=== PATIENT | male | born 2000 | race Caucasian/White ===

== ENCOUNTER 2024-08-16 17:33 | Inpatient (IN) | payer BC, OTHER ==
[2024-08-16] MEDS: ETOMIDATE 2 MG/ML 10 ML VIAL IVP STA (17:44)
[2024-08-16] MEDS: ROCURONIUM 10 MG/ML (5 ML VIAL) IV STA (17:45)
[2024-08-16 18:03] LABS: Glucose,Whole Blood 232 mg/dL (70-110)
[2024-08-16 18:17] LABS: Basophils # (A) 0.07 10*3/uL (0.00-0.10); Basophils % (A) 0.4 %; Eosinophils # (A) 0.14 10*3/uL (0.04-0.35); Eosinophils % (A) 0.9 %; HCT 42.2 % (39.6-50.0); HGB 14.2 g/dL (13.0-17.0); Lymphocytes # (A) 3.67 10*3/uL (0.90-5.00); Lymphocytes % (A) 22.9 %; MCH 32.2 pg (27.0-32.0); MCHC 33.6 g/dL (32.0-37.0); MCV 95.7 fL (80.0-97.0); Monocytes # (A) 0.61 10*3/uL (0.20-1.00); Monocytes % (A) 3.8 %; Neutrophils # (A) 10.76 10*3/uL (1.80-7.70); Neutrophils % (A) 67.3 %; Platelet Count 413 10*3/uL (140-440); RBC 4.41 10*6/uL (4.40-5.60); RDW 12.4 % (11.5-14.5); WBC 16.01 10*3/uL (4.50-10.00)
--- NOTE | 2024-08-16 18:18 | ED ---
SOB HPI - General Chief Complaint: Shortness of Breath Stated Complaint: SOB Time Seen by Provider: 08/16/24 17:40 Source: family, EMS Mode of arrival: EMS Limitations: physical limitation - History of Present Illness Initial Comments: 24-year-old male with past medical history of Duchenne's muscular dystrophy who presents to the emergency department from home. Patient is verbal, nonambulatory. He has a history of hypertension and takes lisinopril and atenolol. This morning the patient began having a cough and was having some difficulty clearing his secretions. Mother states that they had moved him to his wheelchair and the patient started gasping. His lips turned blue and the patient went unresponsive. They called EMS. They were instructed to start CPR. Patient had CPR for approximately 5 minutes according to mother and EMS. When they arrived on scene they placed the patient on the monitor and found that he had an organized rhythm. He was responsive and able to answer some questions however was still having difficulty breathing. The patient was bagged after a nasal airway was placed. EMS stated that his original saturations were in the 50s. He did not require any medications upon transfer into the hospital. Mot her states he is never had any breathing issues. He does use breathing treatments and they were administered today however did not seem to help him. He has not had any fevers. No sick contacts. No history of PEs or DVTs. No other alleviating, precipitating or modifying factors - Related Data Home Medications Medication Instructions Recorded Confirmed Ascorbic Acid [Vitamin C] 1,000 mg PO DAILY 08/16/24 08/16/24 Azelastine HCl [Astelin Nasal 1 spray EA NOSTRIL BID 08/16/24 08/16/24 [place]] Cetirizine HCl [Zyrtec] 10 mg PO DAILY 08/16/24 08/16/24 Inulin/Chromium Picolinate [Fiber 2 tab PO DAILY 08/16/24 08/16/24 Gummies Chew] Multivitamins, Thera [Multivitamin 1 tab PO DAILY 08/16/24 08/16/24 (formulary)] [place]-3/Dha/Epa/Fish Oil [Fish Oil 1 cap PO DAILY 08/16/24 08/16/24 1,000 mg Softgel] atenoloL [Tenormin] 25 mg PO DAILY 08/16/24 08/16/24 lisinopriL [Zestril] 5 mg PO DAILY 08/16/24 08/16/24 Allergies Allergy/AdvReac Type Severity Reaction Status Date / Time No Known Allergies Allergy Verified 08/16/24 19:56 Review of Systems ROS Statement: Those systems with pertinent positive or pertinent negative responses have been documented in the HPI. ROS Other: All systems not noted in ROS Statement are negative. Past Medical History Past Medical History: Musculoskeletal Disorder History of Any Multi-Drug Resistant Organisms: None Reported Past Surgical History: No Surgical Hx Reported Past Psychological History: No Psychological Hx Reported - Past Family History Father Family Medical History: Hypertension General Exam Limitations: physical limitation General appearance: alert, in distress Head exam: Present: atraumatic, normocephalic, normal inspection Eye exam: Present: normal appearance, PERRL, EOMI. Absent: scleral icterus, conjunctival injection, periorbital swelling Neck exam: Present: normal inspection. Absent: tenderness, meningismus, lymphadenopathy Respiratory exam: Present: accessory muscle use, decreased breath sounds, other (Agonal) Cardiovascular Exam: Present: bradycardia GI/Abdominal exam: Present: soft, normal bowel sounds. Absent: distended, tenderness, guarding, rebound, rigid Extremities exam: Present: normal inspection, full ROM, normal capillary refill. Absent: tenderness, pedal edema, joint swelling, calf tenderness Psychiatric exam: Present: anxious Skin exam: Present: pallor Course Vital Signs 08/16/24 08/16/24 08/16/24 17:35 17:40 18:05 Temperature 95 F L Pulse Rate 51 L 121 H Respiratory 30 H 24 18 Rate Blood Pressure 198/121 116/90 O2 Sat by Pulse 87 L 100 Oximetry Fraction of Inspired Oxygen (FIO2) 08/16/24 08/16/24 08/16/24 18:18 18:59 19:19 Temperature 95.5 F L 95.4 F L Pulse Rate 118 H 98 102 H Respiratory 18 18 23 Rate Blood Pressure 124/83 110/74 110/74 O2 Sat by Pulse 100 100 100 Oximetry Fraction of 100 Inspired Oxygen (FIO2) 08/16/24 08/16/24 08/16/24 19:50 20:00 20:54 Temperature 95.5 F L Pulse Rate 111 H 112 H 113 H Respiratory 23 24 11 L Rate Blood Pressure 118/91 113/86 O2 Sat by Pulse 100 98 Oximetry Fraction of Inspired Oxygen (FIO2) Procedures - Intubation Sedative: Etomidate Mg Given: 20 Paralytic: Rocuronium Mg Given: 50 Laryngoscope: fiber optic video scope Size: 3 ET Tube Size: 7.5 ET Tube Uncuffed: No Tube Secured Depth (cm): 23 Tube Secured Location: teeth Tube Placement Confirmation: visualized tube passing through cords, confirmation by capnometry Patient Tolerated Procedure: well, no complications Medical Decision Making - Medical Decision Making Was pt. sent in by a medical professional or institution (Dr. PA, DIRECTOR OF CHILD WELFARE SERVICES, urgent care, hospital, or retirement...) When possible be specific @ -No Did you speak to anyone other than the patient for history (EMS, parent, family, police, friend...)? What history was obtained from this source @ -I spoke with EMS for history who states that they had to bag the patient on the way in. I also spoke with mother who states that the respiratory distress was sudden onset Did you review nursing and triage notes (agree or disagree)? Why? @ -I reviewed and agree with nursing and triage notes Were old charts reviewed (outside hosp., previous admission, EMS record, old EKG, old radiological studies, urgent care reports/EKG's, retirement records)? Report findings @ -No old charts were reviewed Differential Diagnosis (chest pain, altered mental status, abdominal pain women, abdominal pain men, vaginal bleeding, weakness, fever, dyspnea, syncope, headache, dizziness, GI bleed, back pain, seizure, CVA, palpatations, mental health, musculoskeletal)? @ -Differential Dyspnea: Coronary syndrome, arrhythmia, tamponade, asthma, COPD, pulmonary embolism, pneumonia, pneumothorax, pulmonary effusion, anaphylaxis, diabetic ketoacidosis, flailed chest, pulmonary contusion, diaphragmatic rupture, anemia, neuromuscular, this is not meant to be an all-inclusive list. EKG interpreted by me (3pts min.). @ -Yes and demonstrates sinus tachycardia with a rate of 104. HI interval 138. QRS 115. QTc of 460. No acute ST segment elevations or depressions X-rays interpreted by me (1pt min.). @ -Yes which demonstrates left mainstem intubation CT interpreted by me (1pt min.). @ -Yes which demonstrates pneumomediastinum. Also atelectasis of the right middle lobe U/S interpreted by me (1pt. min.). @ -None done What testing was considered but not performed or refused? (CT, X-rays, U/S, labs)? Why? @ -None What meds were considered but not given or refused? Why? @ -None Did you discuss the management of the patient with other professionals (professionals i.e. , PA, DIRECTOR OF CHILD WELFARE SERVICES, lab, RT, psych nurse, manager social work, bleach liquor maker, teacher, forest fire officer, pillowcase cutter)? Give summary @ -I spoke with dr soto from [facility] and EM for admissions Was smoking cessation discussed for >3mins.? @ -No Was critical care preformed (if so, how long)? @ -Yes, 40 minutes of critical care time for intubation of the patient and management of vent settings Were there social determinants of health that impacted care today? How? (Homelessness, low income, unemployed, alcoholism, drug addiction, transportation, low edu. Level, literacy, decrease access to med. care, fci, rehab)? @ -No Was there de-escalation of care discussed even if they declined (Discuss DNR or withdrawal of care, Hospice)? DNR status @ -Yes, mother wants the patient to be a full code What co-morbidities impacted this encounter? (DM, HTN, Smoking, COPD, CAD, Cance r, CVA, ARF, Chemo, Hep., AIDS, mental health diagnosis, sleep apnea, morbid obesity)? @ -Duchenne's muscular dystrophy Was patient admitted / discharged? Hospital course, mention meds given and rout e, prescriptions, significant lab abnormalities, going to OR and other pertinent info. @ -Upon arrival patient was promptly evaluated in trauma 1. Thorough history and physical exam was performed. Patient has agonal breathing and pallor to his face. We did attempt to suction the patient however he is bradycardic and hypoxic and therefore rapid decision is made to intubate the patient. The pat ient was given 20 mg of etomidate. I am able to pass a 7 and half ET tube to the cords the patient is given 50 mg of rocuronium. Tube was secured at 23 cm at the teeth. patient is placed on the vent. Laboratory studies are conducted. Twelve-lead EKG was performed as well as an Accu-Chek. Chest x-ray does demonstrate left mainstem intubation and therefore the tube is retracted. Laboratory studies are conducted. Patient does go for CT chest abdomen pelvis. CT does demonstrate pneumomediastinum and atelectasis of the right lung - middle. Patient is initiated on antibiotics. He does require admission to the intensive care unit. I did speak with Dr. Soto with pilates instructor for admissi on. Patient was taken to the floor in stable condition with a guarded prognosis Undiagnosed new problem with uncertain prognosis? @ -Yes Drug Therapy requiring intensive monitoring for toxicity (Heparin, Nitro, Insulin, Cardizem)? @ -Propofol Were any procedures done? @ -Intubation Diagnosis/symptom? @ -Acute respiratory arrest, [id number] cardiac arrest with ROSC, vent dependent respiratory failure, possible aspiration, history of Duchenne's muscular dystrophy Acute, or Chronic, or Acute on Chronic? @ -Acute Uncomplicated (without systemic symptoms) or Complicated (systemic symptoms)? @ -Complicated Side effects of treatment? @ -No Exacerbation, Progression, or Severe Exacerbation? @ -No Poses a threat to life or bodily function? How? (Chest pain, [place], [place], pneumonia, PE, COPD, DKA, ARF, appy, cholecystitis, CVA, Diverticulitis, Homicidal, Suicidal, threat to staff... and all critical care pts) @ -Yes this patient did suffer [id number] cardiac arrest - Lab Data Result diagrams: 08/27/24 03:16 08/27/24 03:16 Lab Results 08/16/24 08/16/24 08/16/24 Range/Units 17:52 18:00 18:00 WBC 16.01 H (4.50-10.00) 10*3/uL RBC 4.41 (4.40-5.60) 10*6/uL Hgb 14.2 (13.0-17.0) g/dL Hct 42.2 (39.6-50.0) % MCV 95.7 (80.0-97.0) fL MCH 32.2 H (27.0-32.0) pg MCHC 33.6 (32.0-37.0) g/dL Plt Count 413 (140-440) 10*3/uL MPV 9.0 L (9.5-12.2) fL Immature Gran % (Auto) 4.7 % Neutrophils % 67.3 % Lymphocytes % 22.9 % Monocytes % 3.8 % Eosinophils % 0.9 % Basophils % 0.4 % Immature Gran # 0.76 H (0.00-0.04) 10*3/uL Neutrophils # 10.76 H (1.80-7.70) 10*3/uL Lymphocytes # 3.67 (0.90-5.00) 10*3/uL Monocytes # 0.61 (0.20-1.00) 10*3/uL Eosinophils # 0.14 (0.04-0.35) 10*3/uL Basophils # 0.07 (0.00-0.10) 10*3/uL PT 12.1 (10.0-12.5) sec INR 1.1 (<1.2) APTT 22.7 (22.0-30.0) sec VBG pH (7.31-7.41) VBG pCO2 (37-51) mmHg VBG HCO3 (24-28) mmol/L Sodium (137-145) mmol/L Potassium (3.5-5.1) mmol/L Chloride (98-107) mmol/L Carbon Dioxide (22-30) mmol/L Anion Gap mmol/L BUN (9-20) mg/dL Creatinine (0.66-1.25) mg/dL Est GFR (CKD-EPI)AfAm (>60 ml/min/1.73 sqM) Est GFR (CKD-EPI)NonAf (>60 ml/min/1.73 sqM) Glucose (74-99) mg/dL POC Glucose (mg/dL) 232 H (70-110) mg/dL POC Glu Furnace Mason ID Sarmad Powell Lactic Ac Sepsis Rflx Plasma Lactic Acid Rhett (0.7-2.0) mmol/L Calcium (8.4-10.2) mg/dL Total Bilirubin (0.2-1.3) mg/dL AST (17-59) U/L ALT (4-49) U/L Alkaline Phosphatase (38-126) U/L Troponin I (0.000-0.034) ng/mL NT-Pro-B Natriuret Pep pg/mL Total Protein (6.3-8.2) g/dL Albumin (3.5-5.0) g/dL Urine Color Urine Appearance (Clear) Urine pH (5.0-8.0) Ur Specific [place] (1.001-1.035) Urine Protein (Negative) Urine Glucose (UA) (Negative) Urine Ketones (Negative) Urine Blood (Negative) Urine Nitrite (Negative) Urine Bilirubin (Negative) Urine Urobilinogen (<2.0) mg/dL Ur Leukocyte Esterase (Negative) Urine RBC (0-5) /hpf Urine WBC (0-5) /hpf Hyaline Casts (0-2) /lpf Urine Mucus (None) /hpf 08/16/24 08/16/24 08/16/24 Range/Units 18:00 18:00 18:00 WBC (4.50-10.00) 10*3/uL RBC (4.40-5.60) 10*6/uL Hgb (13.0-17.0) g/dL Hct (39.6-50.0) % MCV (80.0-97.0) fL MCH (27.0-32.0) pg MCHC (32.0-37.0) g/dL Plt Count (140-440) 10*3/uL MPV (9.5-12.2) fL Immature Gran % (Auto) % Neutrophils % % Lymphocytes % % Monocytes % % Eosinophils % % Basophils % % Immature Gran # (0.00-0.04) 10*3/uL Neutrophils # (1.80-7.70) 10*3/uL Lymphocytes # (0.90-5.00) 10*3/uL Monocytes # (0.20-1.00) 10*3/uL Eosinophils # (0.04-0.35) 10*3/uL Basophils # (0.00-0.10) 10*3/uL PT (10.0-12.5) sec INR (<1.2) APTT (22.0-30.0) sec VBG pH (7.31-7.41) VBG pCO2 (37-51) mmHg VBG HCO3 (24-28) mmol/L Sodium 136 L (137-145) mmol/L Potassium 3.7 (3.5-5.1) mmol/L Chloride 99 (98-107) mmol/L Carbon Dioxide 22 (22-30) mmol/L Anion Gap 15 mmol/L BUN 9 (9-20) mg/dL Creatinine 0.19 L (0.66-1.25) mg/dL Est GFR (CKD-EPI)AfAm >90 (>60 ml/min/1.73 sqM) Est GFR (CKD-EPI)NonAf >90 (>60 ml/min/1.73 sqM) Glucose 215 H (74-99) mg/dL POC Glucose (mg/dL) (70-110) mg/dL POC Glu [place] ID Lactic Ac Sepsis Rflx Plasma Lactic Acid Rhett 7.0 H* (0.7-2.0) mmol/L Calcium 8.6 (8.4-10.2) mg/dL Total Bilirubin 0.8 (0.2-1.3) mg/dL AST 61 H (17-59) U/L ALT 48 (4-49) U/L Alkaline Phosphatase 51 (38-126) U/L Troponin I 0.034 (0.000-0.034) ng/mL NT-Pro-B Natriuret Pep <20 pg/mL Total Protein 6.7 (6.3-8.2) g/dL Albumin 4.1 (3.5-5.0) g/dL Urine Color Urine Appearance (Clear) Urine pH (5.0-8.0) Ur Specific Anderson (1.001-1.035) Urine Protein (Negative) Urine Glucose (UA) (Negative) Urine Ketones (Negative) Urine Blood (Negative) Urine Nitrite (Negative) Urine Bilirubin (Negative) Urine Urobilinogen (<2.0) mg/dL Ur Leukocyte Esterase (Negative) Urine RBC (0-5) /hpf Urine WBC (0-5) /hpf Hyaline Casts (0-2) /lpf Urine Mucus (None) /hpf 08/16/24 08/16/24 08/16/24 Range/Units 18:23 18:46 19:46 WBC (4.50-10.00) 10*3/uL RBC (4.40-5.60) 10*6/uL Hgb (13.0-17.0) g/dL Hct (39.6-50.0) % MCV (80.0-97.0) fL MCH (27.0-32.0) pg MCHC (32.0-37.0) g/dL Plt Count (140-440) 10*3/uL MPV (9.5-12.2) fL Immature Gran % (Auto) % Neutrophils % % Lymphocytes % % Monocytes % % Eosinophils % % Basophils % % Immature Gran # (0.00-0.04) 10*3/uL Neutrophils # (1.80-7.70) 10*3/uL Lymphocytes # (0.90-5.00) 10*3/uL Monocytes # (0.20-1.00) 10*3/uL Eosinophils # (0.04-0.35) 10*3/uL Basophils # (0.00-0.10) 10*3/uL PT (10.0-12.5) sec INR (<1.2) APTT (22.0-30.0) sec VBG pH 7.21 L (7.31-7.41) VBG pCO2 61 H (37-51) mmHg VBG HCO3 25 (24-28) mmol/L Sodium (137-145) mmol/L Potassium (3.5-5.1) mmol/L Chloride (98-107) mmol/L Carbon Dioxide (22-30) mmol/L Anion Gap mmol/L BUN (9-20) mg/dL Creatinine (0.66-1.25) mg/dL Est GFR (CKD-EPI)AfAm (>60 ml/min/1.73 sqM) Est GFR (CKD-EPI)NonAf (>60 ml/min/1.73 sqM) Glucose (74-99) mg/dL POC Glucose (mg/dL) (70-110) mg/dL POC Glu [place] ID Lactic Ac Sepsis Rflx Y Plasma Lactic Acid Rhett (0.7-2.0) mmol/L Calcium (8.4-10.2) mg/dL Total Bilirubin (0.2-1.3) mg/dL AST (17-59) U/L ALT (4-49) U/L Alkaline Phosphatase (38-126) U/L Troponin I (0.000-0.034) ng/mL NT-Pro-B Natriuret Pep pg/mL Total Protein (6.3-8.2) g/dL Albumin (3.5-5.0) g/dL Urine Color Yellow Urine Appearance Cloudy (Clear) Urine pH 6.5 (5.0-8.0) Ur Specific Anderson 1.025 (1.001-1.035) Urine Protein 1+ H (Negative) Urine Glucose (UA) Negative (Negative) Urine Ketones 2+ H (Negative) Urine Blood Moderate H (Negative) Urine Nitrite Negative (Negative) Urine Bilirubin Negative (Negative) Urine Urobilinogen 2.0 (<2.0) mg/dL Ur Leukocyte Esterase Negative (Negative) Urine RBC 5 (0-5) /hpf Urine WBC 1 (0-5) /hpf Hyaline Casts 23 H (0-2) /lpf Urine Mucus Few H (None) /hpf Disposition Clinical Impression: Cardiac arrest, Respiratory arrest, Atelectasis, Leukocytosis Disposition: ADMITTED IP TO THIS [facility] Condition: Serious Is patient prescribed a controlled substance at d/c from ED?: No Time of Disposition: 19:53 Decision to Admit Reason: Admit from EC Decision Date: 08/16/24 Decision Time: 19:53
[2024-08-16 18:24] LABS: ALT 48 U/L (4-49); African American GFR (CKD) >90 (>60 ml/min/1.73 sqM); Albumin 4.1 g/dL (3.5-5.0); Anion Gap 15 mmol/L; Blood Urea Nitrogen 9 mg/dL (9-20); Calcium 8.6 mg/dL (8.4-10.2); Carbon Dioxide 22 mmol/L (22-30); Chloride 99 mmol/L (98-107); Glucose 215 mg/dL (74-99); Non-African American GFR(CKD) >90 (>60 ml/min/1.73 sqM); Sodium 136 mmol/L (137-145); Total Bilirubin 0.8 mg/dL (0.2-1.3); Total Protein 6.7 g/dL (6.3-8.2)
[2024-08-16 18:26] LABS: INR 1.1 (<1.2); Prothrombin Time 12.1 sec (10.0-12.5)
[2024-08-16 18:27] LABS: Partial Thromboplastin Time 22.7 sec (22.0-30.0)
[2024-08-16 18:32] LABS: NT-Pro-B-Type Natriuretic Pept <20 pg/mL
--- NOTE | 2024-08-16 18:35 | XR ---
EXAMINATION TYPE: XR chest 1V portable, XR chest 1V portable DATE OF EXAM: 08/16/2024 6:04 PM COMPARISON: Chest radiographs from same day CLINICAL INDICATION: Male, 24 years old with history of Line placement; [facility] TECHNIQUE: Sequential frontal radiographs of the chest were performed x 2 XR chest 1V portable, XR ch est 1V portable Frontal view of the chest. FINDINGS: Lungs/Pleura: Elevated right diaphragm. There is no evidence of pleural effusion, focal consolidation , or pneumothorax. Pulmonary vascularity: Unremarkable. Heart/mediastinum: Cardiomediastinal silhouette is unremarkable. Musculoskeletal: No acute osseous pathology. Endotracheal tube remains within the left main bronchus. Gaseous distention of bowel in the upper abdomen. IMPRESSION: 1. Endotracheal tube in the left main bronchus. Retraction recommended of 2-3 cm 2. Gaseous distention of bowel and stomach. Consider nasogastric tube placement. [facility], , 08/16/2024 6:33 PM
[2024-08-16 18:46] LABS: AST 61 U/L (17-59); Potassium 3.7 mmol/L (3.5-5.1)
[2024-08-16 18:47] LABS: Alkaline Phosphatase 51 U/L (38-126)
[2024-08-16] MEDS: LACTATED RINGERS 1,000 ML IV SCH ×2 (18:57→22:48)
[2024-08-16 19:00] LABS: Appearance,Urine Cloudy (Clear); Bilirubin,Urine Negative (Negative); Blood,Urine Moderate (Negative); Color,Urine Yellow; Glucose,Urine (UA) Negative (Negative); Hyaline Casts,Urine 23 /lpf (0-2); Ketones,Urine 2+ (Negative); Leukocyte Esterase,Urine Negative (Negative); Mucus,Urine Few /hpf; Nitrite,Urine Negative (Negative); PH, Urine 6.5 (5.0-8.0); Protein,Urine 1+ (Negative); RBC,Urine 5 /hpf (0-5); Specific Gravity,Urine 1.025 (1.001-1.035); WBC,Urine 1 /hpf (0-5)
--- NOTE | 2024-08-16 19:26 | CT ---
EXAMINATION TYPE: CT chest angio for PE, CT abdomen w con DATE OF EXAM: 08/16/2024 6:59 PM COMPARISON: Plain film radiograph same day. 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 No prior TECHNIQUE/CONTRAST: CTA scan of the thorax is performed with IV Contrast, patient injected with 100ml (accession [id number] ), 100 ml (accession [id number]) mL of Isovue 370, MIP images are created and reviewed these are create d on a separate workstation.. CT DLP: 1346.2 mGycm, Automated exposure control for dose reduction was used. TECHNIQUE: Axial CT chest angio for PE, CT abdomen w con;Sagittal and coronal reformats were created on a separate workstation. Contrast used:100ml (accession [id number]), 100 ml (accession [id number]) mL of Isovue [address], (none if empty) Oral contrast used: without Oral Contrast (none if empty) FINDINGS: Lungs/Pleura: Atelectasis of the right middle lobe. No evidence of focal consolidation, pleural effus ion or pneumothorax. Airway: Secretions are seen within the right middle lobe and right lower lobe airways. Endotracheal t ube approximately 13 mm above the meir. Heart: Size within normal limits. No significant coronary artery calcifications. Vasculature: There is no evidence for a filling defect within the pulmonary vasculature to suggest ac jerrica pulmonary embolism. The pulmonary artery is of normal size. Mediastinum: Pneumomediastinum noted around the esophagus and trachea. No gross evidence of adenopath y. Musculoskeletal: No acute osseous abnormalities scoliosis changes present. Soft Tissues/lymph nodes: Gynecomastia changes bilaterally. Lower neck: No significant findings. ABDOMEN LIVER: Diffusely hypoattenuating parenchyma. GALLBLADDER AND BILE DUCTS: Unremarkable. PANCREAS: Unremarkable. SPLEEN: Unremarkable. ADRENAL GLANDS: Unremarkable. KIDNEYS AND URETERS: No evidence of hydronephrosis or obstructing renal calculus. The ureters are unr emarkable. STOMACH AND BOWEL: No evidence of bowel obstruction. Nasogastric tube terminating in the gastric lume n. Gaseous dilation of bowel in the upper abdomen and stomach. PERITONEUM/RETROPERITONEUM: No evidence of pneumoperitoneum or free fluid. VASCULATURE: No evidence of aortic aneurysm. MUSCULOSKELETAL: Severe scoliosis changes present. Atrophy changes of the psoas muscles bilaterally p artially visualized. LYMPH NODES: No gross evidence for lymphadenopathy. SOFT TISSUE/ABDOMINAL WALL: Unremarkable IMPRESSION: 1. No evidence of pulmonary embolism. 2. Pneumomediastinum no obvious airway defect visualized. 3. No evidence for bowel obstruction. Gaseous dilation of bowel in the upper abdomen. 4. Endotracheal tube now approximately 13 mm above the meir. 5. Secretions within the right lower lobe and right middle lobe airways with atelectasis of the righ t middle lobe. 6. No acute intra-abdominal process. 7. Hepatic steatosis. 8. Nasogastric tube terminating in the stomach. [facility], , 08/16/2024 7:23 PM
[2024-08-16] MEDS ORDERED: NALOXONE 0.4 MG/ML 1 ML VIAL IV PRN (20:00)
[2024-08-16] MEDS ORDERED: IPRATROPIUM-ALBUTEROL 3 ML NEB INHALATION PRN (20:00)
[2024-08-16] MEDS ORDERED: Potassium Replacement Protocol 1 EACH MISC MISCELLANE PRN (20:00)
[2024-08-16] MEDS ORDERED: Magnesium Replacement Protocol 1 EACH MISC MISCELLANE PRN (20:00)
[2024-08-16 20:03] LABS: VBG PH 7.21 (7.31-7.41)
[2024-08-16] MEDS: cefTRIAXone IN SWFI 1,000 MG/10 ML SYRINGE IVP ONE (20:15)
[2024-08-16 20:55] LABS: Glucose,Whole Blood 129 mg/dL (70-110)
[2024-08-16] MEDS ORDERED: HYDROmorphone 0.5 MG/0.5 ML SYRINGE IM PRN (21:53)
[2024-08-16] MEDS: SCOPOLAMINE 1 MG/72 HR PATCH TRANSDERM STA (22:47)
[2024-08-16] MEDS: ACETAMINOPHEN TAB 325 MG TAB PO PRN (22:48)
[2024-08-17] MEDS: HYDROmorphone 0.5 MG/0.5 ML SYRINGE IVP PRN (02:18)
[2024-08-17 04:31] LABS: Basophils # (A) 0.02 10*3/uL (0.00-0.10); Basophils % (A) 0.1 %; HCT 40.1 % (39.6-50.0); Lymphocytes # (A) 1.26 10*3/uL (0.90-5.00); Lymphocytes % (A) 7.2 %; MCH 31.9 pg (27.0-32.0); MCHC 34.9 g/dL (32.0-37.0); MCV 91.3 fL (80.0-97.0); Monocytes # (A) 1.19 10*3/uL (0.20-1.00); Monocytes % (A) 6.8 %; Neutrophils # (A) 15.06 10*3/uL (1.80-7.70); Neutrophils % (A) 85.6 %; Platelet Count 348 10*3/uL (140-440); RBC 4.39 10*6/uL (4.40-5.60); RDW 12.3 % (11.5-14.5); WBC 17.58 10*3/uL (4.50-10.00)
[2024-08-17 04:45] LABS: Anion Gap 17 mmol/L; Blood Urea Nitrogen 2 mg/dL (9-20); Calcium 8.9 mg/dL (8.4-10.2); Carbon Dioxide 16 mmol/L (22-30); Chloride 99 mmol/L (98-107); Glucose 75 mg/dL (74-99); Potassium 3.6 mmol/L (3.5-5.1); Sodium 132 mmol/L (137-145)
[2024-08-17 05:02] LABS: African American GFR (CKD) >90 (>60 ml/min/1.73 sqM); Non-African American GFR(CKD) >90 (>60 ml/min/1.73 sqM)
[2024-08-17 05:32] LABS: ABG Base Excess -4.3 mmol/L; ABG HCO3 19 mmol/L (21-25); ABG Oxygen Saturation 99.8 % (94-97); ABG PCO2 29 mmHg (35-45); ABG PH 7.42 (7.35-7.45); ABG PO2 158 mmHg (83-108); ABG TCO2 20 mmol/L (19-24)
--- NOTE | 2024-08-17 05:42 | XR ---
EXAMINATION TYPE: XR chest 1V portable DATE OF EXAM: 08/17/2024 CLINICAL INDICATION: Male, 24 years old with history of Tube placement, progress study. SOB. TECHNIQUE: Single AP portable semiupright view of the chest is obtained. COMPARISON: Chest x-ray from one day earlier FINDINGS: Exam is suboptimal due to patient's marked scoliosis and positioning. Persistent low-lying endotracheal tube at level of meir should be pulled back 2.0 cm. Stable orogas tric tube. Persistent low lung volumes with more prominent central increased opacities bilaterally. Cardiac silh ouette size stable and within normal limits. IMPRESSION: 1. Suboptimal study. 2. Low-lying endotracheal tube should be pulled back 2.0 cm to be in more ideal position. 3. New bilateral central opacities suggest moderate to severe edema. Correlate for fluid overload sta te. [facility], , 08/17/2024 5:39 AM
[2024-08-17] MEDS: POTASSIUM BICARBONATE/CIT AC 20 MEQ TABLET.EFF NG-TUBE SCH (06:03)
[2024-08-17 06:45] LABS: Glucose,Whole Blood 74 mg/dL (70-110)
[2024-08-17 06:45] LABS: Allen Test Performed? No
[2024-08-17] MEDS: PANTOPRAZOLE 40 MG/10 ML VIAL IVP SCH (08:21)
[2024-08-17] MEDS: CHLORHEXIDINE GLUCONATE 15 ML CUP MUCOUS MEM SCH (08:21)
[2024-08-17] MEDS: ENOXAPARIN 40 MG/0.4 ML SYRINGE SQ SCH (08:21)
[2024-08-17] MEDS: atenoloL 25 MG TAB PO SCH (09:09)
[2024-08-17] MEDS: IPRATROPIUM-ALBUTEROL 3 ML NEB INHALATION SCH (11:31)
--- NOTE | 2024-08-17 12:02 | P.CNPUL ---
History of Present Illness Consult date: 08/17/24 Requesting physician: Estella Alvarez Reason for consult: other (ICU management, acute hypoxic respiratory failure) Chief complaint: Shortness of breath and unresponsiveness History of present illness: This is a 25-year-old white male known history of Duchenne muscular dystrophy, wheelchair-bound, nonambulatory, brought in last night to the emergency room, shortly after he had a cough episode, and patient had difficulty clearing his secretions according to his mother and dad. Patient was noted to be gasping for air, then he was moved to his wheelchair and he started developing more gasping episodes. Then the patient went blue and unresponsive. EMS was brought in started CPR on the patient for about 5 minutes. Shortly after patient was noted to have return of spontaneous circulation, he was responsive, however he was still having difficulty breathing. Patient was Ambu bag and brought into the ER. Upon arrival, patient was intubated and mechanically ventilated. According to family the patient was not sick recently, he had no fever, no chills, and no sick contacts. No history of pulmonary embolism or DVT. Patient had extensive workup in the ER including a chest x-ray, CT angiogram of the chest, and CT of abdomen. CT angiogram of the chest showed no evidence of pulmonary embolism there was evidence however of small pneumomediastinum endotracheal tube was noted to be in proper positions. There was evidence of secretions within the right lower lobe and right middle lobe and atelectasis of the right middle lobe. No evidence of intra-abdominal process noted. And it confirmed orogastric tube in the stomach. Patient was placed empirically on antibiotics, I was notified about this patient, and I accepted the patient to be admitted to the ICU. Saw the patient today, he is on assist-control rate of 22 tidal volume 350 FiO2 was 50% and I cut it down to 40% PEEP of 5. ABG earlier today at 60% showed a pO2 of 158 pCO2 29 pH of 7.42. Patient is on propofol at 45 mcg/kg/min he is also on LR at 100 cc/h patient is normally on atenolol and he had a scopolamine patch applied because of excessive secretions through the endotracheal tube. Antibiotics chase patient is on Rocephin and Zithromax. Chest x-ray today is a very poor quality especially with his body habitus cannot tell much based on chest x-ray findings. Extremely suboptimal chest x-ray. I was about to consider weaning and extubation of this patient, however I noted that the patient had leukocytosis with WBC of 17.5, his electrolytes are reflecting anion gap metabolic acidosis with bicarb of 16 and anion gap of 17. Lactic acid was normal electrolytes were relatively unremarkable except for slightly low sodium and potassium, hence I will hold back on weaning today, the plan is to continue antibiotics, continue suctioning of secretions, and weaning to be addressed in the next 24 hours. I believe it is a bit too early to wean and extubate this patient at this point yet. Review of Systems ROS unobtainable: due to endotracheal tube Past Medical History Past Medical History: Musculoskeletal Disorder Additional Past Medical History / Comment(s): Seasonal allergies, CPAP HS, History of Any Multi-Drug Resistant Organisms: None Reported Past Surgical History: No Surgical Hx Reported Past Anesthesia/Blood Transfusion Reactions: No Reported Reaction Past Psychological History: No Psychological Hx Reported - Past Family History Father Family Medical History: Hypertension Medications and Allergies Home Medications Medication Instructions Recorded Confirmed Type Ascorbic Acid [Vitamin C] 1,000 mg PO DAILY 08/16/24 08/16/24 History Azelastine HCl [Astelin Nasal 1 spray EA NOSTRIL BID 08/16/24 08/16/24 History [place]] Cetirizine HCl [Zyrtec] 10 mg PO DAILY 08/16/24 08/16/24 History Inulin/Chromium Picolinate [Fiber 2 tab PO DAILY 08/16/24 08/16/24 History Gummies Chew] Multivitamins, Thera [Multivitamin 1 tab PO DAILY 08/16/24 08/16/24 History (formulary)] [place]-3/Dha/Epa/Fish Oil [Fish Oil 1 cap PO DAILY 08/16/24 08/16/24 History 1,000 mg Softgel] atenoloL [Tenormin] 25 mg PO DAILY 08/16/24 08/16/24 History lisinopriL [Zestril] 5 mg PO DAILY 08/16/24 08/16/24 History Allergies Allergy/AdvReac Type Severity Reaction Status Date / Time No Known Allergies Allergy Verified 08/16/24 19:56 Physical Exam Vitals: Vital Signs Temp Pulse Resp BP Pulse Ox FiO2 08/17/24 11:41 126 H 08/17/24 11:35 100 08/17/24 11:33 40 08/17/24 11:31 124 H 08/17/24 11:00 120 H 22 92/56 99 08/17/24 10:00 121 H 22 98 08/17/24 09:00 133 H 22 97/61 100 08/17/24 08:49 40 08/17/24 08:00 99.3 F 134 H 21 90/59 99 50 08/17/24 07:52 100 08/17/24 07:39 50 08/17/24 07:00 138 H 22 89/66 99 08/17/24 06:46 50 08/17/24 06:00 134 H 22 102/61 100 08/17/24 05:00 122 H 22 86/67 100 08/17/24 04:01 60 08/17/24 04:00 98.4 F 123 H 22 97/68 99 60 08/17/24 03:00 133 H 22 96/57 99 08/17/24 02:00 118 H 22 100 08/17/24 01:00 113 H 22 100 08/17/24 00:05 60 08/17/24 00:00 98.2 F 111 H 22 99 100 08/16/24 23:22 114 H 22 93 L 08/16/24 23:00 112 H 17 98 08/16/24 22:21 60 08/16/24 22:00 112 H 18 122/90 08/16/24 21:00 115 H 19 100 08/16/24 20:55 95.7 F L 112 H 24 133/99 99 08/16/24 20:54 113 H 11 L 08/16/24 20:00 95.5 F L 112 H 24 113/86 98 08/16/24 19:50 111 H 23 118/91 100 08/16/24 19:19 95.4 F L 102 H 23 110/74 100 08/16/24 18:59 95.5 F L 98 18 110/74 100 08/16/24 18:18 118 H 18 124/83 100 100 08/16/24 18:17 100 08/16/24 18:05 121 H 18 116/90 100 08/16/24 17:40 24 08/16/24 17:35 95 F L 51 L 30 H 198/121 87 L Intake and Output 08/16/24 08/17/24 08/17/24 22:59 06:59 14:59 Intake Total 220.536 943.788 129 Output Total 65 570 290 Balance 155.536 373.788 -161 Intake: IV 200 824 129 Lactated Ringers 1,000 ml 200 800 120 @ 100 mls/hr IV .Q10H [facility] Rx#:[id number] Pressure Bag 24 9 Intake, IV Titration 20.536 119.788 Amount propofoL 1,000 mg In 20.536 119.788 Empty Bag 1 bag @ 15 MCG/ KG/MIN 6.12 mls/hr IV . [id number] [facility] Rx#:[id number] Output: Urine 65 570 290 Other: Voiding Method Indwelling Catheter Indwelling Catheter Weight 68.039 kg 71.1 kg ABP, PAP, CO, CI - Last 8 Hours Arterial Blood Pressure 93/74 Arterial Blood Pressure 87/55 Arterial Blood Pressure 99/59 General: Revealed a 24-year-old intubated, mechanically ventilated, frail looking, in no distress. Skin: Skin is warm and dry and no rashes or lesions are noted. Eye: Pupils are equal, round and reactive to light, extra-ocular movements are intact; there is normal conjunctiva bilaterally. Ears, nose, mouth and throat: There are moist mucous membranes and no oral lesions. Neck: The neck is supple, there is no tenderness or JVD. Endotracheal tube and orogastric tube are intact. Cardiovascular: Tachycardic, normal S1-S2, no S3 gallop. Respiratory: Diminished breath sounds at the bases no crackles rhonchi or wheezes Gastrointestinal: Soft nontender no megaly no rebound no guarding Musculoskeletal: Significant muscle atrophy and contractures noted throughout. Neurological: Muscle atrophy and weakness noted, upper extremities and lower extremities contractures noted Results - Laboratory Findings CBC and BMP: 08/17/24 04:17 08/17/24 04:17 ABG ABG pH 7.42 (7.35-7.45) 08/17/24 04:59 ABG pCO2 29 mmHg (35-45) L 08/17/24 04:59 ABG pO2 158 mmHg (83-108) H 08/17/24 04:59 ABG O2 Saturation 99.8 % (94-97) H 08/17/24 04:59 PT/INR, D-dimer PT 12.1 sec (10.0-12.5) 08/16/24 18:00 INR 1.1 (<1.2) 08/16/24 18:00 Abnormal lab findings: Abnormal Labs 08/16/24 08/16/24 08/16/24 17:52 18:00 18:00 WBC 16.01 H RBC MCH 32.2 H MPV 9.0 L Immature Gran # 0.76 H Neutrophils # 10.76 H Monocytes # Eosinophils # ABG pCO2 ABG pO2 ABG HCO3 ABG O2 Saturation VBG pH VBG pCO2 Sodium 136 L Carbon Dioxide BUN Creatinine 0.19 L Glucose 215 H POC Glucose (mg/dL) 232 H Plasma Lactic Acid Rhett AST 61 H Urine Protein Urine Ketones Urine Blood Hyaline Casts Urine Mucus 08/16/24 08/16/24 08/16/24 18:00 18:23 19:46 WBC RBC MCH MPV Immature Gran # Neutrophils # Monocytes # Eosinophils # ABG pCO2 ABG pO2 ABG HCO3 ABG O2 Saturation VBG pH 7.21 L VBG pCO2 61 H Sodium Carbon Dioxide BUN Creatinine Glucose POC Glucose (mg/dL) Plasma Lactic Acid Rhett 7.0 H* AST Urine Protein 1+ H Urine Ketones 2+ H Urine Blood Moderate H Hyaline Casts 23 H Urine Mucus Few H 08/16/24 08/16/24 08/17/24 20:53 21:04 04:17 WBC 17.58 H RBC 4.39 L MCH MPV 9.0 L Immature Gran # 0.05 H Neutrophils # 15.06 H Monocytes # 1.19 H Eosinophils # 0.00 L ABG pCO2 ABG pO2 ABG HCO3 ABG O2 Saturation VBG pH VBG pCO2 Sodium Carbon Dioxide BUN Creatinine Glucose POC Glucose (mg/dL) 129 H Plasma Lactic Acid Rhett 5.2 H* AST Urine Protein Urine Ketones Urine Blood Hyaline Casts Urine Mucus 08/17/24 08/17/24 04:17 04:59 WBC RBC MCH MPV Immature Gran # Neutrophils # Monocytes # Eosinophils # ABG pCO2 29 L ABG pO2 158 H ABG HCO3 19 L ABG O2 Saturation 99.8 H VBG pH VBG pCO2 Sodium 132 L Carbon Dioxide 16 L BUN 2 L Creatinine <0.15 L Glucose POC Glucose (mg/dL) Plasma Lactic Acid Rhett AST Urine Protein Urine Ketones Urine Blood Hyaline Casts Urine Mucus - Diagnostic Findings Chest x-ray: image reviewed (As noted in HPI) Additional studies: CT of the chest: As noted in HPI Assessment and Plan Assessment: Impression: Acute hypoxic respiratory failure most likely secondary to mucous plugging Right lower lobe and right middle lobe atelectasis, possible pneumonia considering leukocytosis and metabolic acidosis Acute sepsis secondary to above Brief cardiac arrest secondary to above History of Duchenne muscular dystrophy Chronic sinus tachycardia maintained on atenolol Seasonal allergic rhinitis Benign essential hypertension Recommendation: Continue ventilatory support Continue bronchodilators Continue antibiotics Check sputum cultures and change antibiotics accordingly if felt necessary Continue suctioning of tracheal secretions Not ready for weaning however that could be considered in the next 24 hours, nutritional support/enteral feeding GI and DVT prophylaxis Could consider bronchoscopy prior to weaning if felt to be needed Discussed and reviewed with family at bedside his overall condition prognosis and hopefully the patient could be extubated in the next 24 hours Will continue to follow Patient is critically ill and has significant comorbidities which may hinder the process of weaning and extubation successfully. Critical care time is over 50 minutes. Time with Patient: Greater than 30
[2024-08-17 12:12] LABS: Glucose,Whole Blood 58 mg/dL (70-110)
[2024-08-17] MEDS: DEXTROSE 50% SYRINGE 50 ML IVP STA (12:14)
[2024-08-17 12:37] LABS: Glucose,Whole Blood 96 mg/dL (70-110)
--- NOTE | 2024-08-17 13:32 | P.HPIM ---
History of Present Illness H&P Date: 08/17/24 History of present illness; patient is a 24-year-old gentleman with past medical history significant for Duchenne muscular dystrophy who presents the ER from home for respiratory distress. Apparently patient was all right yesterday morning when while at home patient starting having cough and started having shortness of breath. Patient started gasping for air, patient went unresponsive, patient family started CPR and EMS was called. Patient had CPR for approximately 5 minutes. EMS arrived at the spot and bagged en route to the hospital. In the ER, patient was continued to have respiratory distress and was intubated Initial lab work done in the ER showed WBC 7.01, hemoglobin 14.2, platelet count 413 sodium 138, potassium 3.7, chloride 99, BUN 9, creatinine 0.19, glucose 215, lactate 7, AST 61, troponin 0.034 UA done showed no infection EKG done in the ER showed heart rate of , no ST segment elevation or depression seen, no T-wave inversions seen. Chest x-ray done in the ER showed endotracheal tube in the left main bronchus, retraction recommended of 2 to 3 cm. gaseous distention of bowel and stomach CT chest PE protocol done showed no evidence of PE, no evidence of bowel obstruc tion. Secretions in the right lower lobe and right middle lobe airways with atelectasis of the right middle lobe Patient admitted to internal medicine service REVIEW OF SYSTEMS: Review of system cannot be obtained as patient currently intubated PHYSICAL EXAMINATION: GENERAL: The patient is intubated HEENT: Pupils are round and equally reacting to light. EOMI. No scleral icterus. No conjunctival pallor. Normocephalic, atraumatic. No pharyngeal erythema. No thyromegaly. CARDIOVASCULAR: S1 and S2 present. No murmurs, rubs, or gallops. PULMONARY: Coarse breath sound bilaterally, diminished at the bases ABDOMEN: Soft, nontender, nondistended, normoactive bowel sounds. No palpable organomegaly. MUSCULOSKELETAL: No joint swelling or deformity. EXTREMITIES: No cyanosis, clubbing, or pedal edema. NEUROLOGICAL: Intubated SKIN: No rashes. Assessment and plan Acute hypoxic respiratory failure Bacterial pneumonia Sepsis Cardiac arrest Lactic acidosis History of Duchenne's muscle dystrophy Chronic sinus tachycardia maintained on atenolol Seasonal allergic rhinitis Benign essential hypertension Monitor vital signs Monitor CBC Monitor CMP Continue telemetry monitoring Serial ABGs Continue vent management Serial chest x-rays Ordered breathing treatment Continue IV Rocephin Ordered Pro-Deric Consult pulmonary Labs and medication were reviewed.. Continue same treatment. Continue with symptomatic treatment. Resume home medication. Monitor labs and vitals. DVT and GI prophylaxis. Further recommendations as per clinical course of the patient Dictation was produced using [employer] dictation software. please excuse any grammatical, word or spelling errors. Past Medical History Past Medical History: Musculoskeletal Disorder Additional Past Medical History / Comment(s): Seasonal allergies, CPAP HS, History of Any Multi-Drug Resistant Organisms: None Reported Past Surgical History: No Surgical Hx Reported Past Anesthesia/Blood Transfusion Reactions: No Reported Reaction Past Psychological History: No Psychological Hx Reported - Past Family History Father Family Medical History: Hypertension Medications and Allergies Home Medications Medication Instructions Recorded Confirmed Type Ascorbic Acid [Vitamin C] 1,000 mg PO DAILY 08/16/24 08/16/24 History Azelastine HCl [Astelin Nasal 1 spray EA NOSTRIL BID 08/16/24 08/16/24 History [place]] Cetirizine HCl [Zyrtec] 10 mg PO DAILY 08/16/24 08/16/24 History Inulin/Chromium Picolinate [Fiber 2 tab PO DAILY 08/16/24 08/16/24 History Gummies Chew] Multivitamins, Thera [Multivitamin 1 tab PO DAILY 08/16/24 08/16/24 History (formulary)] [place]-3/Dha/Epa/Fish Oil [Fish Oil 1 cap PO DAILY 08/16/24 08/16/24 History 1,000 mg Softgel] atenoloL [Tenormin] 25 mg PO DAILY 08/16/24 08/16/24 History lisinopriL [Zestril] 5 mg PO DAILY 08/16/24 08/16/24 History Allergies Allergy/AdvReac Type Severity Reaction Status Date / Time No Known Allergies Allergy Verified 08/16/24 19:56 Physical Exam Vitals: Vital Signs Temp Pulse Resp BP Pulse Ox FiO2 08/17/24 09:00 133 H 22 97/61 100 08/17/24 08:49 40 08/17/24 08:00 99.3 F 134 H 21 90/59 99 50 08/17/24 07:52 100 08/17/24 07:39 50 08/17/24 07:00 138 H 22 89/66 99 08/17/24 06:46 50 08/17/24 06:00 134 H 22 102/61 100 08/17/24 05:00 122 H 22 86/67 100 08/17/24 04:01 60 08/17/24 04:00 98.4 F 123 H 22 97/68 99 60 08/17/24 03:00 133 H 22 96/57 99 08/17/24 02:00 118 H 22 100 08/17/24 01:00 113 H 22 100 08/17/24 00:05 60 08/17/24 00:00 98.2 F 111 H 22 99 100 08/16/24 23:22 114 H 22 93 L 08/16/24 23:00 112 H 17 98 08/16/24 22:21 60 08/16/24 22:00 112 H 18 122/90 08/16/24 21:00 115 H 19 100 08/16/24 20:55 95.7 F L 112 H 24 133/99 99 08/16/24 20:54 113 H 11 L 08/16/24 20:00 95.5 F L 112 H 24 113/86 98 08/16/24 19:50 111 H 23 118/91 100 08/16/24 19:19 95.4 F L 102 H 23 110/74 100 08/16/24 18:59 95.5 F L 98 18 110/74 100 08/16/24 18:18 118 H 18 124/83 100 100 08/16/24 18:17 100 08/16/24 18:05 121 H 18 116/90 100 08/16/24 17:40 24 08/16/24 17:35 95 F L 51 L 30 H 198/121 87 L Intake and Output 08/16/24 08/17/24 08/17/24 22:59 06:59 14:59 Intake Total 220.536 943.788 129 Output Total 65 570 290 Balance 155.536 373.788 -161 Intake: IV 200 824 129 Lactated Ringers 1,000 ml 200 800 120 @ 100 mls/hr IV .Q10H [facility] Rx#:[id number] Pressure Bag 24 9 Intake, IV Titration 20.536 119.788 Amount propofoL 1,000 mg In 20.536 119.788 Empty Bag 1 bag @ 15 MCG/ KG/MIN 6.12 mls/hr IV . [id number] [facility] Rx#:[id number] Output: Urine 65 570 290 Other: Voiding Method Indwelling Catheter Indwelling Catheter Weight 68.039 kg 71.1 kg ABP, PAP, CO, CI - Last 8 Hours Arterial Blood Pressure 99/59 Results CBC & Chem 7: 08/17/24 04:17 08/17/24 04:17 Labs: Abnormal Lab Results - Last 24 Hours (Table) 08/16/24 08/16/24 08/16/24 Range/Units 17:52 18:00 18:00 WBC 16.01 H (4.50-10.00) 10*3/uL RBC (4.40-5.60) 10*6/uL MCH 32.2 H (27.0-32.0) pg MPV 9.0 L (9.5-12.2) fL Immature Gran # 0.76 H (0.00-0.04) 10*3/uL Neutrophils # 10.76 H (1.80-7.70) 10*3/uL Monocytes # (0.20-1.00) 10*3/uL Eosinophils # (0.04-0.35) 10*3/uL ABG pCO2 (35-45) mmHg ABG pO2 (83-108) mmHg ABG HCO3 (21-25) mmol/L ABG O2 Saturation (94-97) % VBG pH (7.31-7.41) VBG pCO2 (37-51) mmHg Sodium 136 L (137-145) mmol/L Carbon Dioxide (22-30) mmol/L BUN (9-20) mg/dL Creatinine 0.19 L (0.66-1.25) mg/dL Glucose 215 H (74-99) mg/dL POC Glucose (mg/dL) 232 H (70-110) mg/dL Plasma Lactic Acid Rhett (0.7-2.0) mmol/L AST 61 H (17-59) U/L Urine Protein (Negative) Urine Ketones (Negative) Urine Blood (Negative) Hyaline Casts (0-2) /lpf Urine Mucus (None) /hpf 08/16/24 08/16/24 08/16/24 Range/Units 18:00 18:23 19:46 WBC (4.50-10.00) 10*3/uL RBC (4.40-5.60) 10*6/uL MCH (27.0-32.0) pg MPV (9.5-12.2) fL Immature Gran # (0.00-0.04) 10*3/uL Neutrophils # (1.80-7.70) 10*3/uL Monocytes # (0.20-1.00) 10*3/uL Eosinophils # (0.04-0.35) 10*3/uL ABG pCO2 (35-45) mmHg ABG pO2 (83-108) mmHg ABG HCO3 (21-25) mmol/L ABG O2 Saturation (94-97) % VBG pH 7.21 L (7.31-7.41) VBG pCO2 61 H (37-51) mmHg Sodium (137-145) mmol/L Carbon Dioxide (22-30) mmol/L BUN (9-20) mg/dL Creatinine (0.66-1.25) mg/dL Glucose (74-99) mg/dL POC Glucose (mg/dL) (70-110) mg/dL Plasma Lactic Acid Rhett 7.0 H* (0.7-2.0) mmol/L AST (17-59) U/L Urine Protein 1+ H (Negative) Urine Ketones 2+ H (Negative) Urine Blood Moderate H (Negative) Hyaline Casts 23 H (0-2) /lpf Urine Mucus Few H (None) /hpf 08/16/24 08/16/24 08/17/24 Range/Units 20:53 21:04 04:17 WBC 17.58 H (4.50-10.00) 10*3/uL RBC 4.39 L (4.40-5.60) 10*6/uL MCH (27.0-32.0) pg MPV 9.0 L (9.5-12.2) fL Immature Gran # 0.05 H (0.00-0.04) 10*3/uL Neutrophils # 15.06 H (1.80-7.70) 10*3/uL Monocytes # 1.19 H (0.20-1.00) 10*3/uL Eosinophils # 0.00 L (0.04-0.35) 10*3/uL ABG pCO2 (35-45) mmHg ABG pO2 (83-108) mmHg ABG HCO3 (21-25) mmol/L ABG O2 Saturation (94-97) % VBG pH (7.31-7.41) VBG pCO2 (37-51) mmHg Sodium (137-145) mmol/L Carbon Dioxide (22-30) mmol/L BUN (9-20) mg/dL Creatinine (0.66-1.25) mg/dL Glucose (74-99) mg/dL POC Glucose (mg/dL) 129 H (70-110) mg/dL Plasma Lactic Acid Rhett 5.2 H* (0.7-2.0) mmol/L AST (17-59) U/L Urine Protein (Negative) Urine Ketones (Negative) Urine Blood (Negative) Hyaline Casts (0-2) /lpf Urine Mucus (None) /hpf 08/17/24 08/17/24 Range/Units 04:17 04:59 WBC (4.50-10.00) 10*3/uL RBC (4.40-5.60) 10*6/uL MCH (27.0-32.0) pg MPV (9.5-12.2) fL Immature Gran # (0.00-0.04) 10*3/uL Neutrophils # (1.80-7.70) 10*3/uL Monocytes # (0.20-1.00) 10*3/uL Eosinophils # (0.04-0.35) 10*3/uL ABG pCO2 29 L (35-45) mmHg ABG pO2 158 H (83-108) mmHg ABG HCO3 19 L (21-25) mmol/L ABG O2 Saturation 99.8 H (94-97) % VBG pH (7.31-7.41) VBG pCO2 (37-51) mmHg Sodium 132 L (137-145) mmol/L Carbon Dioxide 16 L (22-30) mmol/L BUN 2 L (9-20) mg/dL Creatinine <0.15 L (0.66-1.25) mg/dL Glucose (74-99) mg/dL POC Glucose (mg/dL) (70-110) mg/dL Plasma Lactic Acid Rhett (0.7-2.0) mmol/L AST (17-59) U/L Urine Protein (Negative) Urine Ketones (Negative) Urine Blood (Negative) Hyaline Casts (0-2) /lpf Urine Mucus (None) /hpf Thrombosis Risk Factor Assmnt - Choose All That Apply Any of the Below Risk Factors Present?: Yes Each Factor Represents 1 point: Medical pt on bed rest Other Risk Factors: Yes Each Risk Factor Represents 2 Points: Patient confined to bed Other congenital or acquired thrombophilia - If yes, enter type in comment: No Thrombosis Risk Factor Assessment Total Risk Factor Score: 3 Thrombosis Risk Factor Assessment Level: Moderate Risk
[2024-08-17] MEDS: SODIUM CHLORIDE 0.9% 500 ML 500 ML IV ONE ×2 (13:50→18:45)
[2024-08-17] MEDS: atenoloL 25 MG TAB PO STA (14:14)
[2024-08-17 17:50] LABS: Glucose,Whole Blood 63 mg/dL (70-110)
[2024-08-17] MEDS: DEXTROSE 5%-0.45% NACL 1,000 ML IV SCH (18:04)
[2024-08-17 18:15] LABS: Glucose,Whole Blood 120 mg/dL (70-110)
[2024-08-17 18:33] LABS: ABG Base Excess -5.9 mmol/L; ABG HCO3 19 mmol/L (21-25); ABG Oxygen Saturation 96.6 % (94-97); ABG PCO2 35 mmHg (35-45); ABG PH 7.35 (7.35-7.45); ABG PO2 82 mmHg (83-108); ABG TCO2 20 mmol/L (19-24)
[2024-08-17 18:36] LABS: Allen Test Performed? no
[2024-08-17] MEDS: HYDROmorphone 1 MG/ML 1 ML SYRINGE IVP PRN (18:45)
[2024-08-17] MEDS: atenoloL 50 MG TAB PO SCH (20:19)
[2024-08-18 00:51] LABS: Glucose,Whole Blood 134 mg/dL (70-110)
[2024-08-18 04:45] LABS: Basophils # (A) 0.03 10*3/uL (0.00-0.10); Basophils % (A) 0.2 %; Eosinophils # (A) 0.03 10*3/uL (0.04-0.35); Eosinophils % (A) 0.2 %; HCT 33.3 % (39.6-50.0); HGB 11.9 g/dL (13.0-17.0); Lymphocytes # (A) 1.72 10*3/uL (0.90-5.00); Lymphocytes % (A) 12.4 %; MCH 32.2 pg (27.0-32.0); MCHC 35.7 g/dL (32.0-37.0); Monocytes # (A) 0.83 10*3/uL (0.20-1.00); Neutrophils # (A) 11.22 10*3/uL (1.80-7.70); Neutrophils % (A) 80.8 %; Platelet Count 252 10*3/uL (140-440); RDW 12.4 % (11.5-14.5); WBC 13.88 10*3/uL (4.50-10.00)
[2024-08-18 04:57] LABS: Anion Gap 8 mmol/L; Blood Urea Nitrogen <2 mg/dL (9-20); Calcium 8.2 mg/dL (8.4-10.2); Carbon Dioxide 21 mmol/L (22-30); Chloride 104 mmol/L (98-107); Glucose 129 mg/dL (74-99); Sodium 133 mmol/L (137-145)
[2024-08-18 05:06] LABS: African American GFR (CKD) >90 (>60 ml/min/1.73 sqM); Non-African American GFR(CKD) >90 (>60 ml/min/1.73 sqM); Potassium 2.1 mmol/L (3.5-5.1)
[2024-08-18 05:23] LABS: ABG Base Excess -0.6 mmol/L; ABG HCO3 23 mmol/L (21-25); ABG Oxygen Saturation 99.3 % (94-97); ABG PCO2 32 mmHg (35-45); ABG PH 7.46 (7.35-7.45); ABG PO2 115 mmHg (83-108); ABG TCO2 24 mmol/L (19-24)
[2024-08-18 06:02] LABS: Allen Test Performed? No
[2024-08-18] MEDS: POTASSIUM BICARBONATE/CIT AC 20 MEQ TABLET.EFF NG-TUBE SCH ×3 (06:53→20:24)
[2024-08-18 06:59] LABS: Glucose,Whole Blood 141 mg/dL (70-110)
--- NOTE | 2024-08-18 07:27 | XR ---
EXAMINATION TYPE: XR chest 1V portable DATE OF EXAM: 08/18/2024 5:25 AM COMPARISON: 08/17/2024 CLINICAL INDICATION: Male, 24 years old with history of Tube placement, , FINDINGS: Severe levoconvex scoliosis with secondary thoracic deformity. ET tube tip estimated 1.7 cm from the meir. NG tube courses below the diaphragm. Heart margins better seen now. There is improving aerati on particularly on the left with persistent hazy density filling most of the right side of the chest. IMPRESSION: 1. Severe thoracic deformity secondary to underlying scoliosis limiting the evaluation. Improving aer ation on the left. Hazy density filling most of the right side of the chest suspected pleural effusio n with underlying atelectasis and/or consolidation relatively similar. 2. ET tube tip estimated 1.7 cm from the meir. Attention on follow-up. [facility], , 08/18/2024 7:25 AM
--- NOTE | 2024-08-18 10:55 | P.PN ---
Subjective Progress Note Date: 08/18/24 This is a 25-year-old white male known history of Duchenne muscular dystrophy, wheelchair-bound, nonambulatory, brought in last night to the emergency room, shortly after he had a cough episode, and patient had difficulty clearing his secretions according to his parents. Patient was noted to be gasping for air, then he was moved to his wheelchair and he started developing more gasping episodes. Then the patient went blue and unresponsive. EMS was brought in started CPR on the patient for about 5 minutes. Shortly after patient was noted to have return of spontaneous circulation, he was responsive, however he was still having difficulty breathing. Patient was Ambu bag and brought into the ER. Upon arrival, patient was intubated and mechanically ventilated. According to family the patient was not sick recently, he had no fever, no chills, and no sick contacts. No history of pulmonary embolism or DVT. Patient had extensive workup in the ER including a chest x-ray, CT angiogram of the chest, and CT of abdomen. CT angiogram of the chest showed no evidence of pulmonary embolism there was evidence however of small pneumomediastinum endotracheal tube was noted to be in proper positions. There was evidence of secretions within the right lower lobe and right middle lobe and atelectasis of the right middle lobe. No evidence of intra-abdominal process noted. And it confirmed orogastric tube in the stomach. Patient was placed empirically on antibiotics, I was notified about this patient, and I accepted the patient to be admitted to the ICU. Saw the patient today, he is on assist-control rate of 22 tidal volume 350 FiO2 was 50% and I cut it down to 40% PEEP of 5. ABG earlier today at 60% showed a pO2 of 158 pCO2 29 pH of 7.42. Patient is on propofol at 45 mcg/kg/min he is also on LR at 100 cc/h patient is normally on atenolol and he had a scopolamine patch applied because of excessive secretions through the endotracheal tube. Antibiotics chase patient is on Rocephin and Zithromax. Chest x-ray today is a very poor quality especially with his body habitus cannot tell much based on chest x-ray findings. Extremely suboptimal chest x-ray. I was about to consider weaning and extubation of this patient, however I noted that the patient had leukocytosis with WBC of 17.5, his electrolytes are reflecting anion gap metabolic acidosis with bicarb of 16 and anion gap of 17. Lactic acid was normal electrolytes were relatively unremarkable except for slightly low sodium and potassium, hence I will hold back on weaning today, the plan is to continue antibiotics, continue suctioning of secretions, and weaning to be addressed in the next 24 hours. I believe it is a bit too early to wean and extubate this patient at this point yet. 08/18/2024 patient seen and examined at bedside. Patient seen in the ICU intubated, sedated and on mechanical ventilation. No acute events overnight. Current ventilator settings volume control with a rate of 22, tidal volume 350, FiO2 40% and a PEEP of 5. Chest x-ray today showed severe thoracic deformity secondary to underlying scoliosis, improving aeration of the left, hazy density filling most of the right side suspected pleural effusion with underlying atelectasis and/or consolidation, ET tube estimated 1.7 to from the meir. Current drips propofol 50 mcg/kg/min, [id number] saline running at 100 cc/h. Currently on empiric antibiotics with ceftriaxone IVPB. Labs today: WBC 13.8, hemoglobin 11.9, platelet count 252,000, sodium 133, potassium 2.1, bicarb 21, BUN to creatinine less than 0.15, glucose 129, calcium 8.2. ABG showed pH 7.48, PCO2 23, PO2 115 Review of systems: Unable to obtain at this time. Physical examination: Vital signs reviewed General: non toxic, no distress, sedated, intubated and on mechanical ventilation Derm: no unusual rashes/lesions, warm Head: atraumatic, normocephalic, symmetric Eyes: EOMI, anicteric sclera, pupils equal round reactive to light ENT: Nose and ears atraumatic Neck: No cervical lymphadenopathy, trachea midline, supple Mouth: no lip lesion, mucus membranes moist, ET and OG tube noted Cardiovascular: S1S2 tachycardic, no murmur Lungs: diffuse corse rales, no accessory muscle use Abdominal: soft, nontender to palpation, no guarding Ext: muscle strength 5 out of 5 in all 4 extremities grossly, notable muscle atrophy and contractures, positive dorsalis pedis pulse bilateral, no edema Neuro: CN II-XI grossly intact, no gross focal neuro deficits Psych: Alert and oriented x3, appropriate affect and mood Assessment: Acute hypoxic respiratory failure most likely secondary to mucous plugging Right lower lobe and right middle lobe atelectasis, possible pneumonia considering leukocytosis and metabolic acidosis Sepsis secondary to above Brief cardiac arrest secondary to above Hypokalemia, severe History of Duchenne muscular dystrophy Chronic sinus tachycardia maintained on atenolol Seasonal allergic rhinitis Benign essential hypertension Recommendation: Continue ventilatory support. Decrease FiO2 to 30% Daily interruption of sedation Spontaneous breathing trial today Continue bronchodilators with DuoNeb Continue antibiotics. Currently on ceftriaxone 1 g IVPB day 3 Continue with potassium replacement protocol. Given 60mEq potassium citrate. to recheck potassium to reevaluate Continue IVF D5-1/2 NS 100cc/hr until end of day Currently on home atenolol 50mg twice daily Check sputum cultures pending Continue suctioning of tracheal secretions Continue enteral feeding to goal rate DVT prophylaxis: Lovenox 40 mg subcu daily GI prophylaxis: Protonix 40 mg IVPB daily Prognosis: Discussed and reviewed with family at bedside his overall condition prognosis and aware of attempt for DIS and SBT Will continue to follow Patient is critically ill and has significant comorbidities which may hinder the process of weaning and extubation successfully. Princess Finley MD PGY-1/Senior Sales Associate Dictation was produced using [employer] dictation software. please excuse any grammatical, word or spelling errors. Objective - Vital Signs Vital signs: Vital Signs Temp 99.8 F H 08/18/24 04:00 Pulse 115 H 08/18/24 07:00 Resp 22 08/18/24 07:00 BP 112/69 08/18/24 07:00 Pulse Ox 98 08/18/24 07:00 FiO2 40 08/18/24 04:04 Intake & Output 08/17/24 08/18/24 08/18/24 18:59 06:59 18:59 Intake Total 7784.422 5774.28 113 Output Total 920 890 100 Balance 995.676 772.28 13 Weight 69.6 kg Intake: IV 1666 1236 103 Dextrose 5%-0.45% NaCl 1, 1200 100 000 ml @ 100 mls/hr IV . Q10H [facility] Rx#:[id number] Lactated Ringers 1,000 ml 630 @ 100 mls/hr IV .Q10H [facility] Rx#:[id number] Pressure Bag 36 36 3 Sodium Chloride 0.9% 500 1000 ml 500 ml @ 999 mls/hr IV .Q31M [facility] Rx#:[id number] Intake, IV Titration 159.676 216.28 Amount propofoL 1,000 mg In 159.676 216.28 Empty Bag 1 bag @ 15 MCG/ KG/MIN 6.12 mls/hr IV . [id number] [facility] Rx#:[id number] Tube Feeding 60 120 10 Other 30 90 Output: Urine 920 890 100 Other: Voiding Method Indwelling Catheter Indwelling Catheter ABP, PAP, CO, CI - Last Documented Arterial Blood Pressure 135/79 - Labs CBC & Chem 7: 08/18/24 04:37 08/18/24 04:37 Labs: Abnormal Lab Results - Last 24 Hours (Table) 08/17/24 08/17/24 08/17/24 Range/Units 04:17 12:10 17:49 WBC (4.50-10.00) 10*3/uL RBC (4.40-5.60) 10*6/uL Hgb (13.0-17.0) g/dL Hct (39.6-50.0) % MCH (27.0-32.0) pg MPV (9.5-12.2) fL Immature Gran # (0.00-0.04) 10*3/uL Neutrophils # (1.80-7.70) 10*3/uL Eosinophils # (0.04-0.35) 10*3/uL ABG pH (7.35-7.45) ABG pCO2 (35-45) mmHg ABG pO2 (83-108) mmHg ABG HCO3 (21-25) mmol/L ABG O2 Saturation (94-97) % Hemoglobin (13.0-17.5) gm/dL Sodium (137-145) mmol/L Potassium (3.5-5.1) mmol/L Carbon Dioxide (22-30) mmol/L BUN (9-20) mg/dL Creatinine (0.66-1.25) mg/dL Glucose (74-99) mg/dL POC Glucose (mg/dL) 58 L 63 L (70-110) mg/dL Calcium (8.4-10.2) mg/dL Procalcitonin 0.53 H (0.02-0.50) ng/mL 0508/17/24 08/18/24 Range/Units 18:12 18:28 00:50 WBC (4.50-10.00) 10*3/uL RBC (4.40-5.60) 10*6/uL Hgb (13.0-17.0) g/dL Hct (39.6-50.0) % MCH (27.0-32.0) pg MPV (9.5-12.2) fL Immature Gran # (0.00-0.04) 10*3/uL Neutrophils # (1.80-7.70) 10*3/uL Eosinophils # (0.04-0.35) 10*3/uL ABG pH (7.35-7.45) ABG pCO2 (35-45) mmHg ABG pO2 82 L (83-108) mmHg ABG HCO3 19 L (21-25) mmol/L ABG O2 Saturation (94-97) % Hemoglobin 12.4 L (13.0-17.5) gm/dL Sodium (137-145) mmol/L Potassium (3.5-5.1) mmol/L Carbon Dioxide (22-30) mmol/L BUN (9-20) mg/dL Creatinine (0.66-1.25) mg/dL Glucose (74-99) mg/dL POC Glucose (mg/dL) 120 H 134 H (70-110) mg/dL Calcium (8.4-10.2) mg/dL Procalcitonin (0.02-0.50) ng/mL 08/18/24 08/18/24 08/18/24 Range/Units 04:37 04:37 05:15 WBC 13.88 H (4.50-10.00) 10*3/uL RBC 3.70 L (4.40-5.60) 10*6/uL Hgb 11.9 L (13.0-17.0) g/dL Hct 33.3 L (39.6-50.0) % MCH 32.2 H (27.0-32.0) pg MPV 9.0 L (9.5-12.2) fL Immature Gran # 0.05 H (0.00-0.04) 10*3/uL Neutrophils # 11.22 H (1.80-7.70) 10*3/uL Eosinophils # 0.03 L (0.04-0.35) 10*3/uL ABG pH 7.46 H (7.35-7.45) ABG pCO2 32 L (35-45) mmHg ABG pO2 115 H (83-108) mmHg ABG HCO3 (21-25) mmol/L ABG O2 Saturation 99.3 H (94-97) % Hemoglobin 12.4 L (13.0-17.5) gm/dL Sodium 133 L (137-145) mmol/L Potassium 2.1 L* (3.5-5.1) mmol/L Carbon Dioxide 21 L (22-30) mmol/L BUN <2 L (9-20) mg/dL Creatinine <0.15 L (0.66-1.25) mg/dL Glucose 129 H (74-99) mg/dL POC Glucose (mg/dL) (70-110) mg/dL Calcium 8.2 L (8.4-10.2) mg/dL Procalcitonin (0.02-0.50) ng/mL 08/18/24 Range/Units 06:59 WBC (4.50-10.00) 10*3/uL RBC (4.40-5.60) 10*6/uL Hgb (13.0-17.0) g/dL Hct (39.6-50.0) % MCH (27.0-32.0) pg MPV (9.5-12.2) fL Immature Gran # (0.00-0.04) 10*3/uL Neutrophils # (1.80-7.70) 10*3/uL Eosinophils # (0.04-0.35) 10*3/uL ABG pH (7.35-7.45) ABG pCO2 (35-45) mmHg ABG pO2 (83-108) mmHg ABG HCO3 (21-25) mmol/L ABG O2 Saturation (94-97) % Hemoglobin (13.0-17.5) gm/dL Sodium (137-145) mmol/L Potassium (3.5-5.1) mmol/L Carbon Dioxide (22-30) mmol/L BUN (9-20) mg/dL Creatinine (0.66-1.25) mg/dL Glucose (74-99) mg/dL POC Glucose (mg/dL) 141 H (70-110) mg/dL Calcium (8.4-10.2) mg/dL Procalcitonin (0.02-0.50) ng/mL Microbiology - Last 24 Hours (Table) 08/17/24 06:01 Gram Stain - Preliminary Sputum
[2024-08-18 11:40] LABS: Glucose,Whole Blood 129 mg/dL (70-110)
[2024-08-18 18:30] LABS: Glucose,Whole Blood 124 mg/dL (70-110)
[2024-08-18] MEDS: SCOPOLAMINE 1 MG/72 HR PATCH TRANSDERM SCH (19:30)
[2024-08-18 23:56] LABS: Glucose,Whole Blood 106 mg/dL (70-110)
[2024-08-19 05:19] LABS: ABG Base Excess 4.1 mmol/L; ABG HCO3 27 mmol/L (21-25); ABG Oxygen Saturation 98.2 % (94-97); ABG PCO2 33 mmHg (35-45); ABG PH 7.52 (7.35-7.45); ABG PO2 83 mmHg (83-108); ABG TCO2 28 mmol/L (19-24); Allen Test Performed? Yes
[2024-08-19 06:19] LABS: Basophils # (A) 0.02 10*3/uL (0.00-0.10); Basophils % (A) 0.2 %; Eosinophils # (A) 0.15 10*3/uL (0.04-0.35); Eosinophils % (A) 1.4 %; HCT 33.9 % (39.6-50.0); HGB 11.8 g/dL (13.0-17.0); Lymphocytes # (A) 1.62 10*3/uL (0.90-5.00); Lymphocytes % (A) 15.6 %; MCH 32.1 pg (27.0-32.0); MCHC 34.8 g/dL (32.0-37.0); MCV 92.1 fL (80.0-97.0); Mean Platelet Volume 9.9 fL (9.5-12.2); Monocytes # (A) 0.81 10*3/uL (0.20-1.00); Monocytes % (A) 7.8 %; Neutrophils # (A) 7.75 10*3/uL (1.80-7.70); Neutrophils % (A) 74.7 %; Platelet Count 253 10*3/uL (140-440); RBC 3.68 10*6/uL (4.40-5.60); RDW 12.8 % (11.5-14.5); WBC 10.38 10*3/uL (4.50-10.00)
[2024-08-19 06:39] LABS: Anion Gap 8 mmol/L; Blood Urea Nitrogen 4 mg/dL (9-20); Calcium 8.1 mg/dL (8.4-10.2); Carbon Dioxide 22 mmol/L (22-30); Chloride 107 mmol/L (98-107); Glucose 99 mg/dL (74-99); Sodium 137 mmol/L (137-145)
[2024-08-19 06:40] LABS: African American GFR (CKD) >90 (>60 ml/min/1.73 sqM); Non-African American GFR(CKD) >90 (>60 ml/min/1.73 sqM); Potassium 4.1 mmol/L (3.5-5.1)
[2024-08-19] MEDS: ATROPINE OPHTH SOLN 1% 5ML BTL SUBLINGUAL PRN (07:13)
--- NOTE | 2024-08-19 07:33 | XR ---
EXAMINATION TYPE: XR chest 1V portable DATE OF EXAM: 08/19/2024 5:25 AM COMPARISON: 08/18/2024 CLINICAL INDICATION: Male, 24 years old with history of Tube placement, , FINDINGS: Severe levoconvex scoliosis with secondary thoracic deformity, severe kyphotic positioning, and patie nt's chin down severely limits the exam. Unable to adequately identify the ET tube. NG tube courses b elow the diaphragm. The sidehole may be above the GE junction level. May need to be advanced by 5 cm. Left heart margin entirely obscured by overlying spine and adjacent pleural parenchymal opacities. A small portion of the right apex and crowded left lung are seen aerated. Suspect underlying sizable r ight pleural effusion. IMPRESSION: 1. Severely limited exam due to combination of thoracic deformity, positioning, and chin down. Unable to visualize the ET tube. 2. The NG tube may need to be advanced by 5 cm so that the side hole enters the stomach. 3. Suspect an underlying sizable right pleural effusion with adjacent atelectasis and/or consolidatio n. [facility], , 08/19/2024 7:31 AM
[2024-08-19] MEDS: DEXTROSE 5%-0.45% NACL 1,000 ML IV SCH (08:38)
--- NOTE | 2024-08-19 10:49 | P.PN ---
Subjective Progress Note Date: 08/19/24 This is a 25-year-old white male known history of Duchenne muscular dystrophy, wheelchair-bound, nonambulatory, brought in last night to the emergency room, shortly after he had a cough episode, and patient had difficulty clearing his secretions according to his parents. Patient was noted to be gasping for air, then he was moved to his wheelchair and he started developing more gasping episodes. Then the patient went blue and unresponsive. EMS was brought in started CPR on the patient for about 5 minutes. Shortly after patient was noted to have return of spontaneous circulation, he was responsive, however he was still having difficulty breathing. Patient was Ambu bag and brought into the ER. Upon arrival, patient was intubated and mechanically ventilated. According to family the patient was not sick recently, he had no fever, no chills, and no sick contacts. No history of pulmonary embolism or DVT. Patient had extensive workup in the ER including a chest x-ray, CT angiogram of the chest, and CT of abdomen. CT angiogram of the chest showed no evidence of pulmonary embolism there was evidence however of small pneumomediastinum endotracheal tube was noted to be in proper positions. There was evidence of secretions within the right lower lobe and right middle lobe and atelectasis of the right middle lobe. No evidence of intra-abdominal process noted. And it confirmed orogastric tube in the stomach. Patient was placed empirically on antibiotics, I was notified about this patient, and I accepted the patient to be admitted to the ICU. Saw the patient today, he is on assist-control rate of 22 tidal volume 350 FiO2 was 50% and I cut it down to 40% PEEP of 5. ABG earlier today at 60% showed a pO2 of 158 pCO2 29 pH of 7.42. Patient is on propofol at 45 mcg/kg/min he is also on LR at 100 cc/h patient is normally on atenolol and he had a scopolamine patch applied because of excessive secretions through the endotracheal tube. Antibiotics chase patient is on Rocephin and Zithromax. Chest x-ray today is a very poor quality especially with his body habitus cannot tell much based on chest x-ray findings. Extremely suboptimal chest x-ray. I was about to consider weaning and extubation of this patient, however I noted that the patient had leukocytosis with WBC of 17.5, his electrolytes are reflecting anion gap metabolic acidosis with bicarb of 16 and anion gap of 17. Lactic acid was normal electrolytes were relatively unremarkable except for slightly low sodium and potassium, hence I will hold back on weaning today, the plan is to continue antibiotics, continue suctioning of secretions, and weaning to be addressed in the next 24 hours. I believe it is a bit too early to wean and extubate this patient at this point yet. 08/18/2024 patient seen and examined at bedside. Patient seen in the ICU intubated, sedated and on mechanical ventilation. No acute events overnight. Current ventilator settings volume control with a rate of 22, tidal volume 350, FiO2 40% and a PEEP of 5. Chest x-ray today showed severe thoracic deformity secondary to underlying scoliosis, improving aeration of the left, hazy density filling most of the right side suspected pleural effusion with underlying atelectasis and/or consolidation, ET tube estimated 1.7 to from the meir. Current drips propofol 50 mcg/kg/min, [id number] saline running at 100 cc/h. Currently on empiric antibiotics with ceftriaxone IVPB. Labs today: WBC 13.8, hemoglobin 11.9, platelet count 252,000, sodium 133, potassium 2.1, bicarb 21, BUN to creatinine less than 0.15, glucose 129, calcium 8.2. ABG showed pH 7.48, PCO2 23, PO2 115 08/19/2024 patient seen and examined at bedside in the ICU. Still currently intubated, sedated and on mechanical ventilation. No acute events overnight. Attempted SBT yesterday failed as patient became tachycardic, higher respiratory rate, NIF -6 and low tidal volumes during the trial. Current ventilator settings volume control with a rate of 22, tidal volume 350, FiO2 30% and a PEEP of 5. Current drips propofol 40 mcg/kg/min, [id number] saline running at 100 cc/h. Tube feeds at 40mL/hr. Currently on empiric antibiotics with ceftriaxone IVPB. Labs: WBC 10.3, hemoglobin 11.8, platelet count 253,000, sodium 137, potassium 4.1, bicarb 22, calcium 8.1, BUN 4, creatinine 0.15, glucose 99. ABG showed PO2 83, pCO2 33, pH 7.52, FiO2 30% Imaging; chest x-ray today showed stable aeration of the right and left lungs despite limited visualization due to patient's anatomy Review of systems: Unable to obtain at this time. Physical examination: Vital signs reviewed General: non toxic, no distress, sedated, intubated and on mechanical ventilation Derm: no unusual rashes/lesions, warm Head: atraumatic, normocephalic, symmetric Eyes: EOMI, anicteric sclera, pupils equal round reactive to light ENT: Nose and ears atraumatic Neck: No cervical lymphadenopathy, trachea midline, supple Mouth: no lip lesion, mucus membranes moist, ET and OG tube noted Cardiovascular: S1S2 tachycardic, no murmur Lungs: diffuse corse rales, no accessory muscle use Abdominal: soft, nontender to palpation, no guarding Ext: muscle strength 5 out of 5 in all 4 extremities grossly, notable muscle atrophy and contractures, positive dorsalis pedis pulse bilateral, no edema Neuro: CN II-XI grossly intact, no gross focal neuro deficits Psych: Alert and oriented x3, appropriate affect and mood Assessment: Acute hypoxic respiratory failure most likely secondary to mucous plugging Right lower lobe and right middle lobe atelectasis, possible pneumonia considering leukocytosis and metabolic acidosis Sepsis secondary to above, improving Brief cardiac arrest secondary to above Severe Hypokalemia, resolved History of Duchenne muscular dystrophy Chronic sinus tachycardia maintained on atenolol Seasonal allergic rhinitis Benign essential hypertension Recommendation: Continue ventilatory support. Daily interruption of sedation Spontaneous breathing trial today Continue bronchodilators with DuoNeb Continue antibiotics. Currently on ceftriaxone 1 g IVPB day 4 Continue IVF D5-1/2 NS 100cc/hr Currently on home atenolol 50mg twice daily Check sputum cultures pending. Preliminary inconclusive so far. Continue suctioning of tracheal secretions Continue enteral feeding to goal rate Consider bronchoscopy if secretions become a concern during SBT DVT prophylaxis: Lovenox 40 mg subcu daily GI prophylaxis: Protonix 40 mg IVPB daily Prognosis: Discussed and reviewed with family at bedside his overall condition prognosis and aware of attempt for DIS and SBT Will continue to follow Patient is critically ill and has significant comorbidities which may hinder the process of weaning and extubation successfully. Princess Finley MD PGY-1/Commercial Sales Consultant Dictation was produced using [employer] dictation software. please excuse any grammatical, word or spelling errors. Objective - Vital Signs Vital signs: Vital Signs Temp 99.2 F 05/06/25 04:00 Pulse 116 H 08/19/24 07:00 Resp 22 08/19/24 07:00 BP 96/48 08/19/24 07:00 Pulse Ox 97 08/19/24 07:00 FiO2 30 08/19/24 04:57 Intake & Output 08/18/24 08/19/24 08/19/24 18:59 06:59 18:59 Intake Total 1667.77 1147.60 33 Output Total 1200 1225 50 Balance 467.77 -77.40 -17 Weight 69.6 kg 74.9 kg Intake: IV 1236 536 3 Dextrose 5%-0.45% NaCl 1, 1200 500 000 ml @ 100 mls/hr IV . Q10H [facility] Rx#:[id number] Pressure Bag 36 36 3 Intake, IV Titration 81.77 181.60 Amount propofoL 1,000 mg In 81.77 181.60 Empty Bag 1 bag @ 15 MCG/ KG/MIN 6.12 mls/hr IV . [id number] [facility] Rx#:[id number] Oral 150 Tube Feeding 200 340 30 Other 90 Output: Urine 1200 1225 50 Other: Voiding Method Indwelling Catheter Indwelling Catheter ABP, PAP, CO, CI - Last Documented Arterial Blood Pressure 66/40 - Labs CBC & Chem 7: 08/19/24 05:59 08/19/24 05:59 Labs: Abnormal Lab Results - Last 24 Hours (Table) 08/18/24 08/18/24 08/18/24 Range/Units 11:37 11:40 18:29 WBC (4.50-10.00) 10*3/uL RBC (4.40-5.60) 10*6/uL Hgb (13.0-17.0) g/dL Hct (39.6-50.0) % MCH (27.0-32.0) pg Neutrophils # (1.80-7.70) 10*3/uL ABG pH (7.35-7.45) ABG pCO2 (35-45) mmHg ABG HCO3 (21-25) mmol/L ABG Total CO2 (19-24) mmol/L ABG O2 Saturation (94-97) % Hemoglobin (13.0-17.5) gm/dL Potassium 3.4 L (3.5-5.1) mmol/L BUN (9-20) mg/dL Creatinine (0.66-1.25) mg/dL POC Glucose (mg/dL) 129 H 124 H (70-110) mg/dL Calcium (8.4-10.2) mg/dL 08/19/24 08/19/24 08/19/24 Range/Units 05:00 05:59 05:59 WBC 10.38 H (4.50-10.00) 10*3/uL RBC 3.68 L (4.40-5.60) 10*6/uL Hgb 11.8 L (13.0-17.0) g/dL Hct 33.9 L (39.6-50.0) % MCH 32.1 H (27.0-32.0) pg Neutrophils # 7.75 H (1.80-7.70) 10*3/uL ABG pH 7.52 H (7.35-7.45) ABG pCO2 33 L (35-45) mmHg ABG HCO3 27 H (21-25) mmol/L ABG Total CO2 28 H (19-24) mmol/L ABG O2 Saturation 98.2 H (94-97) % Hemoglobin 11.6 L (13.0-17.5) gm/dL Potassium (3.5-5.1) mmol/L BUN 4 L (9-20) mg/dL Creatinine <0.15 L (0.66-1.25) mg/dL POC Glucose (mg/dL) (70-110) mg/dL Calcium 8.1 L (8.4-10.2) mg/dL Microbiology - Last 24 Hours (Table) 08/17/24 06:01 Gram Stain - Preliminary Sputum Sputum Culture - Preliminary
--- NOTE | 2024-08-19 11:27 | XR ---
EXAMINATION TYPE: XR chest 1V portable DATE OF EXAM: 08/19/2024 11:11 AM COMPARISON: 08/19/2024 CLINICAL INDICATION: Male, 24 years old with history of og replaced, , FINDINGS: Severe S-shaped scoliotic deformity. NG tube courses below the diaphragm. Obscuration of the heart ma rgins with perihilar and mid and lower lung opacities. Only small portions of the upper lungs are aer ated. IMPRESSION: 1. Exam remains severely limited. OG tube courses below the diaphragm. 2. Only small portion of the right upper lung remains aerated and some portions of the left lung. Ext ensive bilateral opacities persist. [facility], Workstation: [id number], 08/19/2024 11:25 AM
[2024-08-19 12:04] LABS: Glucose,Whole Blood 112 mg/dL (70-110)
[2024-08-19 17:23] LABS: Glucose,Whole Blood 105 mg/dL (70-110)
[2024-08-19] MEDS: VITS A & D-WHITE PET-LANOLIN TUBE TOPICAL SCH (20:06)
--- NOTE | 2024-08-19 21:52 | P.PN ---
Subjective Progress Note Date: 08/18/24 History of present illness; patient is a 24-year-old gentleman with past medical history significant for Duchenne muscular dystrophy who presents the ER from home for respiratory distress. Apparently patient was all right yesterday morning when while at home patient starting having cough and started having shortness of breath. Patient started gasping for air, patient went unresponsive, patient family started CPR and EMS was called. Patient had CPR for approximately 5 minutes. EMS arrived at the spot and bagged en route to the hospital. In the ER, patient was continued to have respiratory distress and was intubated Initial lab work done in the ER showed WBC 7.01, hemoglobin 14.2, platelet count 413 sodium 138, potassium 3.7, chloride 99, BUN 9, creatinine 0.19, glucose 215, lactate 7, AST 61, troponin 0.034 UA done showed no infection EKG done in the ER showed heart rate of , no ST segment elevation or depression seen, no T-wave inversions seen. Chest x-ray done in the ER showed endotracheal tube in the left main bronchus, retraction recommended of 2 to 3 cm. gaseous distention of bowel and stomach CT chest PE protocol done showed no evidence of PE, no evidence of bowel obstruction. Secretions in the right lower lobe and right middle lobe airways with atelectasis of the right middle lobe Patient admitted to internal medicine service 08/18/2024 Patient is in the ICU. Intubated and sedated and on mechanical ventilator. Assist-control with respiratory rate 22, tidal volume 350 FiO2 40% and PEEP of 5. Chest x-ray showed severe thoracic deformity secondary to underlying scolio sis limiting the evaluation. Improving aeration on the left. Hazy density feeling most of the right side of the chest suspected pleural effusion with underlying atelectasis and/or consolidation likely similar. Patient had antibiotic ceftriaxone. Also on IV hydration with D5 normal saline at 100 cc/h. Laboratory data showed WBC 13.8 hemoglobin 11.9 and platelets 252 sodium 133 potassium 2.1 chloride 104 bicarb is 21 BUN less than 20 creatinine 0.15 and blood sugar 129 and calcium 8.2. Critical care team on board. Current medications reviewed. REVIEW OF SYSTEMS: Review of system cannot be obtained as patient currently intubated PHYSICAL EXAMINATION: GENERAL: The patient is intubated HEENT: Pupils are round and equally reacting to light. EOMI. No scleral icterus. No conjunctival pallor. Normocephalic, atraumatic. No pharyngeal erythema. No thyromegaly. CARDIOVASCULAR: S1 and S2 present. No murmurs, rubs, or gallops. PULMONARY: Coarse breath sound bilaterally, diminished at the bases ABDOMEN: Soft, nontender, nondistended, normoactive bowel sounds. No palpable organomegaly. MUSCULOSKELETAL: No joint swelling or deformity. EXTREMITIES: No cyanosis, clubbing, or pedal edema. NEUROLOGICAL: Intubated SKIN: No rashes. Assessment and plan Acute hypoxic respiratory failure likely secondary to right bronchial mucous plugging Possible bacterial pneumonia Sepsis secondary to above Status post brief cardiac arrest Lactic acidosis. Improved History of Duchenne's muscle dystrophy Chronic sinus tachycardia maintained on atenolol Seasonal allergic rhinitis Benign essential hypertension Monitor vital signs Monitor CBC Monitor CMP Continue telemetry monitoring Serial ABGs Continue vent management Serial chest x-rays Ordered breathing treatment Continue IV Rocephin Procalcitonin 0.53 Critical care team is on board. Labs and medication were reviewed.. Monitor labs and vitals. DVT and GI prophylaxis. Dictation was produced using [employer] dictation software. please excuse any grammatical, word or spelling errors. Objective - Vital Signs Vital signs: Vital Signs Temp 100.5 F H 08/18/24 08:00 Pulse 125 H 08/18/24 10:00 Resp 20 08/18/24 10:00 BP 98/66 08/18/24 10:00 Pulse Ox 98 08/18/24 10:00 FiO2 30 08/18/24 10:35 Intake & Output 08/17/24 08/18/24 08/18/24 18:59 06:59 18:59 Intake Total 4086.946 6924.28 583.77 Output Total 920 890 650 Balance 995.676 772.28 -66.23 Weight 69.6 kg Intake: IV 1666 1236 412 Dextrose 5%-0.45% NaCl 1, 1200 400 000 ml @ 100 mls/hr IV . Q10H [facility] Rx#:[id number] Lactated Ringers 1,000 ml 630 @ 100 mls/hr IV .Q10H [facility] Rx#:[id number] Pressure Bag 36 36 12 Sodium Chloride 0.9% 500 1000 ml 500 ml @ 999 mls/hr IV .Q31M ONE Rx#:[id number] Intake, IV Titration 159.676 216.28 81.77 Amount propofoL 1,000 mg In 159.676 216.28 81.77 Empty Bag 1 bag @ 15 MCG/ KG/MIN 6.12 mls/hr IV . [id number] [facility] Rx#:[id number] Oral 50 Tube Feeding 60 120 40 Other 30 90 Output: Urine 920 890 650 Other: Voiding Method Indwelling Catheter Indwelling Catheter ABP, PAP, CO, CI - Last Documented Arterial Blood Pressure 113/69 - Labs CBC & Chem 7: 08/20/24 05:47 08/20/24 19:54 Labs: Abnormal Lab Results - Last 24 Hours (Table) 08/17/24 08/17/24 08/17/24 Range/Units 04:17 12:10 17:49 WBC (4.50-10.00) 10*3/uL RBC (4.40-5.60) 10*6/uL Hgb (13.0-17.0) g/dL Hct (39.6-50.0) % MCH (27.0-32.0) pg MPV (9.5-12.2) fL Immature Gran # (0.00-0.04) 10*3/uL Neutrophils # (1.80-7.70) 10*3/uL Eosinophils # (0.04-0.35) 10*3/uL ABG pH (7.35-7.45) ABG pCO2 (35-45) mmHg ABG pO2 (83-108) mmHg ABG HCO3 (21-25) mmol/L ABG O2 Saturation (94-97) % Hemoglobin (13.0-17.5) gm/dL Sodium (137-145) mmol/L Potassium (3.5-5.1) mmol/L Carbon Dioxide (22-30) mmol/L BUN (9-20) mg/dL Creatinine (0.66-1.25) mg/dL Glucose (74-99) mg/dL POC Glucose (mg/dL) 58 L 63 L (70-110) mg/dL Calcium (8.4-10.2) mg/dL Procalcitonin 0.53 H (0.02-0.50) ng/mL 08/17/24 08/17/24 08/18/24 Range/Units 18:12 18:28 00:50 WBC (4.50-10.00) 10*3/uL RBC (4.40-5.60) 10*6/uL Hgb (13.0-17.0) g/dL Hct (39.6-50.0) % MCH (27.0-32.0) pg MPV (9.5-12.2) fL Immature Gran # (0.00-0.04) 10*3/uL Neutrophils # (1.80-7.70) 10*3/uL Eosinophils # (0.04-0.35) 10*3/uL ABG pH (7.35-7.45) ABG pCO2 (35-45) mmHg ABG pO2 82 L (83-108) mmHg ABG HCO3 19 L (21-25) mmol/L ABG O2 Saturation (94-97) % Hemoglobin 12.4 L (13.0-17.5) gm/dL Sodium (137-145) mmol/L Potassium (3.5-5.1) mmol/L Carbon Dioxide (22-30) mmol/L BUN (9-20) mg/dL Creatinine (0.66-1.25) mg/dL Glucose (74-99) mg/dL POC Glucose (mg/dL) 120 H 134 H (70-110) mg/dL Calcium (8.4-10.2) mg/dL Procalcitonin (0.02-0.50) ng/mL 08/18/24 08/18/24 08/18/24 Range/Units 04:37 04:37 05:15 WBC 13.88 H (4.50-10.00) 10*3/uL RBC 3.70 L (4.40-5.60) 10*6/uL Hgb 11.9 L (13.0-17.0) g/dL Hct 33.3 L (39.6-50.0) % MCH 32.2 H (27.0-32.0) pg MPV 9.0 L (9.5-12.2) fL Immature Gran # 0.05 H (0.00-0.04) 10*3/uL Neutrophils # 11.22 H (1.80-7.70) 10*3/uL Eosinophils # 0.03 L (0.04-0.35) 10*3/uL ABG pH 7.46 H (7.35-7.45) ABG pCO2 32 L (35-45) mmHg ABG pO2 115 H (83-108) mmHg ABG HCO3 (21-25) mmol/L ABG O2 Saturation 99.3 H (94-97) % Hemoglobin 12.4 L (13.0-17.5) gm/dL Sodium 133 L (137-145) mmol/L Potassium 2.1 L* (3.5-5.1) mmol/L Carbon Dioxide 21 L (22-30) mmol/L BUN <2 L (9-20) mg/dL Creatinine <0.15 L (0.66-1.25) mg/dL Glucose 129 H (74-99) mg/dL POC Glucose (mg/dL) (70-110) mg/dL Calcium 8.2 L (8.4-10.2) mg/dL Procalcitonin (0.02-0.50) ng/mL 08/18/24 08/18/24 Range/Units 06:59 11:37 WBC (4.50-10.00) 10*3/uL RBC (4.40-5.60) 10*6/uL Hgb (13.0-17.0) g/dL Hct (39.6-50.0) % MCH (27.0-32.0) pg MPV (9.5-12.2) fL Immature Gran # (0.00-0.04) 10*3/uL Neutrophils # (1.80-7.70) 10*3/uL Eosinophils # (0.04-0.35) 10*3/uL ABG pH (7.35-7.45) ABG pCO2 (35-45) mmHg ABG pO2 (83-108) mmHg ABG HCO3 (21-25) mmol/L ABG O2 Saturation (94-97) % Hemoglobin (13.0-17.5) gm/dL Sodium (137-145) mmol/L Potassium (3.5-5.1) mmol/L Carbon Dioxide (22-30) mmol/L BUN (9-20) mg/dL Creatinine (0.66-1.25) mg/dL Glucose (74-99) mg/dL POC Glucose (mg/dL) 141 H 129 H (70-110) mg/dL Calcium (8.4-10.2) mg/dL Procalcitonin (0.02-0.50) ng/mL Microbiology - Last 24 Hours (Table) 08/17/24 06:01 Gram Stain - Preliminary Sputum Sputum Culture - Preliminary
--- NOTE | 2024-08-19 22:35 | XR ---
EXAMINATION TYPE: XR chest 1V portable DATE OF EXAM: 08/19/2024 9:43 PM COMPARISON: None. CLINICAL INDICATION: Male, 24 years old with history of OG tube placement, TECHNIQUE: XR chest 1V portable view(s) obtained. FINDINGS: The heart size is normal. The pulmonary vasculature is normal. There is elevation of the right diaphragm. A right lower lobe infiltrate may be present. Endotracheal tube tip is above the emir. Nasogastric tube tip is within the left upper quadrant of the abdomen. IMPRESSION: 1. Elevation of the right diaphragm and/or right lower lobe infiltrate. 2. Nasogastric tube tip in the left upper quadrant abdomen. 3. Endotracheal tube tip 3.5 cm above the meir. [facility], Workstation: [facility], 08/19/2024 10:32 PM
[2024-08-19 23:14] LABS: Glucose,Whole Blood 117 mg/dL (70-110)
[2024-08-20 05:10] LABS: ABG Base Excess 3.5 mmol/L; ABG HCO3 25 mmol/L (21-25); ABG Oxygen Saturation >100.0 % (94-97); ABG PCO2 26 mmHg (35-45); ABG PO2 163 mmHg (83-108); ABG TCO2 25 mmol/L (19-24); Allen Test Performed? Yes
[2024-08-20 05:12] LABS: ABG PH 7.59 (7.35-7.45)
[2024-08-20 05:19] LABS: Glucose,Whole Blood 105 mg/dL (70-110)
[2024-08-20 06:35] LABS: Basophils # (A) 0.03 10*3/uL (0.00-0.10); Basophils % (A) 0.4 %; Eosinophils # (A) 0.25 10*3/uL (0.04-0.35); Eosinophils % (A) 3.2 %; HCT 30.4 % (39.6-50.0); HGB 10.2 g/dL (13.0-17.0); Lymphocytes # (A) 2.29 10*3/uL (0.90-5.00); Lymphocytes % (A) 29.7 %; MCHC 33.6 g/dL (32.0-37.0); MCV 92.4 fL (80.0-97.0); Mean Platelet Volume 9.7 fL (9.5-12.2); Monocytes # (A) 0.71 10*3/uL (0.20-1.00); Monocytes % (A) 9.2 %; Neutrophils # (A) 4.39 10*3/uL (1.80-7.70); Neutrophils % (A) 57.1 %; Platelet Count 273 10*3/uL (140-440); RBC 3.29 10*6/uL (4.40-5.60); RDW 13.1 % (11.5-14.5)
--- NOTE | 2024-08-20 06:43 | XR ---
EXAMINATION TYPE: XR chest 1V portable DATE OF EXAM: 08/20/2024 CLINICAL INDICATION: Male, 24 years old with history of on mechanical ventilator, progress study. SO B. TECHNIQUE: Single AP portable upright view of the chest is obtained. COMPARISON: Chest x-ray from one day earlier and older studies. FINDINGS: Exam remaining suboptimal due to patient's marked scoliosis. There is low-lying endotracheal tube just above the meir should be pulled back 1-2 cm. Persistent low lung volumes and central increased opacities bilaterally. Cardiac silhouette size stab le and within normal limits. IMPRESSION: 1. Suboptimal study. 2. Low-lying endotracheal tube should be pulled back 1-2cm to be in more ideal position. 3. Persistent low lung volumes and bilateral central opacities consistent with acute infiltrates and/ or edema. [facility], , 08/20/2024 6:40 AM
[2024-08-20 06:52] LABS: Anion Gap 6 mmol/L; Blood Urea Nitrogen 2 mg/dL (9-20); Calcium 7.9 mg/dL (8.4-10.2); Carbon Dioxide 25 mmol/L (22-30); Chloride 107 mmol/L (98-107); Glucose 109 mg/dL (74-99); Potassium 2.9 mmol/L (3.5-5.1); Sodium 138 mmol/L (137-145)
[2024-08-20 06:56] LABS: African American GFR (CKD) >90 (>60 ml/min/1.73 sqM); Non-African American GFR(CKD) >90 (>60 ml/min/1.73 sqM)
[2024-08-20] MEDS: POTASSIUM CHLORIDE 10 MEQ in WATER FOR INJECTION 1 100ML.BAG IVPB SCH (07:44)
[2024-08-20] MEDS: MAGNESIUM SULFATE-D5W PMX 1 GM in DEXTROSE/WATER 1 100ML.BAG IVPB SCH (09:43)
--- NOTE | 2024-08-20 10:01 | P.PN ---
Subjective Progress Note Date: 08/20/24 This is a 25-year-old white male known history of Duchenne muscular dystrophy, wheelchair-bound, nonambulatory, brought in last night to the emergency room, shortly after he had a cough episode, and patient had difficulty clearing his secretions according to his parents. Patient was noted to be gasping for air, then he was moved to his wheelchair and he started developing more gasping episodes. Then the patient went blue and unresponsive. EMS was brought in started CPR on the patient for about 5 minutes. Shortly after patient was noted to have return of spontaneous circulation, he was responsive, however he was still having difficulty breathing. Patient was Ambu bag and brought into the ER. Upon arrival, patient was intubated and mechanically ventilated. According to family the patient was not sick recently, he had no fever, no chills, and no sick contacts. No history of pulmonary embolism or DVT. Patient had extensive workup in the ER including a chest x-ray, CT angiogram of the chest, and CT of abdomen. CT angiogram of the chest showed no evidence of pulmonary embolism there was evidence however of small pneumomediastinum endotracheal tube was noted to be in proper positions. There was evidence of secretions within the right lower lobe and right middle lobe and atelectasis of the right middle lobe. No evidence of intra-abdominal process noted. And it confirmed orogastric tube in the stomach. Patient was placed empirically on antibiotics, I was notified about this patient, and I accepted the patient to be admitted to the ICU. Saw the patient today, he is on assist-control rate of 22 tidal volume 350 FiO2 was 50% and I cut it down to 40% PEEP of 5. ABG earlier today at 60% showed a pO2 of 158 pCO2 29 pH of 7.42. Patient is on propofol at 45 mcg/kg/min he is also on LR at 100 cc/h patient is normally on atenolol and he had a scopolamine patch applied because of excessive secretions through the endotracheal tube. Antibiotics chase patient is on Rocephin and Zithromax. Chest x-ray today is a very poor quality especially with his body habitus cannot tell much based on chest x-ray findings. Extremely suboptimal chest x-ray. I was about to consider weaning and extubation of this patient, however I noted that the patient had leukocytosis with WBC of 17.5, his electrolytes are reflecting anion gap metabolic acidosis with bicarb of 16 and anion gap of 17. Lactic acid was normal electrolytes were relatively unremarkable except for slightly low sodium and potassium, hence I will hold back on weaning today, the plan is to continue antibiotics, continue suctioning of secretions, and weaning to be addressed in the next 24 hours. I believe it is a bit too early to wean and extubate this patient at this point yet. 08/18/2024 patient seen and examined at bedside. Patient seen in the ICU intubated, sedated and on mechanical ventilation. No acute events overnight. Current ventilator settings volume control with a rate of 22, tidal volume 350, FiO2 40% and a PEEP of 5. Chest x-ray today showed severe thoracic deformity secondary to underlying scoliosis, improving aeration of the left, hazy density filling most of the right side suspected pleural effusion with underlying atelectasis and/or consolidation, ET tube estimated 1.7 to from the meir. Current drips propofol 50 mcg/kg/min, [id number] saline running at 100 cc/h. Currently on empiric antibiotics with ceftriaxone IVPB. Labs today: WBC 13.8, hemoglobin 11.9, platelet count 252,000, sodium 133, potassium 2.1, bicarb 21, BUN to creatinine less than 0.15, glucose 129, calcium 8.2. ABG showed pH 7.48, PCO2 23, PO2 115 08/19/2024 patient seen and examined at bedside in the ICU. Still currently intubated, sedated and on mechanical ventilation. No acute events overnight. Attempted SBT yesterday failed as patient became tachycardic, higher respiratory rate, NIF -6 and low tidal volumes during the trial. Current ventilator settings volume control with a rate of 22, tidal volume 350, FiO2 30% and a PEEP of 5. Current drips propofol 40 mcg/kg/min, [id number] saline running at 100 cc/h. Tube feeds at 40mL/hr. Currently on empiric antibiotics with ceftriaxone IVPB. Labs: WBC 10.3, hemoglobin 11.8, platelet count 253,000, sodium 137, potassium 4.1, bicarb 22, calcium 8.1, BUN 4, creatinine 0.15, glucose 99. ABG showed PO2 83, pCO2 33, pH 7.52, FiO2 30% Imaging; chest x-ray today showed stable aeration of the right and left lungs despite limited visualization due to patient's anatomy 08/20/2024 patient seen and examined at bedside in the ICU. Still currently int ubated, sedated and on mechanical ventilation. No acute events overnight. Attempted SBT yesterday and failed due to low tidal volumes and shallow breathing, increased respiratory rate with copius oral secretions. Current ventilator settings volume control with a rate of 20, tidal volume 350, FiO2 30% PEEP of 5. Propofol held at this time. Tube feeds held due to OG tube being disconnected. Labs: WBC 7.7, hemoglobin 10.2, platelet count 273,000, sodium 138, potassium 2.9, magnesium 1.5, bicarb 25, calcium 7.9, glucose 109, BUN 2, creatinine less than 0.15. ABG showed pO2 163, pCO2 26, pH 7.59 on FiO2 30%. Sputum culture negative. Imaging; chest x-ray showed low lying endotracheal tube, persistent low lung volumes of bilateral central opacities Review of systems: Unable to obtain at this time. Physical examination: Vital signs reviewed General: non toxic, no distress, looks appropriate for his age, sedated, intubated and on mechanical ventilation Derm: no unusual rashes/lesions, warm Head: atraumatic, normocephalic, symmetric Eyes: EOMI, anicteric sclera, pupils equal round reactive to light ENT: Nose and ears atraumatic Neck: No cervical lymphadenopathy, trachea midline, supple Mouth: no lip lesion, mucus membranes moist, ET tube noted Cardiovascular: S1S2 tachycardic, no murmur Lungs: bibasilar fine rales, no accessory muscle use Abdominal: soft, nontender to palpation, no guarding Ext: muscle strength 5 out of 5 in all 4 extremities grossly, notable muscle atrophy and contractures, positive dorsalis pedis pulse bilateral, no edema Neuro: Cannot be obtained Psych: Cannot be obtained Assessment: Acute hypoxic respiratory failure most likely secondary to mucous plugging Right lower lobe and right middle lobe atelectasis, possible pneumonia considering leukocytosis and metabolic acidosis, improved Sepsis secondary to above, resolved Brief cardiac arrest secondary to above Hypokalemia Hypomagnesemia Respiratory Alkalosis secondary to hypokalemia History of Duchenne muscular dystrophy Chronic sinus tachycardia maintained on atenolol Seasonal allergic rhinitis Benign essential hypertension Recommendation: Continue ventilatory support Daily interruption of sedation Spontaneous breathing trial today Continue bronchodilators with DuoNeb Discontinue ceftriaxone IVPB Continue IVF D5-1/2 NS 100cc/hr Continue scopolomine patch Currently on home atenolol 50mg twice daily Correct Magnesium and Potassium per protocol Continue suctioning of tracheal secretions Continue enteral feeding to goal rate DVT prophylaxis: Lovenox 40 mg subcu daily GI prophylaxis: Protonix 40 mg IVPB daily Prognosis: Discussed and reviewed with family at bedside his overall condition prognosis and aware of attempt for DIS and SBT Will continue to follow Patient is critically ill and has significant comorbidities which may hinder the process of weaning and extubation successfully. Princess Finley MD PGY-1/Government Relations Manager Dictation was produced using [employer] dictation software. please excuse any grammatical, word or spelling errors. Objective - Vital Signs Vital signs: Vital Signs Temp 97.7 F 08/20/24 04:00 Pulse 110 H 08/20/24 06:00 Resp 20 08/20/24 06:00 BP 100/52 08/20/24 06:00 Pulse Ox 100 08/20/24 06:00 FiO2 30 08/20/24 04:52 Intake & Output 08/19/24 08/19/24 08/20/24 06:59 18:59 06:59 Intake Total 1147.60 1664 1722.496 Output Total 1225 485 790 Balance -77.40 1179 932.496 Weight 74.9 kg 75.7 kg Intake: IV 536 24 Dextrose 5%-0.45% NaCl 1, 500 000 ml @ 100 mls/hr IV . Q10H [facility] Rx#:[id number] Pressure Bag 36 24 Intake, IV Titration 181.60 1100 1422.496 Amount Dextrose 5%-0.45% NaCl 1, 1000 1200 000 ml @ 100 mls/hr IV . Q10H [facility] Rx#:[id number] propofoL 1,000 mg In 181.60 100 222.496 Empty Bag 1 bag @ 15 MCG/ KG/MIN 6.12 mls/hr IV . [id number] [facility] Rx#:[id number] Tube Feeding 340 450 300 Other 90 90 Output: Urine 1225 485 790 Other: Voiding Method Indwelling Catheter Indwelling Catheter Indwelling Catheter ABP, PAP, CO, CI - Last Documented Arterial Blood Pressure 66/40 - Labs CBC & Chem 7: 08/20/24 05:47 08/20/24 05:47 Labs: Abnormal Lab Results - Last 24 Hours (Table) 08/19/24 08/19/24 08/20/24 Range/Units 12:03 23:14 04:53 RBC (4.40-5.60) 10*6/uL Hgb (13.0-17.0) g/dL Hct (39.6-50.0) % ABG pH 7.59 H* (7.35-7.45) ABG pCO2 26 L (35-45) mmHg ABG pO2 163 H (83-108) mmHg ABG Total CO2 25 H (19-24) mmol/L ABG O2 Saturation >100.0 H (94-97) % Hemoglobin 10.7 L (13.0-17.5) gm/dL POC Glucose (mg/dL) 112 H 117 H (70-110) mg/dL 08/20/24 Range/Units 05:47 RBC 3.29 L (4.40-5.60) 10*6/uL Hgb 10.2 L (13.0-17.0) g/dL Hct 30.4 L (39.6-50.0) % ABG pH (7.35-7.45) ABG pCO2 (35-45) mmHg ABG pO2 (83-108) mmHg ABG Total CO2 (19-24) mmol/L ABG O2 Saturation (94-97) % Hemoglobin (13.0-17.5) gm/dL POC Glucose (mg/dL) (70-110) mg/dL Microbiology - Last 24 Hours (Table) 08/17/24 06:01 Gram Stain - Final Sputum Sputum Culture - Final
[2024-08-20 12:18] LABS: Glucose,Whole Blood 182 mg/dL (70-110)
[2024-08-20 18:53] LABS: ABG Oxygen Saturation 97.8 % (94-97); ABG PO2 123 mmHg (83-108); Allen Test Performed? Yes
[2024-08-20] MEDS ORDERED: IPRATROPIUM-ALBUTEROL 3 ML NEB INHALATION PRN (19:00)
[2024-08-20 19:07] LABS: Glucose,Whole Blood 189 mg/dL (70-110)
--- NOTE | 2024-08-20 19:18 | P.PN ---
Progress Note - Text Progress Note Date: 08/20/24 Called for intubation for patient with respiratory failure, patient on CPAP, patient preoxygenated 100% O2, 120 mg of propofol given, intubated MAC 3-/ #1 attempt, positive color change. Patient on the ventilator
[2024-08-20 19:36] LABS: ABG PCO2 >98 mmHg (35-45); ABG PH 7.08 (7.35-7.45)
--- NOTE | 2024-08-20 19:49 | XR ---
EXAMINATION TYPE: XR chest 1V portable DATE OF EXAM: 08/20/2024 7:31 PM COMPARISON: Chest radiographs from 08/20/2024. CLINICAL INDICATION: Male, 24 years old with history of Tube placement; TECHNIQUE: XR chest 1V portable Frontal view of the chest. FINDINGS: Poor patient positioning noted. Lungs/Pleura: There is no evidence of pleural effusion, focal consolidation, or pneumothorax. Pulmonary vascularity: Unremarkable. Heart/mediastinum: Cardiomediastinal silhouette is unremarkable. Musculoskeletal: No acute osseous pathology. Lines/Tubes: Endotracheal tube appears at the meir. 1 mm above the meir. Nasogastric tube with its distal tip and side-port projecting under the diaphragm. IMPRESSION: 1. Poor patient positioning limits evaluation of the endotracheal tube. Endotracheal tube appears at the meir. Consider better technique dedicated chest radiograph for is a gastric tube positioning. 2. Nasogastric tube coiled in the stomach lumen under the diaphragm. [facility], , 08/20/2024 7:47 PM
[2024-08-20 21:08] LABS: VBG PH 7.3 (7.31-7.41)
--- NOTE | 2024-08-20 21:33 | P.PN ---
Subjective Progress Note Date: 08/19/24 History of present illness; patient is a 24-year-old gentleman with past medical history significant for Duchenne muscular dystrophy who presents the ER from home for respiratory distress. Apparently patient was all right yesterday morning when while at home patient starting having cough and started having shortness of breath. Patient started gasping for air, patient went unresponsive, patient family started CPR and EMS was called. Patient had CPR for approximately 5 minutes. EMS arrived at the spot and bagged en route to the hospital. In the ER, patient was continued to have respiratory distress and was intubated Initial lab work done in the ER showed WBC 7.01, hemoglobin 14.2, platelet count 413 sodium 138, potassium 3.7, chloride 99, BUN 9, creatinine 0.19, glucose 215, lactate 7, AST 61, troponin 0.034 UA done showed no infection EKG done in the ER showed heart rate of , no ST segment elevation or depression seen, no T-wave inversions seen. Chest x-ray done in the ER showed endotracheal tube in the left main bronchus, retraction recommended of 2 to 3 cm. gaseous distention of bowel and stomach CT chest PE protocol done showed no evidence of PE, no evidence of bowel obstruction. Secretions in the right lower lobe and right middle lobe airways with atelectasis of the right middle lobe Patient admitted to internal medicine service 08/18/2024 Patient is in the ICU. Intubated and sedated and on mechanical ventilator. Assist-control with respiratory rate 22, tidal volume 350 FiO2 40% and PEEP of 5. Chest x-ray showed severe thoracic deformity secondary to underlying scolio sis limiting the evaluation. Improving aeration on the left. Hazy density feeling most of the right side of the chest suspected pleural effusion with underlying atelectasis and/or consolidation likely similar. Patient had antibiotic ceftriaxone. Also on IV hydration with D5 normal saline at 100 cc/h. Laboratory data showed WBC 13.8 hemoglobin 11.9 and platelets 252 sodium 133 potassium 2.1 chloride 104 bicarb is 21 BUN less than 20 creatinine 0.15 and blood sugar 129 and calcium 8.2. Critical care team on board. 08/19/2024 Patient is in the MICU. Intubated, sedated and on mechanical ventilator. Continued on IV antibiotics and follow ceftriaxone 1 g IV PV and also on IV hydration with normal saline. Patient was also started on tube feeding at 40 cc/h. Laboratory data showed WBC 10.3 hemoglobin 11.8 and platelets 253 BUN 4 and creatinine 0.15 and calcium 8.1. Chest x-ray this morning showed severely limited exam due to combination of thoracic deformity, positioning and sitting down. Unable to visualize ET tube. Suspect underlying sizable right pleural effusion with adjacent atelectasis and/or consolidation. Current medications reviewed. REVIEW OF SYSTEMS: Review of system cannot be obtained as patient currently intubated PHYSICAL EXAMINATION: GENERAL: The patient is intubated HEENT: Pupils are round and equally reacting to light. EOMI. No scleral icterus. No conjunctival pallor. Normocephalic, atraumatic. No pharyngeal erythema. No thyromegaly. CARDIOVASCULAR: S1 and S2 present. No murmurs, rubs, or gallops. PULMONARY: Coarse breath sound bilaterally, diminished at the bases ABDOMEN: Soft, nontender, nondistended, normoactive bowel sounds. No palpable or ganomegaly. MUSCULOSKELETAL: No joint swelling or deformity. EXTREMITIES: No cyanosis, clubbing, or pedal edema. NEUROLOGICAL: Intubated SKIN: No rashes. Assessment and plan Acute hypoxic respiratory failure likely secondary to right bronchial mucous plugging Possible bacterial pneumonia Sepsis secondary to above Status post brief cardiac arrest Lactic acidosis. Improved History of Duchenne's muscle dystrophy Chronic sinus tachycardia maintained on atenolol Seasonal allergic rhinitis Benign essential hypertension Monitor vital signs Monitor CBC Monitor CMP Continue telemetry monitoring Serial ABGs Continue vent management Serial chest x-rays Ordered breathing treatment Continue IV Rocephin Procalcitonin 0.53 Critical care team is on board. Continue with frequent suctioning. Considering bronchoscopy. Labs and medication were reviewed.. Monitor labs and vitals. DVT and GI prophylaxis. Dictation was produced using [employer] software. please excuse any grammatical, word or spelling errors. Objective - Vital Signs Vital signs: Vital Signs Temp 99.6 F 08/19/24 20:00 Pulse 108 H 08/19/24 20:12 Resp 22 08/19/24 20:00 BP 92/41 08/19/24 20:00 Pulse Ox 100 08/19/24 20:00 FiO2 30 08/19/24 20:03 Intake & Output 08/19/24 08/19/24 08/20/24 06:59 18:59 06:59 Intake Total 1147.60 1664 366.368 Output Total 1225 485 80 Balance -77.40 1179 286.368 Weight 74.9 kg Intake: IV 536 24 Dextrose 5%-0.45% NaCl 1, 500 000 ml @ 100 mls/hr IV . Q10H [facility] Rx#:[id number] Pressure Bag 36 24 Intake, IV Titration 181.60 1100 266.368 Amount Dextrose 5%-0.45% NaCl 1, 1000 200 000 ml @ 100 mls/hr IV . Q10H [facility] Rx#:[id number] propofoL 1,000 mg In 181.60 100 66.368 Empty Bag 1 bag @ 15 MCG/ KG/MIN 6.12 mls/hr IV . [id number] [facility] Rx#:[id number] Tube Feeding 340 450 100 Other 90 90 Output: Urine 1225 485 80 Other: Voiding Method Indwelling Catheter Indwelling Catheter Indwelling Catheter ABP, PAP, CO, CI - Last Documented Arterial Blood Pressure 66/40 - Labs CBC & Chem 7: 08/20/24 05:47 08/20/24 19:54 Labs: Abnormal Lab Results - Last 24 Hours (Table) 08/19/24 08/19/24 08/19/24 Range/Units 05:00 05:59 05:59 WBC 10.38 H (4.50-10.00) 10*3/uL RBC 3.68 L (4.40-5.60) 10*6/uL Hgb 11.8 L (13.0-17.0) g/dL Hct 33.9 L (39.6-50.0) % MCH 32.1 H (27.0-32.0) pg Neutrophils # 7.75 H (1.80-7.70) 10*3/uL ABG pH 7.52 H (7.35-7.45) ABG pCO2 33 L (35-45) mmHg ABG HCO3 27 H (21-25) mmol/L ABG Total CO2 28 H (19-24) mmol/L ABG O2 Saturation 98.2 H (94-97) % Hemoglobin 11.6 L (13.0-17.5) gm/dL BUN 4 L (9-20) mg/dL Creatinine <0.15 L (0.66-1.25) mg/dL POC Glucose (mg/dL) (70-110) mg/dL Calcium 8.1 L (8.4-10.2) mg/dL 08/19/24 Range/Units 12:03 WBC (4.50-10.00) 10*3/uL RBC (4.40-5.60) 10*6/uL Hgb (13.0-17.0) g/dL Hct (39.6-50.0) % MCH (27.0-32.0) pg Neutrophils # (1.80-7.70) 10*3/uL ABG pH (7.35-7.45) ABG pCO2 (35-45) mmHg ABG HCO3 (21-25) mmol/L ABG Total CO2 (19-24) mmol/L ABG O2 Saturation (94-97) % Hemoglobin (13.0-17.5) gm/dL BUN (9-20) mg/dL Creatinine (0.66-1.25) mg/dL POC Glucose (mg/dL) 112 H (70-110) mg/dL Calcium (8.4-10.2) mg/dL Microbiology - Last 24 Hours (Table) 08/17/24 06:01 Gram Stain - Final Sputum Sputum Culture - Final
--- NOTE | 2024-08-20 21:35 | P.PN ---
Subjective Progress Note Date: 08/20/24 History of present illness; patient is a 24-year-old gentleman with past medical history significant for Duchenne muscular dystrophy who presents the ER from home for respiratory distress. Apparently patient was all right yesterday morning when while at home patient starting having cough and started having shortness of breath. Patient started gasping for air, patient went unresponsive, patient family started CPR and EMS was called. Patient had CPR for approximately 5 minutes. EMS arrived at the spot and bagged en route to the hospital. In the ER, patient was continued to have respiratory distress and was intubated Initial lab work done in the ER showed WBC 7.01, hemoglobin 14.2, platelet count 413 sodium 138, potassium 3.7, chloride 99, BUN 9, creatinine 0.19, glucose 215, lactate 7, AST 61, troponin 0.034 UA done showed no infection EKG done in the ER showed heart rate of , no ST segment elevation or depression seen, no T-wave inversions seen. Chest x-ray done in the ER showed endotracheal tube in the left main bronchus, retraction recommended of 2 to 3 cm. gaseous distention of bowel and stomach CT chest PE protocol done showed no evidence of PE, no evidence of bowel obstruction. Secretions in the right lower lobe and right middle lobe airways with atelectasis of the right middle lobe Patient admitted to internal medicine service 08/18/2024 Patient is in the ICU. Intubated and sedated and on mechanical ventilator. Assist-control with respiratory rate 22, tidal volume 350 FiO2 40% and PEEP of 5. Chest x-ray showed severe thoracic deformity secondary to underlying scolio sis limiting the evaluation. Improving aeration on the left. Hazy density feeling most of the right side of the chest suspected pleural effusion with underlying atelectasis and/or consolidation likely similar. Patient had antibiotic ceftriaxone. Also on IV hydration with D5 normal saline at 100 cc/h. Laboratory data showed WBC 13.8 hemoglobin 11.9 and platelets 252 sodium 133 potassium 2.1 chloride 104 bicarb is 21 BUN less than 20 creatinine 0.15 and blood sugar 129 and calcium 8.2. Critical care team on board. 08/19/2024 Patient is in the MICU. Intubated, sedated and on mechanical ventilator. Continued on IV antibiotics and follow ceftriaxone 1 g IV PV and also on IV hydration with normal saline. Patient was also started on tube feeding at 40 cc/h. Laboratory data showed WBC 10.3 hemoglobin 11.8 and platelets 253 BUN 4 and creatinine 0.15 and calcium 8.1. Chest x-ray this morning showed severely limited exam due to combination of thoracic deformity, positioning and sitting down. Unable to visualize ET tube. Suspect underlying sizable right pleural effusion with adjacent atelectasis and/or consolidation. 08/20/2024 Patient is in the MICU. On mechanical ventilator. Sedation is on hold.. Failed weaning trial yesterday. Currently on assist-control with respirate rate of 20 tidal volume 350 FiO2 30% and PEEP of 5. Patient remains on antibiotics in the form of ceftriaxone 1 g daily. Chest x-ray showed suboptimal study. Low-lying endotracheal tube should be pulled back 1 to 2 cm to be more ideal position. Persistent low lung volumes and bilateral central opacities consistent with acute infiltrates and marrow edema. Current medications reviewed. REVIEW OF SYSTEMS: Review of system cannot be obtained as patient currently intubated PHYSICAL EXAMINATION: GENERAL: The patient is intubated HEENT: Pupils are round and equally reacting to light. EOMI. No scleral icterus. No conjunctival pallor. Normocephalic, atraumatic. No pharyngeal erythema. No thyromegaly. CARDIOVASCULAR: S1 and S2 present. No murmurs, rubs, or gallops. PULMONARY: Coarse breath sound bilaterally, diminished at the bases ABDOMEN: Soft, nontender, nondistended, normoactive bowel sounds. No palpable organomegaly. MUSCULOSKELETAL: No joint swelling or deformity. EXTREMITIES: No cyanosis, clubbing, or pedal edema. NEUROLOGICAL: Intubated SKIN: No rashes. Assessment and plan Acute hypoxic respiratory failure likely secondary to right bronchial mucous plugging Possible bacterial pneumonia Sepsis secondary to above Status post brief cardiac arrest Lactic acidosis. Improved History of Duchenne's muscle dystrophy Chronic sinus tachycardia maintained on atenolol Seasonal allergic rhinitis Benign essential hypertension Monitor vital signs Monitor CBC Monitor CMP Continue telemetry monitoring Serial ABGs Continue vent management Serial chest x-rays Ordered breathing treatment Continue IV Rocephin Procalcitonin 0.53 Critical care team is on board. Continue with frequent suctioning. Labs and medication were reviewed.. Monitor labs and vitals. DVT and GI prophylaxis. Dictation was produced using [employer] software. please excuse any grammatical, word or spelling errors. Objective - Vital Signs Vital signs: Vital Signs Temp 97.3 F L 08/20/24 16:00 Pulse 107 H 08/20/24 18:00 Resp 30 H 08/20/24 18:00 BP 111/63 08/20/24 18:00 Pulse Ox 95 08/20/24 18:00 FiO2 100 08/20/24 19:02 Intake & Output 08/20/24 08/20/24 08/21/24 06:59 18:59 06:59 Intake Total 2031.855 6279.982 Output Total 790 1160 Balance 943.716 550.982 Weight 75.7 kg Intake: IV 1600 Dextrose 5%-0.45% NaCl 1, 600 000 ml @ 100 mls/hr IV . Q10H [facility] Rx#:[id number] Dextrose 5%-0.45% NaCl 1, 400 000 ml @ 100 mls/hr IV . Q10H [facility] Rx#:[id number] Potassium Chloride 10 meq 600 In Water For Injection 1 100ml.bag @ 100 mls/hr IVPB Q1H [facility] Rx#: [id number] Intake, IV Titration 1433.716 110.982 Amount Dextrose 5%-0.45% NaCl 1, 1200 100 000 ml @ 100 mls/hr IV . Q10H [facility] Rx#:[id number] propofoL 1,000 mg In 233.716 10.982 Empty Bag 1 bag @ 15 MCG/ KG/MIN 6.12 mls/hr IV . [id number] [facility] Rx#:[id number] Tube Feeding 300 Output: Urine 790 1160 Other: Voiding Method Indwelling Catheter Indwelling Catheter ABP, PAP, CO, CI - Last Documented Arterial Blood Pressure 66/40 - Labs CBC & Chem 7: 08/20/24 05:47 08/20/24 19:54 Labs: Abnormal Lab Results - Last 24 Hours (Table) 08/19/24 08/20/24 08/20/24 Range/Units 23:14 04:53 05:47 RBC 3.29 L (4.40-5.60) 10*6/uL Hgb 10.2 L (13.0-17.0) g/dL Hct 30.4 L (39.6-50.0) % ABG pH 7.59 H* (7.35-7.45) ABG pCO2 26 L (35-45) mmHg ABG pO2 163 H (83-108) mmHg ABG Total CO2 25 H (19-24) mmol/L ABG O2 Saturation >100.0 H (94-97) % Hemoglobin 10.7 L (13.0-17.5) gm/dL Potassium (3.5-5.1) mmol/L BUN (9-20) mg/dL Creatinine (0.66-1.25) mg/dL Glucose (74-99) mg/dL POC Glucose (mg/dL) 117 H (70-110) mg/dL Calcium (8.4-10.2) mg/dL Magnesium (1.6-2.3) mg/dL 08/20/24 08/20/24 08/20/24 Range/Units 05:47 05:47 12:16 RBC (4.40-5.60) 10*6/uL Hgb (13.0-17.0) g/dL Hct (39.6-50.0) % ABG pH (7.35-7.45) ABG pCO2 (35-45) mmHg ABG pO2 (83-108) mmHg ABG Total CO2 (19-24) mmol/L ABG O2 Saturation (94-97) % Hemoglobin (13.0-17.5) gm/dL Potassium 2.9 L (3.5-5.1) mmol/L BUN 2 L (9-20) mg/dL Creatinine <0.15 L (0.66-1.25) mg/dL Glucose 109 H (74-99) mg/dL POC Glucose (mg/dL) 182 H (70-110) mg/dL Calcium 7.9 L (8.4-10.2) mg/dL Magnesium 1.5 L (1.6-2.3) mg/dL
--- NOTE | 2024-08-20 21:45 | XR ---
EXAMINATION TYPE: XR chest 1V portable DATE OF EXAM: 08/20/2024 8:57 PM COMPARISON: Chest radiographs from same day CLINICAL INDICATION: Male, 24 years old with history of NG tube placement; [facility] TECHNIQUE: XR chest 1V portable Frontal view of the chest. FINDINGS: Poor patient positioning again noted Lungs/Pleura: There is no evidence of pleural effusion, focal consolidation, or pneumothorax. Pulmonary vascularity: Unremarkable. Heart/mediastinum: Cardiomediastinal silhouette is unremarkable. Musculoskeletal: No acute osseous pathology. Lines/Tubes: Endotracheal tube appears at the meir. 11 mm above the meir. Nasogastric tube with its distal tip and side-port projecting under the diaphragm. IMPRESSION: 1. Endotracheal tube now 11 mm above the meir. dedicated chest radiograph for is a gastric tube po sitioning. 2. Similar Nasogastric tube coiled in the stomach lumen under the diaphragm. [facility], , 08/20/2024 9:43 PM
--- NOTE | 2024-08-20 21:47 | XR ---
EXAMINATION TYPE: XR chest 1V confirm line plcmt DATE OF EXAM: 08/20/2024 9:16 PM COMPARISON: Chest radiographs from same-day CLINICAL INDICATION: Male, 24 years old with history of NG TUBE PLACEMENT; [facility] TECHNIQUE: XR chest 1V confirm line plcmt Frontal view of the chest. FINDINGS: Poor patient positioning again noted Lungs/Pleura: There is no evidence of pleural effusion, focal consolidation, or pneumothorax. Pulmonary vascularity: Unremarkable. Heart/mediastinum: Cardiomediastinal silhouette is unremarkable. Musculoskeletal: No acute osseous pathology. Lines/Tubes: Endotracheal tube appears at the meir. 12 mm above the meir. Nasogastric tube with its distal tip and side-port projecting under the diaphragm. IMPRESSION: Poor patient positioning limits evaluation. 1. Endotracheal tube now 12 mm above the meir. dedicated chest radiograph for is a gastric tube po sitioning. 2. Nasogastric tube retracted and in a more satisfactory position. [facility], , 08/20/2024 9:44 PM
[2024-08-21 00:26] LABS: Glucose,Whole Blood 105 mg/dL (70-110)
[2024-08-21 05:56] LABS: Basophils # (A) 0.03 10*3/uL (0.00-0.10); Basophils % (A) 0.4 %; Eosinophils # (A) 0.08 10*3/uL (0.04-0.35); HCT 32.5 % (39.6-50.0); HGB 11.2 g/dL (13.0-17.0); Lymphocytes # (A) 1.79 10*3/uL (0.90-5.00); Lymphocytes % (A) 22.6 %; MCH 31.9 pg (27.0-32.0); MCHC 34.5 g/dL (32.0-37.0); MCV 92.6 fL (80.0-97.0); Mean Platelet Volume 10.2 fL (9.5-12.2); Monocytes # (A) 0.73 10*3/uL (0.20-1.00); Monocytes % (A) 9.2 %; Neutrophils # (A) 5.24 10*3/uL (1.80-7.70); Neutrophils % (A) 66.2 %; RBC 3.51 10*6/uL (4.40-5.60); RDW 12.7 % (11.5-14.5); WBC 7.92 10*3/uL (4.50-10.00)
[2024-08-21 05:57] LABS: Glucose,Whole Blood 81 mg/dL (70-110)
[2024-08-21] MEDS ORDERED: DEXTROSE 50% SYRINGE 50 ML IVP PRN (05:58)
--- NOTE | 2024-08-21 06:00 | XR ---
EXAMINATION TYPE: XR chest 1V portable DATE OF EXAM: 08/21/2024 CLINICAL INDICATION: Male, 24 years old with history of Tube placement, progress study. SOB. TECHNIQUE: Single AP portable upright view of the chest is obtained. COMPARISON: Chest x-ray from one day earlier and older studies. FINDINGS: Exam remains suboptimal due to patient's marked scoliosis. Stable low-lying endotracheal tube just above meir. Stable orogastric tube. Persistent low lung volumes and central increased opacities bilaterally. Cardiac silhouette size stab le and within normal limits. IMPRESSION: 1. Suboptimal study. 2. Persistent low lung volumes and bilateral central opacities consistent with acute infiltrates and/ or edema. [facility], , 08/21/2024 5:58 AM
[2024-08-21 06:05] LABS: Platelet Count 161 10*3/uL (140-440)
[2024-08-21 06:11] LABS: Anion Gap 8 mmol/L; Calcium 8.3 mg/dL (8.4-10.2); Carbon Dioxide 25 mmol/L (22-30); Chloride 103 mmol/L (98-107); Glucose 92 mg/dL (74-99); Magnesium 2.1 mg/dL (1.6-2.3); Potassium 3.2 mmol/L (3.5-5.1); Sodium 136 mmol/L (137-145)
[2024-08-21] MEDS: DEXTROSE 50% SYRINGE 50 ML IVP PRN (06:11)
[2024-08-21 06:45] LABS: African American GFR (CKD) >90 (>60 ml/min/1.73 sqM); Non-African American GFR(CKD) >90 (>60 ml/min/1.73 sqM)
[2024-08-21 06:51] LABS: Blood Urea Nitrogen <2 mg/dL (9-20)
[2024-08-21 06:57] LABS: VBG PH 7.6 (7.31-7.41)
[2024-08-21] MEDS: POTASSIUM CHLORIDE 10 MEQ in WATER FOR INJECTION 1 100ML.BAG IVPB SCH (08:32)
[2024-08-21] MEDS: POTASSIUM BICARBONATE/CIT AC 20 MEQ TABLET.EFF NG-TUBE SCH (08:50)
--- NOTE | 2024-08-21 11:30 | P.PN ---
Subjective Progress Note Date: 08/21/24 This is a 25-year-old white male known history of Duchenne muscular dystrophy, wheelchair-bound, nonambulatory, brought in last night to the emergency room, shortly after he had a cough episode, and patient had difficulty clearing his secretions according to his parents. Patient was noted to be gasping for air, then he was moved to his wheelchair and he started developing more gasping episodes. Then the patient went blue and unresponsive. EMS was brought in started CPR on the patient for about 5 minutes. Shortly after patient was noted to have return of spontaneous circulation, he was responsive, however he was still having difficulty breathing. Patient was Ambu bag and brought into the ER. Upon arrival, patient was intubated and mechanically ventilated. According to family the patient was not sick recently, he had no fever, no chills, and no sick contacts. No history of pulmonary embolism or DVT. Patient had extensive workup in the ER including a chest x-ray, CT angiogram of the chest, and CT of abdomen. CT angiogram of the chest showed no evidence of pulmonary embolism there was evidence however of small pneumomediastinum endotracheal tube was noted to be in proper positions. There was evidence of secretions within the right lower lobe and right middle lobe and atelectasis of the right middle lobe. No evidence of intra-abdominal process noted. And it confirmed orogastric tube in the stomach. Patient was placed empirically on antibiotics, I was notified about this patient, and I accepted the patient to be admitted to the ICU. Saw the patient today, he is on assist-control rate of 22 tidal volume 350 FiO2 was 50% and I cut it down to 40% PEEP of 5. ABG earlier today at 60% showed a pO2 of 158 pCO2 29 pH of 7.42. Patient is on propofol at 45 mcg/kg/min he is also on LR at 100 cc/h patient is normally on atenolol and he had a scopolamine patch applied because of excessive secretions through the endotracheal tube. Antibiotics chase patient is on Rocephin and Zithromax. Chest x-ray today is a very poor quality especially with his body habitus cannot tell much based on chest x-ray findings. Extremely suboptimal chest x-ray. I was about to consider weaning and extubation of this patient, however I noted that the patient had leukocytosis with WBC of 17.5, his electrolytes are reflecting anion gap metabolic acidosis with bicarb of 16 and anion gap of 17. Lactic acid was normal electrolytes were relatively unremarkable except for slightly low sodium and potassium, hence I will hold back on weaning today, the plan is to continue antibiotics, continue suctioning of secretions, and weaning to be addressed in the next 24 hours. I believe it is a bit too early to wean and extubate this patient at this point yet. 08/18/2024 patient seen and examined at bedside. Patient seen in the ICU intubated, sedated and on mechanical ventilation. No acute events overnight. Current ventilator settings volume control with a rate of 22, tidal volume 350, FiO2 40% and a PEEP of 5. Chest x-ray today showed severe thoracic deformity secondary to underlying scoliosis, improving aeration of the left, hazy density filling most of the right side suspected pleural effusion with underlying atelectasis and/or consolidation, ET tube estimated 1.7 to from the meir. Current drips propofol 50 mcg/kg/min, [id number] saline running at 100 cc/h. Currently on empiric antibiotics with ceftriaxone IVPB. Labs today: WBC 13.8, hemoglobin 11.9, platelet count 252,000, sodium 133, potassium 2.1, bicarb 21, BUN to creatinine less than 0.15, glucose 129, calcium 8.2. ABG showed pH 7.48, PCO2 23, PO2 115 08/19/2024 patient seen and examined at bedside in the ICU. Still currently intubated, sedated and on mechanical ventilation. No acute events overnight. Attempted SBT yesterday failed as patient became tachycardic, higher respiratory rate, NIF -6 and low tidal volumes during the trial. Current ventilator settings volume control with a rate of 22, tidal volume 350, FiO2 30% and a PEEP of 5. Current drips propofol 40 mcg/kg/min, [id number] saline running at 100 cc/h. Tube feeds at 40mL/hr. Currently on empiric antibiotics with ceftriaxone IVPB. Labs: WBC 10.3, hemoglobin 11.8, platelet count 253,000, sodium 137, potassium 4.1, bicarb 22, calcium 8.1, BUN 4, creatinine 0.15, glucose 99. ABG showed PO2 83, pCO2 33, pH 7.52, FiO2 30% Imaging; chest x-ray today showed stable aeration of the right and left lungs despite limited visualization due to patient's anatomy 08/20/2024 patient seen and examined at bedside in the ICU. Still currently int ubated, sedated and on mechanical ventilation. No acute events overnight. Attempted SBT yesterday and failed due to low tidal volumes and shallow breathing, increased respiratory rate with copius oral secretions. Current ventilator settings volume control with a rate of 20, tidal volume 350, FiO2 30% PEEP of 5. Propofol held at this time. Tube feeds held due to OG tube being disconnected. Labs: WBC 7.7, hemoglobin 10.2, platelet count 273,000, sodium 138, potassium 2.9, magnesium 1.5, bicarb 25, calcium 7.9, glucose 109, BUN 2, creatinine less than 0.15. ABG showed pO2 163, pCO2 26, pH 7.59 on FiO2 30%. Sputum culture negative. Imaging; chest x-ray showed low lying endotracheal tube, persistent low lung volumes of bilateral central opacities 08/21/2024 patient seen and examined at bedside in the ICU. DIS SBT attempted yesterday with marginal weaning parameters but patient's overall clinical status has improved and extubation was done. Patient's oxygenation requirements increased throughout the day, requiring BiPAP around 6pm and eventually requiring reintubation. Current mechanical ventilator settings volume control with a rate of 20, tidal volume 350, FiO2 50% and PEEP of 5. Current IV drip of propofol 40 mcg/kg/min. Tube feed vital high-protein at 10 mL/h. Labs: WBC 6.92, hemoglobin 11.2, platelet count 1 61,000, sodium 136, potassium 3.2, bicarb 25, BUN less than 2, creatinine less than 0.15, calcium 8.3, magnesium 2.1, glucose 92. VBG bicarb 26, CO2 26, pH 7.6. Imaging; chest x-ray today showed stable bilateral central opacities consistent with acute infiltrates/edema and low lung volumes Review of systems: Unable to obtain at this time. Physical examination: Vital signs reviewed General: non toxic, no distress, looks appropriate for his age, sedated, intubated and on mechanical ventilation Derm: no unusual rashes/lesions, warm Head: atraumatic, normocephalic, symmetric Eyes: EOMI, anicteric sclera, pupils equal round reactive to light ENT: Nose and ears atraumatic Neck: No cervical lymphadenopathy, trachea midline, supple Mouth: no lip lesion, mucus membranes moist, ET and OG tube noted Cardiovascular: S1S2 tachycardic, no murmur Lungs: bibasilar fine rales, no accessory muscle use Abdominal: soft, nontender to palpation, no guarding Ext: muscle strength 5 out of 5 in all 4 extremities grossly, notable muscle atrophy and contractures, positive dorsalis pedis pulse bilateral, no edema Neuro: Cannot be obtained Psych: Cannot be obtained Assessment: Acute hypoxic respiratory failure most likely secondary to mucous plugging Right lower lobe and right middle lobe atelectasis, possible pneumonia considering leukocytosis and metabolic acidosis, improved Sepsis secondary to above, resolved Brief cardiac arrest secondary to above Hypokalemia Hypomagnesemia, resolved Respiratory Alkalosis secondary to hypokalemia History of Duchenne muscular dystrophy Chronic sinus tachycardia maintained on atenolol Seasonal allergic rhinitis Benign essential hypertension Recommendation: Patient went into respiratory failure and required reintubation. Continue ventilatory support. Will reevaluate after a day or so for readiness to extubate. Planned ART line placement today. Continue sedation with propofol IV Continue IVF D5-1/2 NS 100cc/hr Continue bronchodilators with DuoNeb Continue scopolomine patch to control secretions Currently on home atenolol 50mg twice daily Correct Potassium per protocol Continue suctioning of tracheal secretions Continue enteral feeding to goal rate Consider nephrology consult due to persistent hypokalemia DVT prophylaxis: Lovenox 40 mg subcu daily GI prophylaxis: Protonix 40 mg IVPB daily Prognosis: Discussed and reviewed with family at bedside his overall condition prognosis Will continue to follow Patient is critically ill and has significant comorbidities which may hinder the process of weaning and extubation successfully. Princess Finley MD PGY-1/Medical Aides Teacher Dictation was produced using [employer] dictation software. please excuse any grammatical, word or spelling errors. Objective - Vital Signs Vital signs: Vital Signs Temp 99.5 F 08/21/24 04:00 Pulse 87 08/21/24 07:48 Resp 20 08/21/24 07:48 BP 87/56 08/21/24 07:00 Pulse Ox 100 08/21/24 07:00 FiO2 50 08/21/24 04:11 Intake & Output 08/20/24 08/21/24 08/21/24 18:59 06:59 18:59 Intake Total 6667.100 9448.586 100 Output Total 1235 1450 75 Balance 575.982 -74.414 25 Weight 75.4 kg Intake: IV 1700 1250 100 Dextrose 5%-0.45% NaCl 1, 600 000 ml @ 100 mls/hr IV . Q10H [facility] Rx#:[id number] Dextrose 5%-0.45% NaCl 1, 500 1200 100 000 ml @ 100 mls/hr IV . Q10H [facility] Rx#:[id number] Potassium Chloride 10 meq 600 In Water For Injection 1 100ml.bag @ 100 mls/hr IVPB Q1H [facility] Rx#: [id number] cefTRIAXone 1 gm In 50 Sodium Chloride 0.9% 50 ml @ 100 mls/hr IVPB HS [facility] Rx#:[id number] Intake, IV Titration 110.982 125.586 Amount Dextrose 5%-0.45% NaCl 1, 100 000 ml @ 100 mls/hr IV . Q10H [facility] Rx#:[id number] propofoL 1,000 mg In 10.982 Empty Bag 1 bag @ 15 MCG/ KG/MIN 6.12 mls/hr IV . [id number] [facility] Rx#:[id number] propofoL 1,000 mg In 125.586 Empty Bag 1 bag @ 15 MCG/ KG/MIN 6.813 mls/hr IV . [id number] [facility] Rx#:[id number] Output: Urine 1235 1450 75 Other: Voiding Method Indwelling Catheter Indwelling Catheter ABP, PAP, CO, CI - Last Documented Arterial Blood Pressure 66/40 - Labs CBC & Chem 7: 08/21/24 05:39 08/21/24 05:39 Labs: Abnormal Lab Results - Last 24 Hours (Table) 08/20/24 08/20/24 08/20/24 Range/Units 05:47 12:16 18:48 RBC (4.40-5.60) 10*6/uL Hgb (13.0-17.0) g/dL Hct (39.6-50.0) % Immature Gran # (0.00-0.04) 10*3/uL ABG pH 7.08 L* (7.35-7.45) ABG pCO2 >98 H* (35-45) mmHg ABG pO2 123 H (83-108) mmHg ABG O2 Saturation 97.8 H (94-97) % VBG pH (7.31-7.41) VBG pCO2 (37-51) mmHg Hemoglobin 12.6 L (13.0-17.5) gm/dL Sodium (137-145) mmol/L Potassium (3.5-5.1) mmol/L BUN (9-20) mg/dL Creatinine (0.66-1.25) mg/dL POC Glucose (mg/dL) 182 H (70-110) mg/dL Calcium (8.4-10.2) mg/dL Magnesium 1.5 L (1.6-2.3) mg/dL 08/20/24 08/20/24 08/20/24 Range/Units 19:05 19:54 20:58 RBC (4.40-5.60) 10*6/uL Hgb (13.0-17.0) g/dL Hct (39.6-50.0) % Immature Gran # (0.00-0.04) 10*3/uL ABG pH (7.35-7.45) ABG pCO2 (35-45) mmHg ABG pO2 (83-108) mmHg ABG O2 Saturation (94-97) % VBG pH 7.30 L (7.31-7.41) VBG pCO2 (37-51) mmHg Hemoglobin (13.0-17.5) gm/dL Sodium (137-145) mmol/L Potassium 5.5 H (3.5-5.1) mmol/L BUN (9-20) mg/dL Creatinine (0.66-1.25) mg/dL POC Glucose (mg/dL) 189 H (70-110) mg/dL Calcium (8.4-10.2) mg/dL Magnesium (1.6-2.3) mg/dL 08/21/24 08/21/24 08/21/24 Range/Units 05:39 05:39 05:39 RBC 3.51 L (4.40-5.60) 10*6/uL Hgb 11.2 L (13.0-17.0) g/dL Hct 32.5 L (39.6-50.0) % Immature Gran # 0.05 H (0.00-0.04) 10*3/uL ABG pH (7.35-7.45) ABG pCO2 (35-45) mmHg ABG pO2 (83-108) mmHg ABG O2 Saturation (94-97) % VBG pH 7.60 H* (7.31-7.41) VBG pCO2 26 L (37-51) mmHg Hemoglobin (13.0-17.5) gm/dL Sodium 136 L (137-145) mmol/L Potassium 3.2 L (3.5-5.1) mmol/L BUN <2 L (9-20) mg/dL Creatinine <0.15 L (0.66-1.25) mg/dL POC Glucose (mg/dL) (70-110) mg/dL Calcium 8.3 L (8.4-10.2) mg/dL Magnesium (1.6-2.3) mg/dL
[2024-08-21 11:41] LABS: Glucose,Whole Blood 116 mg/dL (70-110)
--- NOTE | 2024-08-21 13:30 | P.PN ---
Subjective Progress Note Date: 08/21/24 History of present illness; patient is a 24-year-old gentleman with past medical history significant for Duchenne muscular dystrophy who presents the ER from home for respiratory distress. Apparently patient was all right yesterday morning when while at home patient starting having cough and started having shortness of breath. Patient started gasping for air, patient went unresponsive, patient family started CPR and EMS was called. Patient had CPR for approximately 5 minutes. EMS arrived at the spot and bagged en route to the hospital. In the ER, patient was continued to have respiratory distress and was intubated Initial lab work done in the ER showed WBC 7.01, hemoglobin 14.2, platelet count 413 sodium 138, potassium 3.7, chloride 99, BUN 9, creatinine 0.19, glucose 215, lactate 7, AST 61, troponin 0.034 UA done showed no infection EKG done in the ER showed heart rate of , no ST segment elevation or depression seen, no T-wave inversions seen. Chest x-ray done in the ER showed endotracheal tube in the left main bronchus, retraction recommended of 2 to 3 cm. gaseous distention of bowel and stomach CT chest PE protocol done showed no evidence of PE, no evidence of bowel obstruction. Secretions in the right lower lobe and right middle lobe airways with atelectasis of the right middle lobe Patient admitted to internal medicine service 08/18/2024 Patient is in the ICU. Intubated and sedated and on mechanical ventilator. Assist-control with respiratory rate 22, tidal volume 350 FiO2 40% and PEEP of 5. Chest x-ray showed severe thoracic deformity secondary to underlying scolio sis limiting the evaluation. Improving aeration on the left. Hazy density feeling most of the right side of the chest suspected pleural effusion with underlying atelectasis and/or consolidation likely similar. Patient had antibiotic ceftriaxone. Also on IV hydration with D5 normal saline at 100 cc/h. Laboratory data showed WBC 13.8 hemoglobin 11.9 and platelets 252 sodium 133 potassium 2.1 chloride 104 bicarb is 21 BUN less than 20 creatinine 0.15 and blood sugar 129 and calcium 8.2. Critical care team on board. 08/19/2024 Patient is in the MICU. Intubated, sedated and on mechanical ventilator. Continued on IV antibiotics and follow ceftriaxone 1 g IV PV and also on IV hydration with normal saline. Patient was also started on tube feeding at 40 cc/h. Laboratory data showed WBC 10.3 hemoglobin 11.8 and platelets 253 BUN 4 and creatinine 0.15 and calcium 8.1. Chest x-ray this morning showed severely limited exam due to combination of thoracic deformity, positioning and sitting down. Unable to visualize ET tube. Suspect underlying sizable right pleural effusion with adjacent atelectasis and/or consolidation. 08/20/2024 Patient is in the MICU. On mechanical ventilator. Sedation is on hold.. Failed weaning trial yesterday. Currently on assist-control with respirate rate of 20 tidal volume 350 FiO2 30% and PEEP of 5. Patient remains on antibiotics in the form of ceftriaxone 1 g daily. Chest x-ray showed suboptimal study. Low-lying endotracheal tube should be pulled back 1 to 2 cm to be more ideal position. Persistent low lung volumes and bilateral central opacities consistent with acute infiltrates and marrow edema. 08/21/2024 Patient is in the MICU. He had weaning trial yesterday and was placed on BiPAP until 6 PM and eventually he became more short of breath and obtunded. Patient was reintubated. Currently on assist-control with tidal volume 350 respiratory 20 FiO2 50% and PEEP of 5. Patient is also sedated and on tube feeding. Chest x-ray showed suboptimal study. Persisted low lung volumes and bilateral central opacities consistent with acute infiltrates and edema. Patient is on ceftriaxone empirically. Laboratory data showed WBC 7.9 hemoglobin 11.2 and platelets 161 sodium 136 potassium 3.2 chloride 103 bicarbonate 25 BUN less than 20 creatinine 0.15 and calcium 8.3. Critical care team is on board. Current medications reviewed. REVIEW OF SYSTEMS: Review of system cannot be obtained as patient currently intubated PHYSICAL EXAMINATION: GENERAL: The patient is intubated HEENT: Pupils are round and equally reacting to light. EOMI. No scleral icterus. No conjunctival pallor. Normocephalic, atraumatic. No pharyngeal erythema. No thyromegaly. CARDIOVASCULAR: S1 and S2 present. No murmurs, rubs, or gallops. PULMONARY: Coarse breath sound bilaterally, diminished at the bases ABDOMEN: Soft, nontender, nondistended, normoactive bowel sounds. No palpable organomegaly. MUSCULOSKELETAL: No joint swelling or deformity. EXTREMITIES: No cyanosis, clubbing, or pedal edema. NEUROLOGICAL: Intubated SKIN: No rashes. Assessment and plan Acute hypoxic respiratory failure likely secondary to right bronchial mucous plugging Possible bacterial pneumonia Sepsis secondary to above Status post brief cardiac arrest Lactic acidosis. Improved History of Duchenne's muscle dystrophy Chronic sinus tachycardia maintained on atenolol Seasonal allergic rhinitis Benign essential hypertension Monitor vital signs Monitor CBC Monitor CMP Continue telemetry monitoring Serial ABGs Continue vent management Serial chest x-rays Ordered breathing treatment Continue IV Rocephin Procalcitonin 0.53 Critical care team is on board. Continue with frequent suctioning. Labs and medication were reviewed.. Monitor labs and vitals. DVT and GI prophylaxis. Dictation was produced using [employer] dictation software. please excuse any grammatical, word or spelling errors. Objective - Vital Signs Vital signs: Vital Signs Temp 99.1 F 08/21/24 08:00 Pulse 121 H 08/21/24 13:00 Resp 20 08/21/24 13:00 BP 90/40 08/21/24 13:00 Pulse Ox 100 08/21/24 13:00 FiO2 50 08/21/24 12:18 Intake & Output 08/20/24 08/21/24 08/21/24 18:59 06:59 18:59 Intake Total 5037.737 2162.586 1107.497 Output Total 1235 1450 715 Balance 575.982 -74.414 392.497 Weight 75.4 kg 75.4 kg Intake: IV 1700 1250 700 Dextrose 5%-0.45% NaCl 1, 600 000 ml @ 100 mls/hr IV . Q10H [facility] Rx#:[id number] Dextrose 5%-0.45% NaCl 1, 500 1200 700 000 ml @ 100 mls/hr IV . Q10H [facility] Rx#:[id number] Potassium Chloride 10 meq 600 In Water For Injection 1 100ml.bag @ 100 mls/hr IVPB Q1H [facility] Rx#: [id number] cefTRIAXone 1 gm In 50 Sodium Chloride 0.9% 50 ml @ 100 mls/hr IVPB HS [facility] Rx#:[id number] Intake, IV Titration 110.982 125.586 183.497 Amount Dextrose 5%-0.45% NaCl 1, 100 000 ml @ 100 mls/hr IV . Q10H [facility] Rx#:[id number] propofoL 1,000 mg In 10.982 Empty Bag 1 bag @ 15 MCG/ KG/MIN 6.12 mls/hr IV . [id number] [facility] Rx#:[id number] propofoL 1,000 mg In 125.586 183.497 Empty Bag 1 bag @ 15 MCG/ KG/MIN 6.813 mls/hr IV . [id number] [facility] Rx#:[id number] Tube Feeding 74 Other 150 Output: Urine 1235 1450 715 Other: Voiding Method Indwelling Catheter Indwelling Catheter ABP, PAP, CO, CI - Last Documented Arterial Blood Pressure 66/40 - Labs CBC & Chem 7: 08/21/24 05:39 08/21/24 05:39 Labs: Abnormal Lab Results - Last 24 Hours (Table) 08/20/24 08/20/24 08/20/24 Range/Units 18:48 19:05 19:54 RBC (4.40-5.60) 10*6/uL Hgb (13.0-17.0) g/dL Hct (39.6-50.0) % Immature Gran # (0.00-0.04) 10*3/uL ABG pH 7.08 L* (7.35-7.45) ABG pCO2 >98 H* (35-45) mmHg ABG pO2 123 H (83-108) mmHg ABG O2 Saturation 97.8 H (94-97) % VBG pH (7.31-7.41) VBG pCO2 (37-51) mmHg Hemoglobin 12.6 L (13.0-17.5) gm/dL Sodium (137-145) mmol/L Potassium 5.5 H (3.5-5.1) mmol/L BUN (9-20) mg/dL Creatinine (0.66-1.25) mg/dL POC Glucose (mg/dL) 189 H (70-110) mg/dL Calcium (8.4-10.2) mg/dL 08/20/24 08/21/24 08/21/24 Range/Units 20:58 05:39 05:39 RBC 3.51 L (4.40-5.60) 10*6/uL Hgb 11.2 L (13.0-17.0) g/dL Hct 32.5 L (39.6-50.0) % Immature Gran # 0.05 H (0.00-0.04) 10*3/uL ABG pH (7.35-7.45) ABG pCO2 (35-45) mmHg ABG pO2 (83-108) mmHg ABG O2 Saturation (94-97) % VBG pH 7.30 L (7.31-7.41) VBG pCO2 (37-51) mmHg Hemoglobin (13.0-17.5) gm/dL Sodium 136 L (137-145) mmol/L Potassium 3.2 L (3.5-5.1) mmol/L BUN <2 L (9-20) mg/dL Creatinine <0.15 L (0.66-1.25) mg/dL POC Glucose (mg/dL) (70-110) mg/dL Calcium 8.3 L (8.4-10.2) mg/dL 08/21/24 08/21/24 Range/Units 05:39 11:40 RBC (4.40-5.60) 10*6/uL Hgb (13.0-17.0) g/dL Hct (39.6-50.0) % Immature Gran # (0.00-0.04) 10*3/uL ABG pH (7.35-7.45) ABG pCO2 (35-45) mmHg ABG pO2 (83-108) mmHg ABG O2 Saturation (94-97) % VBG pH 7.60 H* (7.31-7.41) VBG pCO2 26 L (37-51) mmHg Hemoglobin (13.0-17.5) gm/dL Sodium (137-145) mmol/L Potassium (3.5-5.1) mmol/L BUN (9-20) mg/dL Creatinine (0.66-1.25) mg/dL POC Glucose (mg/dL) 116 H (70-110) mg/dL Calcium (8.4-10.2) mg/dL
[2024-08-21 16:46] LABS: Glucose,Whole Blood 90 mg/dL (70-110)
[2024-08-22 00:42] LABS: Glucose,Whole Blood 98 mg/dL (70-110)
[2024-08-22 05:51] LABS: VBG PH 7.56 (7.31-7.41)
[2024-08-22 05:54] LABS: Glucose,Whole Blood 98 mg/dL (70-110)
[2024-08-22 06:00] LABS: HCT 32.9 % (39.6-50.0); HGB 11.2 g/dL (13.0-17.0); MCH 31.7 pg (27.0-32.0); MCV 93.2 fL (80.0-97.0); Mean Platelet Volume 10.3 fL (9.5-12.2); Platelet Count 176 10*3/uL (140-440); RBC 3.53 10*6/uL (4.40-5.60); RDW 13.2 % (11.5-14.5); WBC 7.76 10*3/uL (4.50-10.00)
[2024-08-22 06:07] LABS: Anion Gap 6 mmol/L; Blood Urea Nitrogen <2 mg/dL (9-20); Calcium 8.5 mg/dL (8.4-10.2); Carbon Dioxide 27 mmol/L (22-30); Chloride 105 mmol/L (98-107); Glucose 102 mg/dL (74-99); Potassium 3.7 mmol/L (3.5-5.1); Sodium 138 mmol/L (137-145)
[2024-08-22 06:09] LABS: African American GFR (CKD) >90 (>60 ml/min/1.73 sqM); Non-African American GFR(CKD) >90 (>60 ml/min/1.73 sqM)
[2024-08-22] MEDS: POTASSIUM BICARBONATE/CIT AC 20 MEQ TABLET.EFF NG-TUBE SCH (06:27)
--- NOTE | 2024-08-22 07:13 | XR ---
EXAMINATION TYPE: XR chest 1V portable DATE OF EXAM: 08/22/2024 CLINICAL INDICATION: Male, 24 years old with history of Tube placement, progress study. SOB. TECHNIQUE: Single AP portable upright view of the chest is obtained. COMPARISON: Chest x-ray from one day earlier and older studies. FINDINGS: Exam remains suboptimal due to patient's marked scoliosis. Stable low-lying endotracheal tube. Stable orogastric tube. Persistent low lung volumes and central increased opacities bilaterally. Cardiac silhouette size is o bscured. IMPRESSION: 1. Suboptimal study. 2. Persistent low lung volumes and bilateral central opacities consistent with acute infiltrates and/ or edema. [facility], , 08/22/2024 7:11 AM
[2024-08-22] MEDS ORDERED: HYDROmorphone 0.5 MG/0.5 ML SYRINGE IVP PRN (09:42)
[2024-08-22] MEDS ORDERED: HYDROmorphone 1 MG/ML 1 ML SYRINGE IVP PRN (09:45)
--- NOTE | 2024-08-22 10:18 | P.PN ---
Subjective Progress Note Date: 08/22/24 This is a 25-year-old white male known history of Duchenne muscular dystrophy, wheelchair-bound, nonambulatory, brought in last night to the emergency room, shortly after he had a cough episode, and patient had difficulty clearing his secretions according to his parents. Patient was noted to be gasping for air, then he was moved to his wheelchair and he started developing more gasping episodes. Then the patient went blue and unresponsive. EMS was brought in started CPR on the patient for about 5 minutes. Shortly after patient was noted to have return of spontaneous circulation, he was responsive, however he was still having difficulty breathing. Patient was Ambu bag and brought into the ER. Upon arrival, patient was intubated and mechanically ventilated. According to family the patient was not sick recently, he had no fever, no chills, and no sick contacts. No history of pulmonary embolism or DVT. Patient had extensive workup in the ER including a chest x-ray, CT angiogram of the chest, and CT of abdomen. CT angiogram of the chest showed no evidence of pulmonary embolism there was evidence however of small pneumomediastinum endotracheal tube was noted to be in proper positions. There was evidence of secretions within the right lower lobe and right middle lobe and atelectasis of the right middle lobe. No evidence of intra-abdominal process noted. And it confirmed orogastric tube in the stomach. Patient was placed empirically on antibiotics, I was notified about this patient, and I accepted the patient to be admitted to the ICU. Saw the patient today, he is on assist-control rate of 22 tidal volume 350 FiO2 was 50% and I cut it down to 40% PEEP of 5. ABG earlier today at 60% showed a pO2 of 158 pCO2 29 pH of 7.42. Patient is on propofol at 45 mcg/kg/min he is also on LR at 100 cc/h patient is normally on atenolol and he had a scopolamine patch applied because of excessive secretions through the endotracheal tube. Antibiotics chase patient is on Rocephin and Zithromax. Chest x-ray today is a very poor quality especially with his body habitus cannot tell much based on chest x-ray findings. Extremely suboptimal chest x-ray. I was about to consider weaning and extubation of this patient, however I noted that the patient had leukocytosis with WBC of 17.5, his electrolytes are reflecting anion gap metabolic acidosis with bicarb of 16 and anion gap of 17. Lactic acid was normal electrolytes were relatively unremarkable except for slightly low sodium and potassium, hence I will hold back on weaning today, the plan is to continue antibiotics, continue suctioning of secretions, and weaning to be addressed in the next 24 hours. I believe it is a bit too early to wean and extubate this patient at this point yet. 08/18/2024 patient seen and examined at bedside. Patient seen in the ICU intubated, sedated and on mechanical ventilation. No acute events overnight. Current ventilator settings volume control with a rate of 22, tidal volume 350, FiO2 40% and a PEEP of 5. Chest x-ray today showed severe thoracic deformity secondary to underlying scoliosis, improving aeration of the left, hazy density filling most of the right side suspected pleural effusion with underlying atelectasis and/or consolidation, ET tube estimated 1.7 to from the meir. Current drips propofol 50 mcg/kg/min, [id number] saline running at 100 cc/h. Currently on empiric antibiotics with ceftriaxone IVPB. Labs today: WBC 13.8, hemoglobin 11.9, platelet count 252,000, sodium 133, potassium 2.1, bicarb 21, BUN to creatinine less than 0.15, glucose 129, calcium 8.2. ABG showed pH 7.48, PCO2 23, PO2 115 08/19/2024 patient seen and examined at bedside in the ICU. Still currently intubated, sedated and on mechanical ventilation. No acute events overnight. Attempted SBT yesterday failed as patient became tachycardic, higher respiratory rate, NIF -6 and low tidal volumes during the trial. Current ventilator settings volume control with a rate of 22, tidal volume 350, FiO2 30% and a PEEP of 5. Current drips propofol 40 mcg/kg/min, [id number] saline running at 100 cc/h. Tube feeds at 40mL/hr. Currently on empiric antibiotics with ceftriaxone IVPB. Labs: WBC 10.3, hemoglobin 11.8, platelet count 253,000, sodium 137, potassium 4.1, bicarb 22, calcium 8.1, BUN 4, creatinine 0.15, glucose 99. ABG showed PO2 83, pCO2 33, pH 7.52, FiO2 30% Imaging; chest x-ray today showed stable aeration of the right and left lungs despite limited visualization due to patient's anatomy 08/20/2024 patient seen and examined at bedside in the ICU. Still currently int ubated, sedated and on mechanical ventilation. No acute events overnight. Attempted SBT yesterday and failed due to low tidal volumes and shallow breathing, increased respiratory rate with copius oral secretions. Current ventilator settings volume control with a rate of 20, tidal volume 350, FiO2 30% PEEP of 5. Propofol held at this time. Tube feeds held due to OG tube being disconnected. Labs: WBC 7.7, hemoglobin 10.2, platelet count 273,000, sodium 138, potassium 2.9, magnesium 1.5, bicarb 25, calcium 7.9, glucose 109, BUN 2, creatinine less than 0.15. ABG showed pO2 163, pCO2 26, pH 7.59 on FiO2 30%. Sputum culture negative. Imaging; chest x-ray showed low lying endotracheal tube, persistent low lung volumes of bilateral central opacities 08/21/2024 patient seen and examined at bedside in the ICU. DIS SBT attempted yesterday with marginal weaning parameters but patient's overall clinical status has improved and extubation was done. Patient's oxygenation requirements increased throughout the day, requiring BiPAP around 6pm and eventually requiring reintubation. Current mechanical ventilator settings volume control with a rate of 20, tidal volume 350, FiO2 50% and PEEP of 5. Current IV drip of propofol 40 mcg/kg/min. Tube feed vital high-protein at 10 mL/h. Labs: WBC 6.92, hemoglobin 11.2, platelet count 1 61,000, sodium 136, potassium 3.2, bicarb 25, BUN less than 2, creatinine less than 0.15, calcium 8.3, magnesium 2.1, glucose 92. VBG bicarb 26, CO2 26, pH 7.6. Imaging; chest x-ray today showed stable bilateral central opacities consistent with acute infiltrates/edema and low lung volumes 08/22/2024 patient seen and examined at bedside in the ICU. No acute events overnight. Attempted ART line placement yesterday but was not successful. Current mechanical ventilator settings volume control with a rate of 20, tidal volume 350, FiO2 50% and PEEP of 5. Current IV drip of propofol 35 mcg/kg/min. Tube feed vital high-protein at 32 mL/h. Labs: WBC 7.76, hemoglobin 11.2, sodium 138, potassium 3.7, bicarb 27, glucose 102, calcium 8.5, BUN less than 2, creatinine less than 0.15. VBG showed bicarb 27, CO2 30, pH 7.56 Imaging; chest x-ray showed persistent and stable bilateral central opacities with persistent lower lung volumes Review of systems: Unable to obtain at this time. Physical examination: Vital signs reviewed General: non toxic, no distress, looks appropriate for his age, sedated, intubated and on mechanical ventilation Derm: no unusual rashes/lesions, warm Head: atraumatic, normocephalic, symmetric Eyes: EOMI, anicteric sclera, pupils equal round reactive to light ENT: Nose and ears atraumatic Neck: No cervical lymphadenopathy, trachea midline, supple Mouth: no lip lesion, mucus membranes moist, ET and OG tube noted Cardiovascular: S1S2 tachycardic, no murmur Lungs: bibasilar fine rales, no accessory muscle use Abdominal: soft, nontender to palpation, no guarding Ext: muscle strength 5 out of 5 in all 4 extremities grossly, notable muscle atrophy and contractures, positive dorsalis pedis pulse bilateral, no edema Neuro: Cannot be obtained Psych: Cannot be obtained Assessment: Acute hypoxic respiratory failure most likely secondary to mucous plugging Right lower lobe and right middle lobe atelectasis, possible pneumonia c onsidering leukocytosis and metabolic acidosis, improved Sepsis secondary to above, resolved Brief cardiac arrest secondary to above Hypokalemia Hypomagnesemia, resolved Respiratory Alkalosis secondary to hypokalemia History of Duchenne muscular dystrophy Chronic sinus tachycardia maintained on atenolol Seasonal allergic rhinitis Benign essential hypertension Recommendation: Continue supplemental oxygenation with mechanical ventilation. Decreased RR to 16. Continue sedation with propofol IV Continue IVF D5-1/2 NS with 20mEq of K 75cc/hr Continue bronchodilators with DuoNeb Continue scopolomine patch to control secretions Currently on home atenolol 50mg twice daily Correct Potassium per protocol Continue suctioning of tracheal secretions Continue enteral feeding to goal rate DVT prophylaxis: Lovenox 40 mg subcu daily GI prophylaxis: Protonix 40 mg IVPB daily Prognosis: Discussed and reviewed with family at bedside his overall condition prognosis Will continue to follow Patient is critically ill and has significant comorbidities which may hinder the process of weaning and extubation successfully. Princess Finley MD PGY-1/Racking Machine Operator Dictation was produced using [employer] dictation software. please excuse any grammatical, word or spelling errors. Objective - Vital Signs Vital signs: Vital Signs Temp 99.1 F 08/22/24 04:00 Pulse 133 H 08/22/24 07:00 Resp 20 08/22/24 07:00 BP 98/55 08/22/24 07:00 Pulse Ox 100 08/22/24 07:00 FiO2 50 08/22/24 04:01 Intake & Output 08/21/24 08/22/24 08/22/24 18:59 06:59 18:59 Intake Total 4057.753 9916.849 132 Output Total 1775 1700 150 Balance 196.492 41.849 -18 Weight 75.4 kg 74.6 kg Intake: IV 1320 1100 100 Dextrose 5%-0.45% NaCl 1, 1300 1100 100 000 ml @ 100 mls/hr IV . Q10H [facility] Rx#:[id number] Invasive Line 5 20 Intake, IV Titration 269.492 199.849 Amount propofoL 1,000 mg In 269.492 199.849 Empty Bag 1 bag @ 15 MCG/ KG/MIN 6.813 mls/hr IV . [id number] [facility] Rx#:[id number] Tube Feeding 202 352 32 Other 180 90 Output: Urine 1775 1700 150 Other: Voiding Method Indwelling Catheter Indwelling Catheter ABP, PAP, CO, CI - Last Documented Arterial Blood Pressure 66/40 - Labs CBC & Chem 7: 08/22/24 05:25 08/22/24 05:25 Labs: Abnormal Lab Results - Last 24 Hours (Table) 08/21/24 08/21/24 08/22/24 Range/Units 11:40 16:52 05: RBC (4.40-5.60) 10*6/uL Hgb (13.0-17.0) g/dL Hct (39.6-50.0) % VBG pH 7.56 H (7.31-7.41) VBG pCO2 30 L (37-51) mmHg Potassium 6.0 H (3.5-5.1) mmol/L BUN (9-20) mg/dL Creatinine (0.66-1.25) mg/dL Glucose (74-99) mg/dL POC Glucose (mg/dL) 116 H (70-110) mg/dL 08/22/24 08/22/24 Range/Units 05:25 05:25 RBC 3.53 L (4.40-5.60) 10*6/uL Hgb 11.2 L (13.0-17.0) g/dL Hct 32.9 L (39.6-50.0) % VBG pH (7.31-7.41) VBG pCO2 (37-51) mmHg Potassium (3.5-5.1) mmol/L BUN <2 L (9-20) mg/dL Creatinine <0.15 L (0.66-1.25) mg/dL Glucose 102 H (74-99) mg/dL POC Glucose (mg/dL) (70-110) mg/dL
[2024-08-22] MEDS: D5-0.45% NACL WITH KCL 20MEQ/L 1,000 ML IV SCH (10:23)
[2024-08-22] MEDS ORDERED: KETOROLAC 15 MG/ML 1 ML VIAL IVP SCH (12:00)
[2024-08-22 12:23] LABS: Glucose,Whole Blood 90 mg/dL (70-110)
[2024-08-22 18:18] LABS: Glucose,Whole Blood 91 mg/dL (70-110)
[2024-08-22] MEDS: GLYCOPYRROLATE 0.2 MG/ML 2 ML VIAL IVP PRN (18:54)
[2024-08-23 00:07] LABS: Glucose,Whole Blood 103 mg/dL (70-110)
--- NOTE | 2024-08-23 06:26 | XR ---
EXAMINATION TYPE: XR chest 1V portable DATE OF EXAM: 08/23/2024 CLINICAL INDICATION: Male, 24 years old with history of Tube placement, progress study. TECHNIQUE: Single AP portable semiupright view of the chest is obtained. COMPARISON: Chest x-ray from one day earlier and older studies. FINDINGS: Current exam is more suboptimal due to patient's marked scoliosis and poor positioning. Stable orogastric tube. Poor visualization of endotracheal tube due to head down position blocking ti p. Persistent low lung volumes and central increased opacities bilaterally. Cardiac silhouette size is o bscured. IMPRESSION: 1. Markedly Suboptimal study. ET tube position not adequately evaluated. 2. Persistent low lung volumes and bilateral central opacities consistent with acute infiltrates and/ or edema. [facility], , 08/23/2024 6:24 AM
[2024-08-23 06:32] LABS: Glucose,Whole Blood 109 mg/dL (70-110)
--- NOTE | 2024-08-23 07:31 | P.PN ---
Subjective Progress Note Date: 08/22/24 24-year-old gentleman with past medical history significant for Duchenne muscular dystrophy who presents the ER from home for respiratory distress. Apparently patient was all right yesterday morning when while at home patient starting having cough and started having shortness of breath. Patient started gasping for air, patient went unresponsive, patient family started CPR and EMS was called. Patient had CPR for approximately 5 minutes. EMS arrived at the spot and bagged en route to the hospital. In the ER, patient was continued to have respiratory distress and was intubated Initial lab work done in the ER showed WBC 7.01, hemoglobin 14.2, platelet count 413 sodium 138, potassium 3.7, chloride 99, BUN 9, creatinine 0.19, glucose 215, lactate 7, AST 61, troponin 0.034 UA done showed no infection EKG done in the ER showed heart rate of , no ST segment elevation or depression seen, no T-wave inversions seen. Chest x-ray done in the ER showed endotracheal tube in the left main bronchus, retraction recommended of 2 to 3 cm. gaseous distention of bowel and stomach CT chest PE protocol done showed no evidence of PE, no evidence of bowel obstruction. Secretions in the right lower lobe and right middle lobe airways with atelectasis of the right middle lobe Patient admitted to internal medicine service 08/22/2024 --patient is seen and evaluated in room at bedside in the ICU. Remains on mechanical ventilator - Current IV drip of propofol 35 mcg/kg/min. Tube feed vital high-protein at 32 mL/h. Labs: WBC 7.76, hemoglobin 11.2, sodium 138, potassium 3.7, bicarb 27, glucose 102, calcium 8.5, BUN less than 2, creatinine less than 0.15. VBG showed bicarb 27, CO2 30, pH 7.56 -Chest x-ray showed persistent and stable bilateral central opacities with persistent lower lung volumes patient remains on mechanical ventilation; patient failed weaning trial yesterday; plan to continue with sedation with propofol; patient remains on bronchodilator nebulizer treatments Critical care on board Objective - Vital Signs Vital signs: Vital Signs Temp 99.9 F H 08/22/24 08:00 Pulse 118 H 08/22/24 09:30 Resp 16 08/22/24 09:30 BP 77/35 08/22/24 09:30 Pulse Ox 100 08/22/24 09:30 FiO2 50 08/22/24 08:31 Intake & Output 08/21/24 08/22/24 08/22/24 18:59 06:59 18:59 Intake Total 9410.569 6791.849 551.495 Output Total 1775 1700 240 Balance 196.492 41.849 311.495 Weight 75.4 kg 74.6 kg Intake: IV 1320 1100 300 Dextrose 5%-0.45% NaCl 1, 1300 1100 300 000 ml @ 100 mls/hr IV . Q10H [facility] Rx#:[id number] Invasive Line 5 20 Intake, IV Titration 269.492 199.849 95.495 Amount propofoL 1,000 mg In 269.492 199.849 95.495 Empty Bag 1 bag @ 15 MCG/ KG/MIN 6.813 mls/hr IV . [id number] [facility] Rx#:[id number] Tube Feeding 202 352 96 Other 180 90 60 Output: Urine 1775 1700 240 Other: Voiding Method Indwelling Catheter Indwelling Catheter Indwelling Catheter ABP, PAP, CO, CI - Last Documented Arterial Blood Pressure 66/40 - Exam GENERAL: The patient is intubated HEENT: Pupils are round and equally reacting to light. EOMI. No scleral icterus. No conjunctival pallor. Normocephalic, atraumatic. No pharyngeal erythema. No thyromegaly. CARDIOVASCULAR: S1 and S2 present. No murmurs, rubs, or gallops. PULMONARY: Coarse breath sound bilaterally, diminished at the bases ABDOMEN: Soft, nontender, nondistended, normoactive bowel sounds. No palpable organomegaly. MUSCULOSKELETAL: No joint swelling or deformity. EXTREMITIES: No cyanosis, clubbing, or pedal edema. NEUROLOGICAL: Intubated SKIN: No rashes. - Labs CBC & Chem 7: 08/22/24 05:25 08/22/24 14:50 Labs: Abnormal Lab Results - Last 24 Hours (Table) 08/21/24 08/21/24 08/22/24 Range/Units 11:40 16:52 05: RBC (4.40-5.60) 10*6/uL Hgb (13.0-17.0) g/dL Hct (39.6-50.0) % VBG pH 7.56 H (7.31-7.41) VBG pCO2 30 L (37-51) mmHg Potassium 6.0 H (3.5-5.1) mmol/L BUN (9-20) mg/dL Creatinine (0.66-1.25) mg/dL Glucose (74-99) mg/dL POC Glucose (mg/dL) 116 H (70-110) mg/dL 08/22/24 08/22/24 Range/Units 05:25 05:25 RBC 3.53 L (4.40-5.60) 10*6/uL Hgb 11.2 L (13.0-17.0) g/dL Hct 32.9 L (39.6-50.0) % VBG pH (7.31-7.41) VBG pCO2 (37-51) mmHg Potassium (3.5-5.1) mmol/L BUN <2 L (9-20) mg/dL Creatinine <0.15 L (0.66-1.25) mg/dL Glucose 102 H (74-99) mg/dL POC Glucose (mg/dL) (70-110) mg/dL Assessment and Plan Assessment: Acute hypoxic respiratory failure likely secondary to right bronchial mucous plugging Possible bacterial pneumonia Sepsis secondary to above Status post brief cardiac arrest Lactic acidosis. Improved History of Duchenne's muscle dystrophy Chronic sinus tachycardia maintained on atenolol Seasonal allergic rhinitis Benign essential hypertension Monitor vital signs Monitor CBC Monitor CMP Continue telemetry monitoring Serial ABGs Continue vent management Serial chest x-rays Ordered breathing treatment Continue IV Rocephin Procalcitonin 0.53 Critical care team is on board. Continue with frequent suctioning. Labs and medication were reviewed.. Monitor labs and vitals. DVT and GI prophylaxis.
[2024-08-23 07:57] LABS: Basophils # (A) 0.04 10*3/uL (0.00-0.10); Basophils % (A) 0.4 %; Eosinophils # (A) 0.17 10*3/uL (0.04-0.35); Eosinophils % (A) 1.8 %; HGB 10.7 g/dL (13.0-17.0); Lymphocytes # (A) 1.65 10*3/uL (0.90-5.00); Lymphocytes % (A) 17.5 %; MCH 31.3 pg (27.0-32.0); MCHC 32.4 g/dL (32.0-37.0); MCV 96.5 fL (80.0-97.0); Monocytes # (A) 1.13 10*3/uL (0.20-1.00); Neutrophils # (A) 6.39 10*3/uL (1.80-7.70); Neutrophils % (A) 67.8 %; Platelet Count 302 10*3/uL (140-440); RBC 3.42 10*6/uL (4.40-5.60); RDW 13.2 % (11.5-14.5); WBC 9.43 10*3/uL (4.50-10.00)
[2024-08-23 08:16] LABS: VBG PH 7.44 (7.31-7.41)
[2024-08-23 08:22] LABS: Anion Gap 4 mmol/L; Blood Urea Nitrogen 3 mg/dL (9-20); Calcium 8.5 mg/dL (8.4-10.2); Carbon Dioxide 31 mmol/L (22-30); Chloride 105 mmol/L (98-107); Glucose 129 mg/dL (74-99); Sodium 140 mmol/L (137-145)
[2024-08-23 08:35] LABS: African American GFR (CKD) >90 (>60 ml/min/1.73 sqM); Non-African American GFR(CKD) >90 (>60 ml/min/1.73 sqM)
--- NOTE | 2024-08-23 09:08 | P.PN ---
Subjective Progress Note Date: 08/23/24 This is a 25-year-old white male known history of Duchenne muscular dystrophy, wheelchair-bound, nonambulatory, brought in last night to the emergency room, shortly after he had a cough episode, and patient had difficulty clearing his secretions according to his parents. Patient was noted to be gasping for air, then he was moved to his wheelchair and he started developing more gasping episodes. Then the patient went blue and unresponsive. EMS was brought in started CPR on the patient for about 5 minutes. Shortly after patient was noted to have return of spontaneous circulation, he was responsive, however he was still having difficulty breathing. Patient was Ambu bag and brought into the ER. Upon arrival, patient was intubated and mechanically ventilated. According to family the patient was not sick recently, he had no fever, no chills, and no sick contacts. No history of pulmonary embolism or DVT. Patient had extensive workup in the ER including a chest x-ray, CT angiogram of the chest, and CT of abdomen. CT angiogram of the chest showed no evidence of pulmonary embolism there was evidence however of small pneumomediastinum endotracheal tube was noted to be in proper positions. There was evidence of secretions within the right lower lobe and right middle lobe and atelectasis of the right middle lobe. No evidence of intra-abdominal process noted. And it confirmed orogastric tube in the stomach. Patient was placed empirically on antibiotics, I was notified about this patient, and I accepted the patient to be admitted to the ICU. Saw the patient today, he is on assist-control rate of 22 tidal volume 350 FiO2 was 50% and I cut it down to 40% PEEP of 5. ABG earlier today at 60% showed a pO2 of 158 pCO2 29 pH of 7.42. Patient is on propofol at 45 mcg/kg/min he is also on LR at 100 cc/h patient is normally on atenolol and he had a scopolamine patch applied because of excessive secretions through the endotracheal tube. Antibiotics chase patient is on Rocephin and Zithromax. Chest x-ray today is a very poor quality especially with his body habitus cannot tell much based on chest x-ray findings. Extremely suboptimal chest x-ray. I was about to consider weaning and extubation of this patient, however I noted that the patient had leukocytosis with WBC of 17.5, his electrolytes are reflecting anion gap metabolic acidosis with bicarb of 16 and anion gap of 17. Lactic acid was normal electrolytes were relatively unremarkable except for slightly low sodium and potassium, hence I will hold back on weaning today, the plan is to continue antibiotics, continue suctioning of secretions, and weaning to be addressed in the next 24 hours. I believe it is a bit too early to wean and extubate this patient at this point yet. 08/18/2024 patient seen and examined at bedside. Patient seen in the ICU intubated, sedated and on mechanical ventilation. No acute events overnight. Current ventilator settings volume control with a rate of 22, tidal volume 350, FiO2 40% and a PEEP of 5. Chest x-ray today showed severe thoracic deformity secondary to underlying scoliosis, improving aeration of the left, hazy density filling most of the right side suspected pleural effusion with underlying atelectasis and/or consolidation, ET tube estimated 1.7 to from the meir. Current drips propofol 50 mcg/kg/min, L1-sbcu-tbnayc saline running at 100 cc/h. Currently on empiric antibiotics with ceftriaxone IVPB. Labs today: WBC 13.8, hemoglobin 11.9, platelet count 252,000, sodium 133, potassium 2.1, bicarb 21, BUN to creatinine less than 0.15, glucose 129, calcium 8.2. ABG showed pH 7.48, PCO2 23, PO2 115 08/19/2024 patient seen and examined at bedside in the ICU. Still currently intubated, sedated and on mechanical ventilation. No acute events overnight. Attempted SBT yesterday failed as patient became tachycardic, higher respiratory rate, NIF -6 and low tidal volumes during the trial. Current ventilator settings volume control with a rate of 22, tidal volume 350, FiO2 30% and a PEEP of 5. Current drips propofol 40 mcg/kg/min, M2-xbiu-idyvdg saline running at 100 cc/h. Tube feeds at 40mL/hr. Currently on empiric antibiotics with ceftriaxone IVPB. Labs: WBC 10.3, hemoglobin 11.8, platelet count 253,000, sodium 137, potassium 4.1, bicarb 22, calcium 8.1, BUN 4, creatinine 0.15, glucose 99. ABG showed PO2 83, pCO2 33, pH 7.52, FiO2 30% Imaging; chest x-ray today showed stable aeration of the right and left lungs despite limited visualization due to patient's anatomy 08/20/2024 patient seen and examined at bedside in the ICU. Still currently int ubated, sedated and on mechanical ventilation. No acute events overnight. Attempted SBT yesterday and failed due to low tidal volumes and shallow breathing, increased respiratory rate with copius oral secretions. Current ventilator settings volume control with a rate of 20, tidal volume 350, FiO2 30% PEEP of 5. Propofol held at this time. Tube feeds held due to OG tube being disconnected. Labs: WBC 7.7, hemoglobin 10.2, platelet count 273,000, sodium 138, potassium 2.9, magnesium 1.5, bicarb 25, calcium 7.9, glucose 109, BUN 2, creatinine less than 0.15. ABG showed pO2 163, pCO2 26, pH 7.59 on FiO2 30%. Sputum culture negative. Imaging; chest x-ray showed low lying endotracheal tube, persistent low lung volumes of bilateral central opacities 08/21/2024 patient seen and examined at bedside in the ICU. DIS SBT attempted yesterday with marginal weaning parameters but patient's overall clinical status has improved and extubation was done. Patient's oxygenation requirements increased throughout the day, requiring BiPAP around 6pm and eventually requiring reintubation. Current mechanical ventilator settings volume control with a rate of 20, tidal volume 350, FiO2 50% and PEEP of 5. Current IV drip of propofol 40 mcg/kg/min. Tube feed vital high-protein at 10 mL/h. Labs: WBC 6.92, hemoglobin 11.2, platelet count 1 61,000, sodium 136, potassium 3.2, bicarb 25, BUN less than 2, creatinine less than 0.15, calcium 8.3, magnesium 2.1, glucose 92. VBG bicarb 26, CO2 26, pH 7.6. Imaging; chest x-ray today showed stable bilateral central opacities consistent with acute infiltrates/edema and low lung volumes 08/22/2024 patient seen and examined at bedside in the ICU. No acute events overnight. Attempted ART line placement yesterday but was not successful. Current mechanical ventilator settings volume control with a rate of 20, tidal volume 350, FiO2 50% and PEEP of 5. Current IV drip of propofol 35 mcg/kg/min. Tube feed vital high-protein at 32 mL/h. Labs: WBC 7.76, hemoglobin 11.2, sodium 138, potassium 3.7, bicarb 27, glucose 102, calcium 8.5, BUN less than 2, creatinine less than 0.15. VBG showed bicarb 27, CO2 30, pH 7.56 Imaging; chest x-ray showed persistent and stable bilateral central opacities with persistent lower lung volumes 08/23/2024 patient seen and examined at bedside in the ICU. No acute events overnight. Current mechanical ventilator settings volume control with a rate of 16, tidal volume 350, FiO2 40% and PEEP of 5. Current IV drip of propofol 35 mcg/kg/min. Tube feed vital high-protein at 32 mL/h. Labs: WBC 9.4, hemoglobin 10.7, platelet count 302,000, sodium 140, potassium 4, bicarb 31, glucose 129, calcium 8.5, BUN 30, creatinine less than 0.15. VBG showed bicarb 31, CO2 46, pH 7.4 Imaging; chest x-ray today showed stable low lung volumes and bilateral central opacities Review of systems: Unable to obtain at this time. Physical examination: Vital signs reviewed General: non toxic, no distress, looks appropriate for his age, sedated, intubated and on mechanical ventilation Derm: no unusual rashes/lesions, warm Head: atraumatic, normocephalic, symmetric Eyes: EOMI, anicteric sclera, pupils equal round reactive to light ENT: Nose and ears atraumatic Neck: No cervical lymphadenopathy, trachea midline, supple Mouth: no lip lesion, mucus membranes moist, ET and OG tube noted Cardiovascular: S1S2 tachycardic, no murmur Lungs: bibasilar fine rales, no accessory muscle use Abdominal: soft, nontender to palpation, no guarding Ext: muscle strength 5 out of 5 in all 4 extremities grossly, notable muscle atrophy and contractures, positive dorsalis pedis pulse bilateral, no edema Neuro: Cannot be obtained Psych: Cannot be obtained Assessment: Acute hypoxic respiratory failure most likely secondary to mucous plugging Right lower lobe and right middle lobe atelectasis, possible pneumonia considering leukocytosis and metabolic acidosis, improved Sepsis secondary to above, resolved Brief cardiac arrest secondary to above Hypokalemia, resolved Hypomagnesemia, resolved Respiratory Alkalosis secondary to hypokalemia History of Duchenne muscular dystrophy Chronic sinus tachycardia maintained on atenolol Seasonal allergic rhinitis Benign essential hypertension Recommendation: Continue supplemental oxygenation with mechanical ventilation. Spontaneous breathing trial today Daily interruption of sedation Cardiac monitoring Increase IVF D5-1/2 NS with 20mEq of K 100 cc/hr Continue bronchodilators with DuoNeb Continue scopolomine patch to control secretions Currently on home atenolol 50mg twice daily Continue suctioning of tracheal secretions Continue enteral feeding to goal rate DVT prophylaxis: Lovenox 40 mg subcu daily GI prophylaxis: Protonix 40 mg IVPB daily Prognosis: Discussed and reviewed with family at bedside his overall condition prognosis Will continue to follow Patient is critically ill and has significant comorbidities which may hinder the process of weaning and extubation successfully. Princess Finley MD PGY-1/Supervisor Force Adjustment Dictation was produced using [employer] dictation software. please excuse any grammatical, word or spelling errors. Objective - Vital Signs Vital signs: Vital Signs Temp 98.9 F 08/23/24 04:00 Pulse 118 H 08/23/24 07:00 Resp 26 H 08/23/24 07:00 BP 80/42 08/23/24 07:00 Pulse Ox 100 08/23/24 07:00 FiO2 50 08/23/24 04:00 Intake & Output 08/22/24 08/23/24 08/23/24 18:59 06:59 18:59 Intake Total 1005.032 1410.1 107 Output Total 19995 200 Balance -309.892 -773.9 -93 Weight 74.8 kg Intake: IV 1000 900 75 D5-0.45% NaCl with KCl 600 900 75 20Meq/l 1,000 ml @ 75 mls /hr IV .[id number] [facility] Rx#: [id number] Dextrose 5%-0.45% NaCl 1, 400 000 ml @ 100 mls/hr IV . Q10H [facility] Rx#:[id number] Intake, IV Titration 186.108 177.1 Amount propofoL 1,000 mg In 186.108 177.1 Empty Bag 1 bag @ 15 MCG/ KG/MIN 6.813 mls/hr IV . [id number] [facility] Rx#:[id number] Tube Feeding 384 384 32 Other 120 90 Output: Urine 1999 2325 200 Other: Voiding Method Indwelling Catheter Indwelling Catheter ABP, PAP, CO, CI - Last Documented Arterial Blood Pressure 66/40 - Labs CBC & Chem 7: 08/23/24 07:39 08/23/24 07:39
[2024-08-23] MEDS: polyethylene glycoL 3350 17 GM POWD.PACK PO SCH (09:16)
[2024-08-23 11:29] LABS: Glucose,Whole Blood 117 mg/dL (70-110)
--- NOTE | 2024-08-23 13:09 | P.PN ---
Subjective Progress Note Date: 08/23/24 24-year-old gentleman with past medical history significant for Duchenne muscular dystrophy who presents the ER from home for respiratory distress. Apparently patient was all right yesterday morning when while at home patient starting having cough and started having shortness of breath. Patient started gasping for air, patient went unresponsive, patient family started CPR and EMS was called. Patient had CPR for approximately 5 minutes. EMS arrived at the spot and bagged en route to the hospital. In the ER, patient was continued to have respiratory distress and was intubated Initial lab work done in the ER showed WBC 7.01, hemoglobin 14.2, platelet count 413 sodium 138, potassium 3.7, chloride 99, BUN 9, creatinine 0.19, glucose 215, lactate 7, AST 61, troponin 0.034 UA done showed no infection EKG done in the ER showed heart rate of , no ST segment elevation or depression seen, no T-wave inversions seen. Chest x-ray done in the ER showed endotracheal tube in the left main bronchus, retraction recommended of 2 to 3 cm. gaseous distention of bowel and stomach CT chest PE protocol done showed no evidence of PE, no evidence of bowel obstruction. Secretions in the right lower lobe and right middle lobe airways with atelectasis of the right middle lobe Patient admitted to internal medicine service 08/22/2024 --patient is seen and evaluated in room at bedside in the ICU. Remains on mechanical ventilator - Current IV drip of propofol 35 mcg/kg/min. Tube feed vital high-protein at 32 mL/h. Labs: WBC 7.76, hemoglobin 11.2, sodium 138, potassium 3.7, bicarb 27, glucose 102, calcium 8.5, BUN less than 2, creatinine less than 0.15. VBG showed bicarb 27, CO2 30, pH 7.56 -Chest x-ray showed persistent and stable bilateral central opacities with persistent lower lung volumes patient remains on mechanical ventilation; patient failed weaning trial yesterday; plan to continue with sedation with propofol; patient remains on bronchodilator nebulizer treatments Critical care on board 08/23/2024 -patient is seen and evaluated in room at bedside in the ICU. Patient remains mechanical ventilator settings volume control with a rate of 16, tidal volume 350, FiO2 40% and PEEP of 5. -- Current IV drip of propofol 35 mcg/kg/min. Tube feed vital high-protein at 32 mL/h. Blood work reveals WBC 9.4, hemoglobin 10.7, platelet count 302,000, sodium 140, potassium 4, bicarb 31, glucose 129, calcium 8.5, BUN 30, creatinine less than 0.15. VBG showed bicarb 31, CO2 46, pH 7.4 Chest x-ray today showed stable low lung volumes and bilateral central opacities - Patient remains on mechanical ventilation with plans for daily interruption of sedation for weaning trial - Currently on IV fluids D5 half-normal saline with 20 mg of K and remains at 100 cc an hour - Continue with Protonix and Lovenox for GI and DVT prophylaxis Objective - Vital Signs Vital signs: Vital Signs Temp 98.9 F 08/23/24 04:00 Pulse 116 H 08/23/24 06:00 Resp 21 08/23/24 06:00 BP 86/41 08/23/24 06:00 Pulse Ox 99 08/23/24 06:00 FiO2 50 08/23/24 04:00 Intake & Output 08/22/24 08/23/24 08/23/24 18:59 06:59 18:59 Intake Total 3880.226 0345.1 Output Total 1999 2325 Balance -309.892 -773.9 Weight 74.8 kg Intake: IV 1000 900 D5-0.45% NaCl with KCl 600 900 20Meq/l 1,000 ml @ 75 mls /hr IV .[id number] [facility] Rx#: [id number] Dextrose 5%-0.45% NaCl 1, 400 000 ml @ 100 mls/hr IV . Q10H [facility] Rx#:[id number] Intake, IV Titration 186.108 177.1 Amount propofoL 1,000 mg In 186.108 177.1 Empty Bag 1 bag @ 15 MCG/ KG/MIN 6.813 mls/hr IV . [id number] [facility] Rx#:[id number] Tube Feeding 384 384 Other 120 90 Output: Urine 1999 2325 Other: Voiding Method Indwelling Catheter Indwelling Catheter ABP, PAP, CO, CI - Last Documented Arterial Blood Pressure 66/40 - Exam GENERAL: The patient is intubated HEENT: Pupils are round and equally reacting to light. EOMI. No scleral icterus. No conjunctival pallor. Normocephalic, atraumatic. No pharyngeal erythema. No thyromegaly. CARDIOVASCULAR: S1 and S2 present. No murmurs, rubs, or gallops. PULMONARY: Coarse breath sound bilaterally, diminished at the bases ABDOMEN: Soft, nontender, nondistended, normoactive bowel sounds. No palpable organomegaly. MUSCULOSKELETAL: No joint swelling or deformity. EXTREMITIES: No cyanosis, clubbing, or pedal edema. NEUROLOGICAL: Intubated SKIN: No rashes. - Labs CBC & Chem 7: 08/23/24 07:39 08/23/24 07:39 Assessment and Plan Assessment: Acute hypoxic respiratory failure likely secondary to right bronchial mucous plugging Possible bacterial pneumonia Sepsis secondary to above Status post brief cardiac arrest Lactic acidosis. Improved History of Duchenne's muscle dystrophy Chronic sinus tachycardia maintained on atenolol Seasonal allergic rhinitis Benign essential hypertension Monitor vital signs Monitor CBC Monitor CMP Continue telemetry monitoring Serial ABGs Continue vent management Serial chest x-rays Ordered breathing treatment Continue IV Rocephin Procalcitonin 0.53 Critical care team is on board. Continue with frequent suctioning. Labs and medication were reviewed.. Monitor labs and vitals. DVT and GI prophylaxis.
[2024-08-23 17:45] LABS: Glucose,Whole Blood 119 mg/dL (70-110)
[2024-08-23] MEDS: KETOROLAC 15 MG/ML 1 ML VIAL IVP PRN (20:49)
[2024-08-24 04:37] LABS: Basophils # (A) 0.04 10*3/uL (0.00-0.10); Basophils % (A) 0.5 %; Eosinophils # (A) 0.21 10*3/uL (0.04-0.35); Eosinophils % (A) 2.6 %; HCT 34.9 % (39.6-50.0); Lymphocytes # (A) 1.91 10*3/uL (0.90-5.00); Lymphocytes % (A) 24.1 %; MCH 31.3 pg (27.0-32.0); MCHC 31.5 g/dL (32.0-37.0); MCV 99.4 fL (80.0-97.0); Mean Platelet Volume 9.3 fL (9.5-12.2); Monocytes # (A) 0.91 10*3/uL (0.20-1.00); Monocytes % (A) 11.5 %; Neutrophils # (A) 4.82 10*3/uL (1.80-7.70); Neutrophils % (A) 60.8 %; Platelet Count 302 10*3/uL (140-440); RBC 3.51 10*6/uL (4.40-5.60); RDW 13.1 % (11.5-14.5); WBC 7.93 10*3/uL (4.50-10.00)
[2024-08-24 04:53] LABS: Anion Gap 6 mmol/L; Blood Urea Nitrogen 5 mg/dL (9-20); Calcium 8.7 mg/dL (8.4-10.2); Carbon Dioxide 28 mmol/L (22-30); Chloride 106 mmol/L (98-107); Glucose 103 mg/dL (74-99); Potassium 4.6 mmol/L (3.5-5.1); Sodium 140 mmol/L (137-145)
[2024-08-24 04:56] LABS: African American GFR (CKD) >90 (>60 ml/min/1.73 sqM); Non-African American GFR(CKD) >90 (>60 ml/min/1.73 sqM)
--- NOTE | 2024-08-24 05:46 | P.PN ---
Subjective Progress Note Date: 08/24/24 Principal diagnosis: Respiratory failure. This is a 25-year-old white male known history of Duchenne muscular dystrophy, wheelchair-bound, nonambulatory, brought in last night to the emergency room, shortly after he had a cough episode, and patient had difficulty clearing his se cretions according to his parents. Patient was noted to be gasping for air, then he was moved to his wheelchair and he started developing more gasping episodes. Then the patient went blue and unresponsive. EMS was brought in started CPR on the patient for about 5 minutes. Shortly after patient was noted to have return of spontaneous circulation, he was responsive, however he was still having difficulty breathing. Patient was Ambu bag and brought into the ER. Upon arrival, patient was intubated and mechanically ventilated. According to family the patient was not sick recently, he had no fever, no chills, and no sick contacts. No history of pulmonary embolism or DVT. Patient had extensive workup in the ER including a chest x-ray, CT angiogram of the chest, and CT of abdomen. CT angiogram of the chest showed no evidence of pulmonary embolism there was evidence however of small pneumomediastinum endotracheal tube was noted to be in proper positions. There was evidence of secretions within the right lower lobe and right middle lobe and atelectasis of the right middle lobe. No evidence of intra-abdominal process noted. And it confirmed orogastric tube in the stomach. Patient was placed empirically on antibiotics, I was notified about this patient, and I accepted the patient to be admitted to the ICU. Saw the patient today, he is on assist-control rate of 22 tidal volume 350 FiO2 was 50% and I cut it down to 40% PEEP of 5. ABG earlier today at 60% showed a pO2 of 158 pCO2 29 pH of 7.42. Patient is on propofol at 45 mcg/kg/min he is also on LR at 100 cc/h patient is normally on atenolol and he had a scopolamine patch applied because of excessive secretions through the endotracheal tube. Antibiotics chase patient is on Rocephin and Zithromax. Chest x-ray today is a very poor quality especially with his body habitus cannot tell much based on chest x-ray findings. Extremely suboptimal chest x-ray. I was about to consider weaning and extubation of this patient, however I noted that the patient had leukocytosis with WBC of 17.5, his electrolytes are reflecting anion gap metabolic acidosis with bicarb of 16 and anion gap of 17. Lactic acid was normal electrolytes were relatively unremarkable except for slightly low sodium and potassium, hence I will hold back on weaning today, the plan is to continue antibiotics, continue suctioning of secretions, and weaning to be addressed in the next 24 hours. I believe it is a bit too early to wean and extubate this patient at this point yet. 08/18/2024 patient seen and examined at bedside. Patient seen in the ICU intubated, sedated and on mechanical ventilation. No acute events overnight. Current ventilator settings volume control with a rate of 22, tidal volume 350, FiO2 40% and a PEEP of 5. Chest x-ray today showed severe thoracic deformity secondary to underlying scoliosis, improving aeration of the left, hazy density filling most of the right side suspected pleural effusion with underlying ate lectasis and/or consolidation, ET tube estimated 1.7 to from the meir. Current drips propofol 50 mcg/kg/min, [id number]-[id number] saline running at 100 cc/h. Currently on empiric antibiotics with ceftriaxone IVPB. Labs today: WBC 13.8, hemoglobin 11.9, platelet count 252,000, sodium 133, potassium 2.1, bicarb 21, BUN to creatinine less than 0.15, glucose 129, calcium 8.2. ABG showed pH 7.48, PCO2 23, PO2 115 08/19/2024 patient seen and examined at bedside in the ICU. Still currently intubated, sedated and on mechanical ventilation. No acute events overnight. Attempted SBT yesterday failed as patient became tachycardic, higher respiratory rate, NIF -6 and low tidal volumes during the trial. Current ventilator settings volume control with a rate of 22, tidal volume 350, FiO2 30% and a PEEP of 5. Current drips propofol 40 mcg/kg/min, S5-[id number]-[id number] saline running at 100 cc/h. Tube feeds at 40mL/hr. Currently on empiric antibiotics with ceftriaxone IVPB. Labs: WBC 10.3, hemoglobin 11.8, platelet count 253,000, sodium 137, potassium 4.1, bicarb 22, calcium 8.1, BUN 4, creatinine 0.15, glucose 99. ABG showed PO2 83, pCO2 33, pH 7.52, FiO2 30% Imaging; chest x-ray today showed stable aeration of the right and left lungs despite limited visualization due to patient's anatomy 08/20/2024 patient seen and examined at bedside in the ICU. Still currently intubated, sedated and on mechanical ventilation. No acute events overnight. Attempted SBT yesterday and failed due to low tidal volumes and shallow breathing, increased respiratory rate with copius oral secretions. Current ventilator settings volume control with a rate of 20, tidal volume 350, FiO2 30% PEEP of 5. Propofol held at this time. Tube feeds held due to OG tube being disconnected. Labs: WBC 7.7, hemoglobin 10.2, platelet count 273,000, sodium 138, potassium 2.9, magnesium 1.5, bicarb 25, calcium 7.9, glucose 109, BUN 2, creatinine less than 0.15. ABG showed pO2 163, pCO2 26, pH 7.59 on FiO2 30%. Sputum culture n egative. Imaging; chest x-ray showed low lying endotracheal tube, persistent low lung volumes of bilateral central opacities 08/21/2024 patient seen and examined at bedside in the ICU. DIS SBT attempted yesterday with marginal weaning parameters but patient's overall clinical status has improved and extubation was done. Patient's oxygenation requirements increased throughout the day, requiring BiPAP around 6pm and eventually requiring reintubation. Current mechanical ventilator settings volume control with a rate of 20, tidal volume 350, FiO2 50% and PEEP of 5. Current IV drip of propofol 40 mcg/kg/min. Tube feed vital high-protein at 10 mL/h. Labs: WBC 6.92, hemoglobin 11.2, platelet count 1 61,000, sodium 136, potassium 3.2, bicarb 25, BUN less than 2, creatinine less than 0.15, calcium 8.3, magnesium 2.1, glucose 92. VBG bicarb 26, CO2 26, pH 7.6. Imaging; chest x-ray today showed stable bilateral central opacities consistent with acute infiltrates/edema and low lung volumes 08/22/2024 patient seen and examined at bedside in the ICU. No acute events overnight. Attempted ART line placement yesterday but was not successful. Current mechanical ventilator settings volume control with a rate of 20, tidal volume 350, FiO2 50% and PEEP of 5. Current IV drip of propofol 35 mcg/kg/min. Tube feed vital high-protein at 32 mL/h. Labs: WBC 7.76, hemoglobin 11.2, sodium 138, potassium 3.7, bicarb 27, glucose 102, calcium 8.5, BUN less than 2, creatinine less than 0.15. VBG showed bicarb 27, CO2 30, pH 7.56 Imaging; chest x-ray showed persistent and stable bilateral central opacities with persistent lower lung volumes 08/23/2024 patient seen and examined at bedside in the ICU. No acute events overnight. Current mechanical ventilator settings volume control with a rate of 16, tidal volume 350, FiO2 40% and PEEP of 5. Current IV drip of propofol 35 mcg/kg/min. Tube feed vital high-protein at 32 mL/h. Labs: WBC 9.4, hemoglobin 10.7, platelet count 302,000, sodium 140, potassium 4, bicarb 31, glucose 129, calcium 8.5, BUN 30, creatinine less than 0.15. VBG showed bicarb 31, CO2 46, pH 7.4 Imaging; chest x-ray today showed stable low lung volumes and bilateral central opacities Progress note dated August 24, 2024. The patient is seen this morning, in room 254. He remains on volume assist- control, rate 16, tidal volume 350, FiO2 40%, PEEP of 5. He is receiving D5 with half-normal saline at 100 cc an hour, propofol at 40 mcg/kg/min, and vital high-protein at goal, which is 32 cc an hour. Laboratory data this morning includes a white count of 7.93, hemoglobin 11, hematocrit 34.9, and platelet count 302,000. Sodium 140, potassium 4.6, chlorides 106, CO2 28, anion gap 6, BUN 5, and creatinine less than 0.15. Glucose is 103. Calcium is 8.7. Chest x-ray again is suboptimal. Basilar atelectasis is noted. A portion of the stomach is in the chest cavity with an air-fluid level. His chest x-ray is largely unchanged. The patient was previously extubated on August 21, but required re-intubation on the same day. His daily weaning parameters are marginal. I did speak to the family about tracheostomy eventually. Objective - Vital Signs Vital signs: Vital Signs Temp 37.8 F L 08/24/24 04:00 Pulse 112 H 08/24/24 04:04 Resp 19 08/24/24 04:00 BP 111/68 08/24/24 04:00 Pulse Ox 97 08/24/24 04:00 FiO2 40 08/24/24 04:00 Intake & Output 08/23/24 08/23/24 08/24/24 06:59 18:59 06:59 Intake Total 1551.1 6640.638 0574.434 Output Total 2325 1580 1025 Balance -773.9 -19.262 498.434 Weight 74.8 kg 76 kg Intake: IV 900 1125 1000 D5-0.45% NaCl with KCl 900 1125 1000 20Meq/l 1,000 ml @ 100 mls/hr IV .Q10H [facility] Rx#: [id number] Intake, IV Titration 177.1 163.738 175.434 Amount propofoL 1,000 mg In 177.1 163.738 175.434 Empty Bag 1 bag @ 15 MCG/ KG/MIN 6.813 mls/hr IV . [id number] [facility] Rx#:[id number] Oral 240 Tube Feeding 384 32 288 Other 90 60 Output: Urine 2325 1580 1025 Other: Voiding Method Indwelling Catheter Indwelling Catheter Indwelling Catheter ABP, PAP, CO, CI - Last Documented Arterial Blood Pressure 66/40 - Exam No acute distress, sedated, with an orally placed endotracheal tube. HEENT examination is grossly unremarkable. Neck supple. Full range of motion. No adenopathy thyromegaly or neck vein dis tention. Cardiovascular examination reveals regular rhythm rate. S1-S2 normal. No S3 or S4. No discernible murmur noted. Heart sounds are distant. Lungs reveal scattered coarse rhonchi. No wheezes. No crackles. Abdomen soft with bowel sounds. No masses. Extremities are intact. The patient has significant contractures. Skin is without rash or lesion. Neurologic examination is unchanged. - Labs CBC & Chem 7: 08/24/24 04:16 08/24/24 04:16 Labs: Abnormal Lab Results - Last 24 Hours (Table) 08/23/24 08/23/24 08/23/24 Range/Units 07:39 07:39 08:02 RBC 3.42 L (4.40-5.60) 10*6/uL Hgb 10.7 L (13.0-17.0) g/dL Hct 33.0 L (39.6-50.0) % MCV (80.0-97.0) fL MCHC (32.0-37.0) g/dL MPV 9.0 L (9.5-12.2) fL Immature Gran # 0.05 H (0.00-0.04) 10*3/uL Monocytes # 1.13 H (0.20-1.00) 10*3/uL VBG pH 7.44 H (7.31-7.41) VBG HCO3 31 H (24-28) mmol/L Carbon Dioxide 31 H (22-30) mmol/L BUN 3 L (9-20) mg/dL Creatinine <0.15 L (0.66-1.25) mg/dL Glucose 129 H (74-99) mg/dL POC Glucose (mg/dL) (70-110) mg/dL 08/23/24 08/23/24 08/24/24 Range/Units 11:28 17:43 04:16 RBC 3.51 L (4.40-5.60) 10*6/uL Hgb 11.0 L (13.0-17.0) g/dL Hct 34.9 L (39.6-50.0) % MCV 99.4 H (80.0-97.0) fL MCHC 31.5 L (32.0-37.0) g/dL MPV 9.3 L (9.5-12.2) fL Immature Gran # (0.00-0.04) 10*3/uL Monocytes # (0.20-1.00) 10*3/uL VBG pH (7.31-7.41) VBG HCO3 (24-28) mmol/L Carbon Dioxide (22-30) mmol/L BUN (9-20) mg/dL Creatinine (0.66-1.25) mg/dL Glucose (74-99) mg/dL POC Glucose (mg/dL) 117 H 119 H (70-110) mg/dL 08/24/24 Range/Units 04:16 RBC (4.40-5.60) 10*6/uL Hgb (13.0-17.0) g/dL Hct (39.6-50.0) % MCV (80.0-97.0) fL MCHC (32.0-37.0) g/dL MPV (9.5-12.2) fL Immature Gran # (0.00-0.04) 10*3/uL Monocytes # (0.20-1.00) 10*3/uL VBG pH (7.31-7.41) VBG HCO3 (24-28) mmol/L Carbon Dioxide (22-30) mmol/L BUN 5 L (9-20) mg/dL Creatinine <0.15 L (0.66-1.25) mg/dL Glucose 103 H (74-99) mg/dL POC Glucose (mg/dL) (70-110) mg/dL Assessment and Plan Assessment: Acute hypoxemic respiratory failure, requiring intubation and mechanical ventilation (August 17, 2024), secondary to pneumonia, and mucous plugging. S/P extubation and reintubation, on August 21, 2024. Sepsis, resolved. Brief episode of cardiac arrest. History of Duchenne muscular dystrophy. Chronic sinus tachycardia. Benign essential hypertension. Seasonal allergic rhinitis. Plan: Plan dated August 24, 2024. The patient is seen today in room 254. The patient remains on volume assist- control, rate 16, tidal volume 350, FiO2 40%, PEEP of 5. The patient is currently sedated with propofol at 40 mcg/kg/min, and getting vital high-protein at 32 cc an hour which is goal. The patient is also getting dextrose with half- normal saline at 100 cc an hour. The patient has been having daily interruptions of sedation, and attempts at spontaneous breathing trials, but he does very poorly, with poor weaning parameters, and poor respiratory mechanics. The patient was initially intubated on August 17, and subsequently extubated on August 21, but required reintubation on the same day. I have talked to the family about tracheostomy tube insertion. Labs, x-rays, and medications are reviewed. We will continue to follow. Prognosis is guarded. Dictation was produced using logolineupation software. Please excuse any grammatical, word or spelling errors. Time with Patient: Greater than 30
--- NOTE | 2024-08-24 07:50 | XR ---
EXAMINATION TYPE: XR chest 1V portable DATE OF EXAM: 08/24/2024 5:10 AM COMPARISON: Chest radiograph from one day prior. CLINICAL INDICATION: Male, 24 years old with history of mechanically ventilated; [facility] TECHNIQUE: XR chest 1V portable Frontal view of the chest. FINDINGS: Lungs/Pleura: There is no evidence of pleural effusion, focal consolidation, or pneumothorax. Pulmonary vascularity: Unremarkable. Heart/mediastinum: Cardiomediastinal silhouette is unremarkable. Musculoskeletal: No acute osseous pathology. Other findings: None Lines/Tubes: Endotracheal tube with distal tip 2.5 cm above the meir. Nasogastric tube with distal tip projecting off the inferior aspect of the radiograph. IMPRESSION: 1. Poor positioning limits evaluation 2. Endotracheal tube in satisfactory position. 3. Nasogastric tube poorly visualized due to patient positioning. [facility], , 08/24/2024 7:47 AM
[2024-08-24 07:51] LABS: VBG PH 7.43 (7.31-7.41)
[2024-08-24] MEDS: LACTATED RINGERS 1,000 ML IV ONE (09:45)
[2024-08-24 11:53] LABS: Glucose,Whole Blood 117 mg/dL (70-110)
[2024-08-24 18:22] LABS: Glucose,Whole Blood 112 mg/dL (70-110)
--- NOTE | 2024-08-24 18:39 | P.PN ---
Subjective Progress Note Date: 08/24/24 24-year-old gentleman with past medical history significant for Duchenne muscular dystrophy who presents the ER from home for respiratory distress. Apparently patient was all right yesterday morning when while at home patient starting having cough and started having shortness of breath. Patient started gasping for air, patient went unresponsive, patient family started CPR and EMS was called. Patient had CPR for approximately 5 minutes. EMS arrived at the spot and bagged en route to the hospital. In the ER, patient was continued to have respiratory distress and was intubated Initial lab work done in the ER showed WBC 7.01, hemoglobin 14.2, platelet count 413 sodium 138, potassium 3.7, chloride 99, BUN 9, creatinine 0.19, glucose 215, lactate 7, AST 61, troponin 0.034 UA done showed no infection EKG done in the ER showed heart rate of , no ST segment elevation or depression seen, no T-wave inversions seen. Chest x-ray done in the ER showed endotracheal tube in the left main bronchus, retraction recommended of 2 to 3 cm. gaseous distention of bowel and stomach CT chest PE protocol done showed no evidence of PE, no evidence of bowel obstruction. Secretions in the right lower lobe and right middle lobe airways with atelectasis of the right middle lobe Patient admitted to internal medicine service 08/22/2024 --patient is seen and evaluated in room at bedside in the ICU. Remains on mechanical ventilator - Current IV drip of propofol 35 mcg/kg/min. Tube feed vital high-protein at 32 mL/h. Labs: WBC 7.76, hemoglobin 11.2, sodium 138, potassium 3.7, bicarb 27, glucose 102, calcium 8.5, BUN less than 2, creatinine less than 0.15. VBG showed bicarb 27, CO2 30, pH 7.56 -Chest x-ray showed persistent and stable bilateral central opacities with persistent lower lung volumes patient remains on mechanical ventilation; patient failed weaning trial yesterday; plan to continue with sedation with propofol; patient remains on bronchodilator nebulizer treatments Critical care on board 08/23/2024 -patient is seen and evaluated in room at bedside in the ICU. Patient remains mechanical ventilator settings volume control with a rate of 16, tidal volume 350, FiO2 40% and PEEP of 5. -- Current IV drip of propofol 35 mcg/kg/min. Tube feed vital high-protein at 32 mL/h. Blood work reveals WBC 9.4, hemoglobin 10.7, platelet count 302,000, sodium 140, potassium 4, bicarb 31, glucose 129, calcium 8.5, BUN 30, creatinine less than 0.15. VBG showed bicarb 31, CO2 46, pH 7.4 Chest x-ray today showed stable low lung volumes and bilateral central opacities - Patient remains on mechanical ventilation with plans for daily interruption of sedation for weaning trial - Currently on IV fluids D5 half-normal saline with 20 mg of K and remains at 100 cc an hour - Continue with Protonix and Lovenox for GI and DVT prophylaxis 08/24/2024 Patient is seen and evaluated at bedside in ICU; He remains on volume assist- control, rate 16, tidal volume 350, FiO2 40%, PEEP of 5. --He is receiving D5 with half-normal saline at 100 cc an hour, propofol at 40 mcg/kg/min, and vital high-protein at goal, which is 32 cc an hour. - Lab review shows white count of 7.93, hemoglobin 11, hematocrit 34.9, and platelet count 302,000. Sodium 140, potassium 4.6, chlorides 106, CO2 28, anion gap 6, BUN 5, and creatinine less than 0.15. Glucose is 103. Calcium is 8.7. Chest x-ray again is suboptimal. Basilar atelectasis is noted. A portion of the stomach is in the chest cavity with an air-fluid level. His chest x-ray is largely unchanged. The patient was previously extubated on August 21, but required re-intubation on the same day. His daily weaning parameters are marginal. Patient will require tracheostomy Objective - Vital Signs Vital signs: Vital Signs Temp 37.8 F L 08/24/24 04:00 Pulse 99 08/24/24 07:00 Resp 16 08/24/24 07:00 BP 94/53 08/24/24 07:00 Pulse Ox 100 08/24/24 07:00 FiO2 40 08/24/24 04:00 Intake & Output 08/23/24 08/24/24 08/24/24 18:59 06:59 18:59 Intake Total 2240.381 4056.803 Output Total 1580 1225 Balance -19.262 634.803 Weight 76 kg Intake: IV 1125 1200 D5-0.45% NaCl with KCl 1125 1200 20Meq/l 1,000 ml @ 100 mls/hr IV .Q10H [facility] Rx#: [id number] Intake, IV Titration 163.738 247.803 Amount propofoL 1,000 mg In 163.738 247.803 Empty Bag 1 bag @ 15 MCG/ KG/MIN 6.813 mls/hr IV . [id number] [facility] Rx#:[id number] Oral 240 Tube Feeding 32 352 Other 60 Output: Urine 1580 1225 Other: Voiding Method Indwelling Catheter Indwelling Catheter ABP, PAP, CO, CI - Last Documented Arterial Blood Pressure 66/40 - Exam GENERAL: The patient is intubated HEENT: Pupils are round and equally reacting to light. EOMI. No scleral icterus. No conjunctival pallor. Normocephalic, atraumatic. No pharyngeal erythema. No thyromegaly. CARDIOVASCULAR: S1 and S2 present. No murmurs, rubs, or gallops. PULMONARY: Coarse breath sound bilaterally, diminished at the bases ABDOMEN: Soft, nontender, nondistended, normoactive bowel sounds. No palpable organomegaly. MUSCULOSKELETAL: No joint swelling or deformity. EXTREMITIES: No cyanosis, clubbing, or pedal edema. NEUROLOGICAL: Intubated SKIN: No rashes. - Labs CBC & Chem 7: 08/24/24 04:16 08/24/24 04:16 Labs: Abnormal Lab Results - Last 24 Hours (Table) 08/23/24 08/23/24 08/23/24 Range/Units 07:39 07:39 08:02 RBC 3.42 L (4.40-5.60) 10*6/uL Hgb 10.7 L (13.0-17.0) g/dL Hct 33.0 L (39.6-50.0) % MCV (80.0-97.0) fL MCHC (32.0-37.0) g/dL MPV 9.0 L (9.5-12.2) fL Immature Gran # 0.05 H (0.00-0.04) 10*3/uL Monocytes # 1.13 H (0.20-1.00) 10*3/uL VBG pH 7.44 H (7.31-7.41) VBG HCO3 31 H (24-28) mmol/L Carbon Dioxide 31 H (22-30) mmol/L BUN 3 L (9-20) mg/dL Creatinine <0.15 L (0.66-1.25) mg/dL Glucose 129 H (74-99) mg/dL POC Glucose (mg/dL) (70-110) mg/dL 08/23/24 08/23/24 08/24/24 Range/Units 11:28 17:43 04:16 RBC 3.51 L (4.40-5.60) 10*6/uL Hgb 11.0 L (13.0-17.0) g/dL Hct 34.9 L (39.6-50.0) % MCV 99.4 H (80.0-97.0) fL MCHC 31.5 L (32.0-37.0) g/dL MPV 9.3 L (9.5-12.2) fL Immature Gran # (0.00-0.04) 10*3/uL Monocytes # (0.20-1.00) 10*3/uL VBG pH (7.31-7.41) VBG HCO3 (24-28) mmol/L Carbon Dioxide (22-30) mmol/L BUN (9-20) mg/dL Creatinine (0.66-1.25) mg/dL Glucose (74-99) mg/dL POC Glucose (mg/dL) 117 H 119 H (70-110) mg/dL 08/24/24 Range/Units 04:16 RBC (4.40-5.60) 10*6/uL Hgb (13.0-17.0) g/dL Hct (39.6-50.0) % MCV (80.0-97.0) fL MCHC (32.0-37.0) g/dL MPV (9.5-12.2) fL Immature Gran # (0.00-0.04) 10*3/uL Monocytes # (0.20-1.00) 10*3/uL VBG pH (7.31-7.41) VBG HCO3 (24-28) mmol/L Carbon Dioxide (22-30) mmol/L BUN 5 L (9-20) mg/dL Creatinine <0.15 L (0.66-1.25) mg/dL Glucose 103 H (74-99) mg/dL POC Glucose (mg/dL) (70-110) mg/dL Assessment and Plan Assessment: Acute hypoxic respiratory failure likely secondary to right bronchial mucous plugging Possible bacterial pneumonia Sepsis secondary to above Status post brief cardiac arrest Lactic acidosis. Improved History of Duchenne's muscle dystrophy Chronic sinus tachycardia maintained on atenolol Seasonal allergic rhinitis Benign essential hypertension Monitor vital signs Monitor CBC Monitor CMP Continue telemetry monitoring Serial ABGs Continue vent management Serial chest x-rays Ordered breathing treatment Continue IV Rocephin Procalcitonin 0.53 Critical care team is on board. Continue with frequent suctioning. Labs and medication were reviewed.. Monitor labs and vitals. DVT and GI prophylaxis.
[2024-08-24 21:15] LABS: Glucose,Whole Blood 140 mg/dL (70-110)
--- NOTE | 2024-08-24 21:52 | XR ---
EXAMINATION TYPE: XR chest 1V DATE OF EXAM: 08/24/2024 9:32 PM COMPARISON: Multiple radiographs, with the most recent on 08/24/2024 TECHNIQUE: XR chest 1V Portable AP radiograph of the chest. CLINICAL INDICATION:Male, 24 years old with history of SOB; FINDINGS: Lungs/Pleura: Low lung volumes. No sizable pleural effusion. No pneumothorax. Prominent perihilar opa cities. Heart/mediastinum: Cardiomediastinal silhouette is grossly unremarkable. Musculoskeletal: No acute osseous pathology. Marked S-shaped scoliotic curvature of the thoracolumbar spine. Other findings: None Lines/Tubes: Nasogastric tube with its distal tip and side-port projecting under the diaphragm and projecting over the gastric lumen. Gaseous stomach distention demonstrated. Interval removal of endotracheal tube. IMPRESSION: Limited visualization due to patient positioning and scoliotic curvature. 1. Low lung lines with prominent perihilar opacities suggesting pulmonary edema versus pneumonia bhaskar danyel atelectasis. 2. Interval removal of endotracheal tube. 3. NG tube appears to be in appropriate position with gaseous distention of the stomach. [facility], , 08/24/2024 9:49 PM
[2024-08-24 22:04] LABS: VBG PH 7.38 (7.31-7.41)
[2024-08-24] MEDS: ACETYLCYSTEINE 800 MG/4 ML VIAL INHALATION STA (23:19)
[2024-08-24 23:46] LABS: Glucose,Whole Blood 115 mg/dL (70-110)
[2024-08-25 05:50] LABS: Basophils # (A) 0.06 10*3/uL (0.00-0.10); Basophils % (A) 0.7 %; Eosinophils # (A) 0.32 10*3/uL (0.04-0.35); Eosinophils % (A) 3.9 %; HCT 35.5 % (39.6-50.0); HGB 11.2 g/dL (13.0-17.0); Lymphocytes # (A) 2.18 10*3/uL (0.90-5.00); Lymphocytes % (A) 26.3 %; MCH 31.8 pg (27.0-32.0); MCHC 31.5 g/dL (32.0-37.0); MCV 100.9 fL (80.0-97.0); Mean Platelet Volume 9.2 fL (9.5-12.2); Monocytes % (A) 13.3 %; Neutrophils # (A) 4.58 10*3/uL (1.80-7.70); Neutrophils % (A) 55.2 %; Platelet Count 349 10*3/uL (140-440); RBC 3.52 10*6/uL (4.40-5.60); RDW 13.2 % (11.5-14.5); WBC 8.29 10*3/uL (4.50-10.00)
[2024-08-25 06:41] LABS: Anion Gap 7 mmol/L; Blood Urea Nitrogen 4 mg/dL (9-20); Calcium 8.9 mg/dL (8.4-10.2); Carbon Dioxide 30 mmol/L (22-30); Chloride 102 mmol/L (98-107); Glucose 112 mg/dL (74-99); Potassium 4.7 mmol/L (3.5-5.1); Sodium 139 mmol/L (137-145)
[2024-08-25 06:45] LABS: African American GFR (CKD) >90 (>60 ml/min/1.73 sqM); Non-African American GFR(CKD) >90 (>60 ml/min/1.73 sqM)
--- NOTE | 2024-08-25 07:01 | XR ---
EXAMINATION TYPE: XR chest 1V portable DATE OF EXAM: 08/25/2024 5:18 AM COMPARISON: Chest radiograph from one day prior. CLINICAL INDICATION: Male, 24 years old with history of mechanically ventilated; [facility] TECHNIQUE: XR chest 1V portable Frontal view of the chest. FINDINGS: Lungs/Pleura: Low lung volumes are present. There is no evidence of pleural effusion, focal consolida tion, or pneumothorax. Pulmonary vascularity: Unremarkable. Heart/mediastinum: Cardiomediastinal silhouette is unremarkable. Musculoskeletal: No acute osseous pathology. Other findings: None Lines/Tubes: Nasogastric tube with distal tip projecting off the inferior aspect of the radiograph. IMPRESSION: Limited visualization due to patient positioning 1. Low lung volumes with perihilar opacities possibly representing pulmonary edema versus pneumonia versus atelectasis. 2. NG tube appears to be in appropriate position with gaseous distention of the stomach. [facility], , 08/25/2024 6:59 AM
[2024-08-25] MEDS: ACETYLCYSTEINE 800 MG/4 ML VIAL INHALATION SCH (07:44)
[2024-08-25] MEDS: HYDROmorphone 0.5 MG/0.5 ML SYRINGE IVP PRN (08:18)
[2024-08-25 09:55] LABS: ABG Oxygen Saturation 98.4 % (94-97); ABG PO2 126 mmHg (83-108); Allen Test Performed? Yes
[2024-08-25 09:59] LABS: ABG PH 7.15 (7.35-7.45)
[2024-08-25 10:00] LABS: ABG PCO2 >98 mmHg (35-45)
--- NOTE | 2024-08-25 12:11 | P.PN ---
Subjective Progress Note Date: 08/25/24 This is a 25-year-old white male known history of Duchenne muscular dystrophy, wheelchair-bound, nonambulatory, brought in last night to the emergency room, shortly after he had a cough episode, and patient had difficulty clearing his secretions according to his parents. Patient was noted to be gasping for air, then he was moved to his wheelchair and he started developing more gasping episodes. Then the patient went blue and unresponsive. EMS was brought in started CPR on the patient for about 5 minutes. Shortly after patient was noted to have return of spontaneous circulation, he was responsive, however he was still having difficulty breathing. Patient was Ambu bag and brought into the ER. Upon arrival, patient was intubated and mechanically ventilated. According to family the patient was not sick recently, he had no fever, no chills, and no sick contacts. No history of pulmonary embolism or DVT. Patient had extensive workup in the ER including a chest x-ray, CT angiogram of the chest, and CT of abdomen. CT angiogram of the chest showed no evidence of pulmonary embolism there was evidence however of small pneumomediastinum endotracheal tube was noted to be in proper positions. There was evidence of secretions within the right lower lobe and right middle lobe and atelectasis of the right middle lobe. No evidence of intra-abdominal process noted. And it confirmed orogastric tube in the stomach. Patient was placed empirically on antibiotics, I was notified about this patient, and I accepted the patient to be admitted to the ICU. Saw the patient today, he is on assist-control rate of 22 tidal volume 350 FiO2 was 50% and I cut it down to 40% PEEP of 5. ABG earlier today at 60% showed a pO2 of 158 pCO2 29 pH of 7.42. Patient is on propofol at 45 mcg/kg/min he is also on LR at 100 cc/h patient is normally on atenolol and he had a scopolamine patch applied because of excessive secretions through the endotracheal tube. Antibiotics chase patient is on Rocephin and Zithromax. Chest x-ray today is a very poor quality especially with his body habitus cannot tell much based on chest x-ray findings. Extremely suboptimal chest x-ray. I was about to consider weaning and extubation of this patient, however I noted that the patient had leukocytosis with WBC of 17.5, his electrolytes are reflecting anion gap metabolic acidosis with bicarb of 16 and anion gap of 17. Lactic acid was normal electrolytes were relatively unremarkable except for slightly low sodium and potassium, hence I will hold back on weaning today, the plan is to continue antibiotics, continue suctioning of secretions, and weaning to be addressed in the next 24 hours. I believe it is a bit too early to wean and extubate this patient at this point yet. 08/18/2024 patient seen and examined at bedside. Patient seen in the ICU intubated, sedated and on mechanical ventilation. No acute events overnight. Current ventilator settings volume control with a rate of 22, tidal volume 350, FiO2 40% and a PEEP of 5. Chest x-ray today showed severe thoracic deformity secondary to underlying scoliosis, improving aeration of the left, hazy density filling most of the right side suspected pleural effusion with underlying atelectasis and/or consolidation, ET tube estimated 1.7 to from the meir. Current drips propofol 50 mcg/kg/min, H4-xdrn-umvamo saline running at 100 cc/h. Currently on empiric antibiotics with ceftriaxone IVPB. Labs today: WBC 13.8, hemoglobin 11.9, platelet count 252,000, sodium 133, potassium 2.1, bicarb 21, BUN to creatinine less than 0.15, glucose 129, calcium 8.2. ABG showed pH 7.48, PCO2 23, PO2 115 08/19/2024 patient seen and examined at bedside in the ICU. Still currently intubated, sedated and on mechanical ventilation. No acute events overnight. A ttempted SBT yesterday failed as patient became tachycardic, higher respiratory rate, NIF -6 and low tidal volumes during the trial. Current ventilator settings volume control with a rate of 22, tidal volume 350, FiO2 30% and a PEEP of 5. Current drips propofol 40 mcg/kg/min, U4-bxlb-aiglar saline running at 100 cc/h. Tube feeds at 40mL/hr. Currently on empiric antibiotics with ceftriaxone IVPB. Labs: WBC 10.3, hemoglobin 11.8, platelet count 253,000, sodium 137, potassium 4.1, bicarb 22, calcium 8.1, BUN 4, creatinine 0.15, glucose 99. ABG showed PO2 83, pCO2 33, pH 7.52, FiO2 30% Imaging; chest x-ray today showed stable aeration of the right and left lungs despite limited visualization due to patient's anatomy 08/20/2024 patient seen and examined at bedside in the ICU. Still currently i ntubated, sedated and on mechanical ventilation. No acute events overnight. Attempted SBT yesterday and failed due to low tidal volumes and shallow breathing, increased respiratory rate with copius oral secretions. Current ventilator settings volume control with a rate of 20, tidal volume 350, FiO2 30% PEEP of 5. Propofol held at this time. Tube feeds held due to OG tube being disconnected. Labs: WBC 7.7, hemoglobin 10.2, platelet count 273,000, sodium 138, potassium 2.9, magnesium 1.5, bicarb 25, calcium 7.9, glucose 109, BUN 2, creatinine less than 0.15. ABG showed pO2 163, pCO2 26, pH 7.59 on FiO2 30%. Sputum culture negative. Imaging; chest x-ray showed low lying endotracheal tube, persistent low lung volumes of bilateral central opacities 08/21/2024 patient seen and examined at bedside in the ICU. DIS SBT attempted yesterday with marginal weaning parameters but patient's overall clinical status has improved and extubation was done. Patient's oxygenation requirements increased throughout the day, requiring BiPAP around 6pm and eventually requiring reintubation. Current mechanical ventilator settings volume control with a rate of 20, tidal volume 350, FiO2 50% and PEEP of 5. Current IV drip of propofol 40 mcg/kg/min. Tube feed vital high-protein at 10 mL/h. Labs: WBC 6.92, hemoglobin 11.2, platelet count 1 61,000, sodium 136, potassium 3.2, bicarb 25, BUN less than 2, creatinine less than 0.15, calcium 8.3, magnesium 2.1, glucose 92. VBG bicarb 26, CO2 26, pH 7.6. Imaging; chest x-ray today showed stable bilateral central opacities consistent with acute infiltrates/edema and low lung volumes 08/22/2024 patient seen and examined at bedside in the ICU. No acute events overnight. Attempted ART line placement yesterday but was not successful. Current mechanical ventilator settings volume control with a rate of 20, tidal volume 350, FiO2 50% and PEEP of 5. Current IV drip of propofol 35 mcg/kg/min. Tube feed vital high-protein at 32 mL/h. Labs: WBC 7.76, hemoglobin 11.2, sodium 138, potassium 3.7, bicarb 27, glucose 102, calcium 8.5, BUN less than 2, creatinine less than 0.15. VBG showed bicarb 27, CO2 30, pH 7.56 Imaging; chest x-ray showed persistent and stable bilateral central opacities with persistent lower lung volumes 08/23/2024 patient seen and examined at bedside in the ICU. No acute events overnight. Current mechanical ventilator settings volume control with a rate of 16, tidal volume 350, FiO2 40% and PEEP of 5. Current IV drip of propofol 35 mcg/kg/min. Tube feed vital high-protein at 32 mL/h. Labs: WBC 9.4, hemoglobin 10.7, platelet count 302,000, sodium 140, potassium 4, bicarb 31, glucose 129, calcium 8.5, BUN 30, creatinine less than 0.15. VBG showed bicarb 31, CO2 46, pH 7.4 Imaging; chest x-ray today showed stable low lung volumes and bilateral central opacities Progress note dated August 24, 2024. The patient is seen this morning, in room 254. He remains on volume assist- control, rate 16, tidal volume 350, FiO2 40%, PEEP of 5. He is receiving D5 with half-normal saline at 100 cc an hour, propofol at 40 mcg/kg/min, and vital high-protein at goal, which is 32 cc an hour. Laboratory data this morning includes a white count of 7.93, hemoglobin 11, hematocrit 34.9, and platelet count 302,000. Sodium 140, potassium 4.6, chlorides 106, CO2 28, anion gap 6, BUN 5, and creatinine less than 0.15. Glucose is 103. Calcium is 8.7. Chest x-ray again is suboptimal. Basilar atelectasis is noted. A portion of the stomach is in the chest cavity with an air-fluid level. His chest x-ray is largely unchanged. The patient was previously extubated on August 21, but required re-intubation on the same day. His daily weaning parameters are marginal. I did speak to the family about tracheostomy eventually. 08/25/2024, patient is being seen for a follow-up in the intensive care unit. Unresponsive, shallow rapid breathing while being on a BiPAP at a pressure of 14.5 cm of water and FiO2 of 90%. Tidal volume generators are barely above 200 with respiratory rate of 33 and a pulse ox of 92%. He has an NG tube in place. Not responsive to any painful or verbal stimulation. He is on D5 half-normal saline at rate of 100 cc an hour. Urine output is noted of 100 cc an hour. Fluid balance is +273. Blood work from today shows white cell count of 8.2 with a hemoglobin 11.2 and a platelet count of 349. Sodium is at 139 and a potassium level is at 4.7, bicarb is at 30 with a BUN of 40 and a creatinine of 0.15. Ca lcium is at 8.9. I inserted an arterial line and the blood gas showed a pH of 7.15 with a PCO2 of above 98 and pO2 128. Based on that, I intubated the patient with a #7.5 orotracheal tube. Following that, I performed bronchoscopy and moderate amount of thick respiratory secretions identified in the lower lung foster bilaterally and therapeutic airway suctioning was done. The patient remains hemodynamically stable. The patient is on no pressors. Objective - Vital Signs Vital signs: Vital Signs Temp 100.4 F H 08/25/24 04:00 Pulse 120 H 08/25/24 08:05 Resp 20 08/25/24 07:00 BP 97/57 08/25/24 07:00 Pulse Ox 91 L 08/25/24 07:44 FiO2 80 08/25/24 07:44 Intake & Output 08/24/24 08/25/24 08/25/24 18:59 06:59 18:59 Intake Total 2876.325 1542 132 Output Total 1945 2200 150 Balance 931.325 -658 -18 Weight 76.2 kg Intake: IV 2300 1100 100 D5-0.45% NaCl with KCl 1300 1100 100 20Meq/l 1,000 ml @ 100 mls/hr IV .Q10H ITZEL Rx#: [id number] Lactated Ringers 1,000 ml 1000 @ 999 mls/hr IV .Q1H1M ONE Rx#:[id number] Intake, IV Titration 70.325 Amount propofoL 1,000 mg In 70.325 Empty Bag 1 bag @ 15 MCG/ KG/MIN 6.813 mls/hr IV . [id number] ITZEL Rx#:[id number] Tube Feeding 416 352 32 Other 90 90 Output: Urine 1545 2200 150 Other 400 Other: Voiding Method Indwelling Catheter Indwelling Catheter ABP, PAP, CO, CI - Last Documented Arterial Blood Pressure 66/40 - Exam No acute distress, sedated, with an orally placed endotracheal tube.The patient has a 7.5 orotracheal tube. Sedated on propofol and the patient is calm and comfortable. The patient also argumentative in place. Body mass index of 31.7. He has a short stature. Significant muscle atrophy in all 4 extremities. Severe kyphoscoliosis of the thoracolumbar spine. HEENT examination is grossly unremarkable. Orogastric and orotracheal tube are both in place. Neck supple. Full range of motion. No adenopathy thyromegaly or neck vein distention. Cardiovascular examination reveals regular rhythm rate. S1-S2 normal. No S3 or S4. No discernible murmur noted. Heart sounds are distant. Lungs reveal scattered coarse rhonchi. No wheezes. No crackles. Diminished breath sounds bilateral especially lung bases Abdomen soft with bowel sounds. No masses. Extremities are intact. The patient has significant contractures. Skin is without rash or lesion. Neurologic examination is sedated on propofol and the patient is calm and comfo rtable. - Labs CBC & Chem 7: 08/25/24 05:37 08/25/24 05:37 Labs: Abnormal Lab Results - Last 24 Hours (Table) 08/24/24 08/24/24 08/24/24 Range/Units 06:42 11:51 18:21 RBC (4.40-5.60) 10*6/uL Hgb (13.0-17.0) g/dL Hct (39.6-50.0) % MCV (80.0-97.0) fL MCHC (32.0-37.0) g/dL MPV (9.5-12.2) fL Immature Gran # (0.00-0.04) 10*3/uL Monocytes # (0.20-1.00) 10*3/uL VBG pH 7.43 H (7.31-7.41) VBG HCO3 (24-28) mmol/L BUN (9-20) mg/dL Creatinine (0.66-1.25) mg/dL Glucose (74-99) mg/dL POC Glucose (mg/dL) 117 H 112 H (70-110) mg/dL 08/24/24 08/24/24 08/24/24 Range/Units 21:14 21:45 23:44 RBC (4.40-5.60) 10*6/uL Hgb (13.0-17.0) g/dL Hct (39.6-50.0) % MCV (80.0-97.0) fL MCHC (32.0-37.0) g/dL MPV (9.5-12.2) fL Immature Gran # (0.00-0.04) 10*3/uL Monocytes # (0.20-1.00) 10*3/uL VBG pH (7.31-7.41) VBG HCO3 29 H (24-28) mmol/L BUN (9-20) mg/dL Creatinine (0.66-1.25) mg/dL Glucose (74-99) mg/dL POC Glucose (mg/dL) 140 H 115 H (70-110) mg/dL 08/25/24 08/25/24 Range/Units 05:37 05:37 RBC 3.52 L (4.40-5.60) 10*6/uL Hgb 11.2 L (13.0-17.0) g/dL Hct 35.5 L (39.6-50.0) % MCV 100.9 H (80.0-97.0) fL MCHC 31.5 L (32.0-37.0) g/dL MPV 9.2 L (9.5-12.2) fL Immature Gran # 0.05 H (0.00-0.04) 10*3/uL Monocytes # 1.10 H (0.20-1.00) 10*3/uL VBG pH (7.31-7.41) VBG HCO3 (24-28) mmol/L BUN 4 L (9-20) mg/dL Creatinine <0.15 L (0.66-1.25) mg/dL Glucose 112 H (74-99) mg/dL POC Glucose (mg/dL) (70-110) mg/dL Assessment and Plan Plan: Acute on chronic hypoxic/hypercapnic respiratory failure with significant respiratory acidosis. The patient failed extubation twice. He was extubated for the second time on 08/24/2024 to be reintubated on 08/25/2024 for severe hypoxic and hypercapnic respiratory acidosis and signs of CO2 narcosis. Chest x-ray findings are consistent with severe kyphoscoliosis, elevated bilateral hemidiaphragms,And the patient has small lung volumes with perihilar opacities consistent with atelectasis/pneumonia/edema. NG tube is in a good location. Post bronchoscopy on 08/25/2024 and therapeutic airway suctioning was done and a BAL of the right lower lobe was also done. This is a case of severe muscle dystrophy along with significant restrictive lung disease secondary to neuromuscular weakness and severe kyphoscoliosis of the chest. Will discuss possibility of tracheostomy with the family. Diminished level of consciousness secondary to CO2 narcosis Sepsis, resolved. Postcardiopulmonary arrest, recovered Duchenne muscular dystrophy. Severe kyphoscoliosis of the thoracic spine Chronic sinus tachycardia, hemodynamically stable Benign essential hypertension. Seasonal allergic rhinitis. Plan: Start the patient back on propofol and titrate to maintain adequate sedation and synchrony with the mechanical ventilator I placed the patient on a tidal volume of 350 with a rate of 20 FiO2 of 100% and PEEP of 5. Blood to follow. Chest x-rays to follow Patient underwent bronchoscopy and a BAL of the right lower lobe. Moderate amount of respiratory crease were aspirated. Continue bronchodilators Continue enteral feeding for nutritional support and the patient is currently on vital HP D5 half-normal saline at rate of 100 cc an hour Adequate urine output No signs of any fluid overload Continue Lovenox for DVT prophylaxis Continue scopolamine and Robinul Dilaudid for pain control IV Protonix Had a lengthy discussion with the family regarding goals of treatment. The pat ient has failed extubation twice. Based on his underlying significant neuromuscular weakness related to Duchenne muscle dystrophy and severe kyphoscoliosis of the chest, it is reasonable to consider tracheostomy at a later stage for chronic respiratory care. May be a candidate for long-term/permanent ventilator. Will continue to follow. This evaluation was done and 45 minutes excluding time to do any procedures. Time with Patient: Greater than 30
--- NOTE | 2024-08-25 12:16 | P.PCN ---
Date of Procedure: 08/25/24 Preoperative Diagnosis: Acute on chronic hypoxic and hypercapnic respiratory failure Postoperative Diagnosis: Acute on chronic hypoxic and hypercapnic respiratory failure Procedure(s) Performed: Intubation Arterial line insertion Bronchoscopy and bronchoalveolar lavage of the right lower lobe Anesthesia: MAC Surgeon: Eloise Harper Estimated Blood Loss (ml): 0 Pathology: other Condition: critical Disposition: ICU Operative Findings: Arterial Line insertion Indication: Hemodynamic monitoring. A time-out was completed verifying correct patient, procedure, site, positioning, and implant(s) or special equipment if applicable. Allens test was performed to ensure adequate perfusion. The patients right was prepped and draped in sterile fashion. 1% Lidocaine was used to anesthetize the area. An 18G Arrow arterial line was introduced into the right radial artery. The catheter was threaded over the guide wire and the needle was removed with appropriate pulsatile blood return. Blood loss was minimal. The catheter was then sutured in place to the skin and a sterile dressing applied. Perfusion to the extremity distal to the point of catheter insertion was checked and found to be adequate. The patient tolerated the procedure well and there were no complications. Intubation Indication: Respiratory compromise. A time-out was completed verifying correct patient, procedure, site, positioning, and implant(s) or special equipment if applicable. The Glidoscope was used to complete this procedure The patient was positioned appropriately and a # 7.5 endotracheal tube was placed under direct laryngoscopy. The tube was anchored at 22 cm at the teeth. Correct placement was confirmed by presence of bilateral breath sounds without air sounds in the abdomen on auscultation. An end-tidal CO2 monitor was also used to confirm tracheal placement of the ET tube. A chest x-ray was ordered to assess for pneumothorax and verify endotracheal tube placement. The patient tolerated the procedure well and there were no complications. Bronchoscopy and a bronchioloalveolar lavage of the right lower lobe The procedure was done in the intensive care unit. The patient was already intubated and placed on a mechanical ventilator. Following that, as the patient was being adequately oxygenated and ventilated, the flexible bronchoscope was introduced through the orotracheal tube and was advanced to the lower trachea. The tip of the orotracheal tube was seen around 1 cm above the meir. The main meir was within normal limits. Bilateral mainstem bronchi were quite filled with respiratory strictures that were thick and tenacious. Therapeutic airway suctioning was done and airway inspection was completed. The visualized airways include the bilateral mainstem bronchi, right upper lobe bronchus, bronchus intermedius, right middle lobe and right lower lobe bronchus and the various 10 segments on the right and examination of the left side included left upper lobe bronchus and the left lower lobe bronchus and the various 8 segments on the left. There was obvious atelectatic change in the very segments of the lower lobes bilaterally and those segments were all filled with similar amount of respiratory secretions. Therapeutic airway suctioning was done. Following that, a bronchioloalveolar lavage of the right lower lobe was done with a total of 15 cc was aspirated after irrigating the right lower lobe anterior segment with 40 cc of saline. No complications Bronchoscope was removed and the samples were sent for microbial culture.
--- NOTE | 2024-08-25 12:23 | XR ---
EXAMINATION TYPE: XR chest 1V DATE OF EXAM: 08/25/2024 12:18 PM COMPARISON: Chest radiographs from 08/25/2024. CLINICAL INDICATION: Male, 24 years old with history of intubation with mechanical vent; [facility] TECHNIQUE: XR chest 1V Frontal view of the chest. FINDINGS: Nasogastric tube is thought to project over the stomach. Right-sided airspace opacities present. Lungs/Pleura: There is no evidence of pleural effusion, focal consolidation, or pneumothorax. Pulmonary vascularity: Unremarkable. Heart/mediastinum: Cardiomediastinal silhouette is unremarkable. Musculoskeletal: No acute osseous pathology. IMPRESSION: Poor positioning with nasogastric tube terminating over the expected location of the stomach. Right-sided airspace opacities correlate for pneumonia versus pulmonary edema. [facility], , 08/25/2024 12:21 PM
[2024-08-25 12:26] LABS: Glucose,Whole Blood 167 mg/dL (70-110)
[2024-08-25 12:37] LABS: ABG Base Excess 8.7 mmol/L; ABG HCO3 35 mmol/L (21-25); ABG Oxygen Saturation >100.0 % (94-97); ABG PCO2 59 mmHg (35-45); ABG PH 7.39 (7.35-7.45); ABG PO2 255 mmHg (83-108); ABG TCO2 37 mmol/L (19-24); Allen Test Performed? Yes
[2024-08-25] MEDS ORDERED: MD COMMUNICATION TO PHARMACY 1 EACH MISC PO PRN (16:46)
--- NOTE | 2024-08-25 17:33 | CA ---
Transthoracic Echo Report Name: Rubio Leigh Age: 24 Gender: M : 2000 Exam Date: 08/25/2024 10:48 Exam Location: [facility] Ht (in): 63 Wt (lb): 167 Ordering Physician: Eloise Harper MD Attending/Referring Phys: Negative Stripper Sherry Baker RDCS Procedure CPT: Indications: evaluate heart function Cardiac Hx: Musclur dystrophy Technical Quality: Fair Contrast 1: Total Dose (mL): Contrast 2: Total Dose (mL): MEASUREMENTS (Male / Female) Normal Values 2D ECHO LV Diastolic Diameter PLAX 3.5 cm 4.2 - 5.9 / 3.9 - 5.3 cm LV Systolic Diameter PLAX 2.1 cm IVS Diastolic Thickness 1.0 cm 0.6 - 1.0 / 0.6 - 0.9 cm LVPW Diastolic Thickness 0.8 cm 0.6 - 1.0 / 0.6 - 0.9 cm LV Relative Wall Thickness 0.5 RV Internal Dim ED PLAX 1.9 cm LVOT Diameter 1.7 cm Aortic Root Diameter 2.7 cm LA Systolic Diameter LX 2.5 cm 3.0 - 4.0 / 2.7 - 3.8 cm LV Diastolic Volume MOD BP 41.4 cm??? 67 - 155 / 56 - 104 cm??? LV Systolic Volume MOD BP 15.7 cm??? 22 - 58 / 19 - 49 cm??? LV Ejection Fraction MOD BP 62.2 % >= 55 % LV Cardiac Index MOD BP 1537.4 cm???/min???m??? LV Diastolic Volume MOD 4C 46.8 cm??? LV Systolic Volume MOD 4C 18.5 cm??? LV Ejection Fraction MOD 4C 60.4 % LV Cardiac Index MOD 4C 1685.5 cm???/min???m??? LV Diastolic Length 4C 6.1 cm LV Systolic Length 4C 5.7 cm LV Diastolic Volume MOD 2C 36.1 cm??? LV Systolic Volume MOD 2C 10.5 cm??? LV Ejection Fraction MOD 2C 70.9 % LV Cardiac Index MOD 2C 1527.7 cm???/min???m??? LV Diastolic Length 2C 5.9 cm LV Systolic Length 2C 4.4 cm LA Volume 40.4 cm??? 18 - 58 / 22 - 52 cm??? LA Volume Index 21.7 cm???/m??? 16 - 28 cm???/m??? DOPPLER TR Peak Velocity 237.3 cm/s TR Peak Gradient 22.5 mmHg FINDINGS Left Ventricle Left ventricular ejection fraction is estimated at 55-60 %. Normal left ventricular systolic function with no obvious regional wall motion abnormalities. Left ventricular cavity size normal. Left ventricular wall thickness normal. Right Ventricle Normal right ventricular size and function. Right ventricular systolic pressure within normal limits. Right Atrium Normal right atrial size. Left Atrium Normal left atrial size. Mitral Valve Structurally normal mitral valve. Trace mitral regurgitation. No mitral stenosis. Aortic Valve Trileaflet aortic valve. No aortic valve stenosis or regurgitation. Tricuspid Valve Structurally normal tricuspid valve. No tricuspid stenosis. Trace to mild tricuspid regurgitation. Pulmonic Valve Structurally normal pulmonic valve. Trace pulmonic regurgitation. No pulmonic stenosis. Pericardium No pericardial or pleural effusion. Aorta Normal size aortic root and proximal ascending aorta. CONCLUSIONS Normal LV size and systolic function. Minimal mitral regurgitation. No pulmonary hypertension. Mild tricuspid regurgitation no pericardial effusion Previewed by: Dr. Bing Pena MD (Electronically Signed) Final Date: 25 Aug 2024 17:32
[2024-08-25 17:44] LABS: Glucose,Whole Blood 106 mg/dL (70-110)
[2024-08-25] MEDS: DEXMEDETOMIDINE/0.9% NACL(PMX) 400 MCG in EMPTY BAG 1 BAG IV SCH (18:04)
[2024-08-26 00:05] LABS: Glucose,Whole Blood 117 mg/dL (70-110)
[2024-08-26 04:33] LABS: ABG Base Excess 6.4 mmol/L; ABG HCO3 31 mmol/L (21-25); ABG Oxygen Saturation 99.5 % (94-97); ABG PCO2 41 mmHg (35-45); ABG PH 7.48 (7.35-7.45); ABG PO2 118 mmHg (83-108); ABG TCO2 32 mmol/L (19-24)
[2024-08-26 04:34] LABS: Allen Test Performed? No
[2024-08-26 04:43] LABS: Basophils # (A) 0.03 10*3/uL (0.00-0.10); Basophils % (A) 0.4 %; Eosinophils # (A) 0.09 10*3/uL (0.04-0.35); Eosinophils % (A) 1.1 %; HCT 30.4 % (39.6-50.0); HGB 9.9 g/dL (13.0-17.0); Lymphocytes # (A) 2.03 10*3/uL (0.90-5.00); Lymphocytes % (A) 24.5 %; MCH 31.8 pg (27.0-32.0); MCHC 32.6 g/dL (32.0-37.0); MCV 97.7 fL (80.0-97.0); Mean Platelet Volume 8.8 fL (9.5-12.2); Monocytes % (A) 9.7 %; Neutrophils # (A) 5.25 10*3/uL (1.80-7.70); Neutrophils % (A) 63.5 %; Platelet Count 404 10*3/uL (140-440); RBC 3.11 10*6/uL (4.40-5.60); RDW 12.6 % (11.5-14.5); WBC 8.27 10*3/uL (4.50-10.00)
[2024-08-26 04:54] LABS: Anion Gap 3 mmol/L; Blood Urea Nitrogen 7 mg/dL (9-20); Calcium 8.6 mg/dL (8.4-10.2); Carbon Dioxide 30 mmol/L (22-30); Chloride 101 mmol/L (98-107); Glucose 123 mg/dL (74-99); Sodium 134 mmol/L (137-145)
[2024-08-26 05:04] LABS: African American GFR (CKD) >90 (>60 ml/min/1.73 sqM); Non-African American GFR(CKD) >90 (>60 ml/min/1.73 sqM)
[2024-08-26 05:18] LABS: Glucose,Whole Blood 124 mg/dL (70-110)
--- NOTE | 2024-08-26 07:11 | XR ---
EXAMINATION TYPE: XR chest 1V portable DATE OF EXAM: 08/26/2024 5:40 AM COMPARISON: Chest radiograph from one day prior. CLINICAL INDICATION: Male, 24 years old with history of mechanically ventilated; [facility] TECHNIQUE: XR chest 1V portable Frontal view of the chest. FINDINGS: Rotated exam limits evaluation. Lungs/Pleura: Elevated diaphragms as seen on prior CT. Haziness in the right lung possibly atelectasi s. Pulmonary vascularity: Unremarkable. Heart/mediastinum: Cardiomediastinal silhouette is unremarkable. Musculoskeletal: No acute osseous pathology. Scoliosis changes. Endotracheal tube tip 2.8 cm above the meir. Nasogastric tube distal tip terminating in the gastric lumen. IMPRESSION: Similar appearance of the lungs with endotracheal tube in satisfactory position. Nasogastric tube in satisfactory position. [facility], , 08/26/2024 7:08 AM
[2024-08-26] MEDS ORDERED: VANCOMYCIN IV PER PHARMACY 1 EACH MISC MISCELLANE PRN (07:48)
[2024-08-26] MEDS: PIPERACILLIN-TAZOBACTAM 3.375 GM in SODIUM CHLORIDE 0.9% 100 ML IVPB SCH (08:32)
[2024-08-26] MEDS: VANCOMYCIN 1,500 MG in SODIUM CHLORIDE 0.9% 500 ML 500 ML IVPB SCH (09:03)
--- NOTE | 2024-08-26 10:11 | P.PN ---
Subjective Progress Note Date: 08/26/24 This is a 25-year-old white male known history of Duchenne muscular dystrophy, wheelchair-bound, nonambulatory, brought in last night to the emergency room, shortly after he had a cough episode, and patient had difficulty clearing his secretions according to his parents. Patient was noted to be gasping for air, then he was moved to his wheelchair and he started developing more gasping episodes. Then the patient went blue and unresponsive. EMS was brought in started CPR on the patient for about 5 minutes. Shortly after patient was noted to have return of spontaneous circulation, he was responsive, however he was still having difficulty breathing. Patient was Ambu bag and brought into the ER. Upon arrival, patient was intubated and mechanically ventilated. According to family the patient was not sick recently, he had no fever, no chills, and no sick contacts. No history of pulmonary embolism or DVT. Patient had extensive workup in the ER including a chest x-ray, CT angiogram of the chest, and CT of abdomen. CT angiogram of the chest showed no evidence of pulmonary embolism there was evidence however of small pneumomediastinum endotracheal tube was noted to be in proper positions. There was evidence of secretions within the right lower lobe and right middle lobe and atelectasis of the right middle lobe. No evidence of intra-abdominal process noted. And it confirmed orogastric tube in the stomach. Patient was placed empirically on antibiotics, I was notified about this patient, and I accepted the patient to be admitted to the ICU. Saw the patient today, he is on assist-control rate of 22 tidal volume 350 FiO2 was 50% and I cut it down to 40% PEEP of 5. ABG earlier today at 60% showed a pO2 of 158 pCO2 29 pH of 7.42. Patient is on propofol at 45 mcg/kg/min he is also on LR at 100 cc/h patient is normally on atenolol and he had a scopolamine patch applied because of excessive secretions through the endotracheal tube. Antibiotics chase patient is on Rocephin and Zithromax. Chest x-ray today is a very poor quality especially with his body habitus cannot tell much based on chest x-ray findings. Extremely suboptimal chest x-ray. I was about to consider weaning and extubation of this patient, however I noted that the patient had leukocytosis with WBC of 17.5, his electrolytes are reflecting anion gap metabolic acidosis with bicarb of 16 and anion gap of 17. Lactic acid was normal electrolytes were relatively unremarkable except for slightly low sodium and potassium, hence I will hold back on weaning today, the plan is to continue antibiotics, continue suctioning of secretions, and weaning to be addressed in the next 24 hours. I believe it is a bit too early to wean and extubate this patient at this point yet. 08/18/2024 patient seen and examined at bedside. Patient seen in the ICU intubated, sedated and on mechanical ventilation. No acute events overnight. Current ventilator settings volume control with a rate of 22, tidal volume 350, FiO2 40% and a PEEP of 5. Chest x-ray today showed severe thoracic deformity secondary to underlying scoliosis, improving aeration of the left, hazy density filling most of the right side suspected pleural effusion with underlying atelectasis and/or consolidation, ET tube estimated 1.7 to from the meir. Current drips propofol 50 mcg/kg/min, [id number] saline running at 100 cc/h. Currently on empiric antibiotics with ceftriaxone IVPB. Labs today: WBC 13.8, hemoglobin 11.9, platelet count 252,000, sodium 133, potassium 2.1, bicarb 21, BUN to creatinine less than 0.15, glucose 129, calcium 8.2. ABG showed pH 7.48, PCO2 23, PO2 115 08/19/2024 patient seen and examined at bedside in the ICU. Still currently intubated, sedated and on mechanical ventilation. No acute events overnight. A ttempted SBT yesterday failed as patient became tachycardic, higher respiratory rate, NIF -6 and low tidal volumes during the trial. Current ventilator settings volume control with a rate of 22, tidal volume 350, FiO2 30% and a PEEP of 5. Current drips propofol 40 mcg/kg/min, [id number] saline running at 100 cc/h. Tube feeds at 40mL/hr. Currently on empiric antibiotics with ceftriaxone IVPB. Labs: WBC 10.3, hemoglobin 11.8, platelet count 253,000, sodium 137, potassium 4.1, bicarb 22, calcium 8.1, BUN 4, creatinine 0.15, glucose 99. ABG showed PO2 83, pCO2 33, pH 7.52, FiO2 30% Imaging; chest x-ray today showed stable aeration of the right and left lungs despite limited visualization due to patient's anatomy 08/20/2024 patient seen and examined at bedside in the ICU. Still currently i ntubated, sedated and on mechanical ventilation. No acute events overnight. Attempted SBT yesterday and failed due to low tidal volumes and shallow breathing, increased respiratory rate with copius oral secretions. Current ventilator settings volume control with a rate of 20, tidal volume 350, FiO2 30% PEEP of 5. Propofol held at this time. Tube feeds held due to OG tube being disconnected. Labs: WBC 7.7, hemoglobin 10.2, platelet count 273,000, sodium 138, potassium 2.9, magnesium 1.5, bicarb 25, calcium 7.9, glucose 109, BUN 2, creatinine less than 0.15. ABG showed pO2 163, pCO2 26, pH 7.59 on FiO2 30%. Sputum culture negative. Imaging; chest x-ray showed low lying endotracheal tube, persistent low lung volumes of bilateral central opacities 08/21/2024 patient seen and examined at bedside in the ICU. DIS SBT attempted yesterday with marginal weaning parameters but patient's overall clinical status has improved and extubation was done. Patient's oxygenation requirements increased throughout the day, requiring BiPAP around 6pm and eventually requiring reintubation. Current mechanical ventilator settings volume control with a rate of 20, tidal volume 350, FiO2 50% and PEEP of 5. Current IV drip of propofol 40 mcg/kg/min. Tube feed vital high-protein at 10 mL/h. Labs: WBC 6.92, hemoglobin 11.2, platelet count 1 61,000, sodium 136, potassium 3.2, bicarb 25, BUN less than 2, creatinine less than 0.15, calcium 8.3, magnesium 2.1, glucose 92. VBG bicarb 26, CO2 26, pH 7.6. Imaging; chest x-ray today showed stable bilateral central opacities consistent with acute infiltrates/edema and low lung volumes 08/22/2024 patient seen and examined at bedside in the ICU. No acute events overnight. Attempted ART line placement yesterday but was not successful. Current mechanical ventilator settings volume control with a rate of 20, tidal volume 350, FiO2 50% and PEEP of 5. Current IV drip of propofol 35 mcg/kg/min. Tube feed vital high-protein at 32 mL/h. Labs: WBC 7.76, hemoglobin 11.2, sodium 138, potassium 3.7, bicarb 27, glucose 102, calcium 8.5, BUN less than 2, creatinine less than 0.15. VBG showed bicarb 27, CO2 30, pH 7.56 Imaging; chest x-ray showed persistent and stable bilateral central opacities with persistent lower lung volumes 08/23/2024 patient seen and examined at bedside in the ICU. No acute events overnight. Current mechanical ventilator settings volume control with a rate of 16, tidal volume 350, FiO2 40% and PEEP of 5. Current IV drip of propofol 35 mcg/kg/min. Tube feed vital high-protein at 32 mL/h. Labs: WBC 9.4, hemoglobin 10.7, platelet count 302,000, sodium 140, potassium 4, bicarb 31, glucose 129, calcium 8.5, BUN 30, creatinine less than 0.15. VBG showed bicarb 31, CO2 46, pH 7.4 Imaging; chest x-ray today showed stable low lung volumes and bilateral central opacities Progress note dated August 24, 2024. The patient is seen this morning, in room 254. He remains on volume assist- control, rate 16, tidal volume 350, FiO2 40%, PEEP of 5. He is receiving D5 with half-normal saline at 100 cc an hour, propofol at 40 mcg/kg/min, and vital high-protein at goal, which is 32 cc an hour. Laboratory data this morning includes a white count of 7.93, hemoglobin 11, hematocrit 34.9, and platelet count 302,000. Sodium 140, potassium 4.6, chlorides 106, CO2 28, anion gap 6, BUN 5, and creatinine less than 0.15. Glucose is 103. Calcium is 8.7. Chest x-ray again is suboptimal. Basilar atelectasis is noted. A portion of the stomach is in the chest cavity with an air-fluid level. His chest x-ray is largely unchanged. The patient was previously extubated on August 21, but required re-intubation on the same day. His daily weaning parameters are marginal. I did speak to the family about tracheostomy eventually. 08/25/2024, patient is being seen for a follow-up in the intensive care unit. Unresponsive, shallow rapid breathing while being on a BiPAP at a pressure of 14.5 cm of water and FiO2 of 90%. Tidal volume generators are barely above 200 with respiratory rate of 33 and a pulse ox of 92%. He has an NG tube in place. Not responsive to any painful or verbal stimulation. He is on D5 half-normal saline at rate of 100 cc an hour. Urine output is noted of 100 cc an hour. Fluid balance is +273. Blood work from today shows white cell count of 8.2 with a hemoglobin 11.2 and a platelet count of 349. Sodium is at 139 and a potassium level is at 4.7, bicarb is at 30 with a BUN of 40 and a creatinine of 0.15. Ca lcium is at 8.9. I inserted an arterial line and the blood gas showed a pH of 7.15 with a PCO2 of above 98 and pO2 128. Based on that, I intubated the patient with a #7.5 orotracheal tube. Following that, I performed bronchoscopy and moderate amount of thick respiratory secretions identified in the lower lung foster bilaterally and therapeutic airway suctioning was done. The patient remains hemodynamically stable. The patient is on no pressors. 08/26/2024, the patient remains intubated on mechanical ventilator. The patient was taken off propofol and the patient seems to be calm and comfortable in symptoms mechanical ventilator while being on Precedex 0.3 mcg/kg/h. This morning, he is on assist-control mode of mechanical ventilation at rate of 20, tidal volume of 350, FiO2 50% with a PEEP of 5. Blood gases show a component of respiratory alkalosis with a pH of 7.48 and a pCO2 of 41 and PO2 of 118. Chest x-ray shows right lower lobe consolidation along with severe kyphoscoliosis of the spine. ET tube is in a good location. Bronchoscopy in the BAL was done and results are still pending for now. Meanwhile, going to cover the patient with empiric antibiotics. The patient is on D5 half-normal saline with potassium supplements at a rate of 100 cc an hour. He is on vital high-protein at rate of 32 cc an hour. Fluid balance is positive to 73 cc over the past 24 hours. Her white cell count of 8.2 with a hemoglobin of 0.9 and platelet count of 404. BUN is 7 with a creatinine of 0.15. Sodium is at 134 and potassium level is at 4. Objective - Vital Signs Vital signs: Vital Signs Temp 99.5 F 08/26/24 04:00 Pulse 90 08/26/24 06:00 Resp 22 08/26/24 06:00 BP 97/61 08/26/24 06:00 Pulse Ox 100 08/26/24 04:00 FiO2 50 08/26/24 06:00 Intake & Output 08/25/24 08/26/24 08/26/24 18:59 06:59 18:59 Intake Total 3864.819 5716 Output Total 1305 1150 Balance 480.367 602 Weight 76.2 kg 80.5 kg Intake: IV 1200 1336 D5-0.45% NaCl with KCl 1200 1300 20Meq/l 1,000 ml @ 100 mls/hr IV .Q10H [facility] Rx#: [id number] Pressure Bag 36 Intake, IV Titration 111.367 Amount Dexmedetomidine/0.9% NaCl 1.461 (Pmx) 400 mcg In Empty Bag 1 bag @ 0.2 MCG/KG/HR 3.81 mls/hr IV .Q24H [facility] Rx#:[id number] propofoL 1,000 mg In 109.906 Empty Bag 1 bag @ 15 MCG/ KG/MIN 6.858 mls/hr IV . [id number] [facility] Rx#:[id number] Tube Feeding 384 416 Other 90 Output: Urine 1305 1150 Other: Voiding Method Indwelling Catheter Indwelling Catheter ABP, PAP, CO, CI - Last Documented Arterial Blood Pressure 95/87 - Exam No acute distress, sedated, with an orally placed endotracheal tube.The patient has a 7.5 orotracheal tube. Sedated on Precedex and the patient is calm and comfortable. The patient also argumentative in place. Body mass index of 31.7. He has a short stature. Significant muscle atrophy in all 4 extremities. Severe kyphoscoliosis of the thoracolumbar spine. The patient is effectively sedated on Precedex HEENT examination is grossly unremarkable. Orogastric and orotracheal tube are both in place. Neck supple. Full range of motion. No adenopathy thyromegaly or neck vein distention. Cardiovascular examination reveals regular rhythm rate. S1-S2 normal. No S3 or S4. No discernible murmur noted. Heart sounds are distant. Lungs reveal scattered coarse rhonchi. No wheezes. No crackles. Diminished breath sounds bilateral especially lung bases Abdomen soft with bowel sounds. No masses. Extremities are intact. The patient has significant contractures. Skin is without rash or lesion. Neurologic examination is sedated on propofol and the patient is calm and comfortable. - Labs CBC & Chem 7: 08/26/24 04:30 08/26/24 04:30 Labs: Abnormal Lab Results - Last 24 Hours (Table) 08/25/24 08/25/24 08/25/24 Range/Units 09:50 12:24 12:30 RBC (4.40-5.60) 10*6/uL Hgb (13.0-17.0) g/dL Hct (39.6-50.0) % MCV (80.0-97.0) fL MPV (9.5-12.2) fL Immature Gran # (0.00-0.04) 10*3/uL ABG pH 7.15 L* (7.35-7.45) ABG pCO2 >98 H* 59 H (35-45) mmHg ABG pO2 126 H 255 H (83-108) mmHg ABG HCO3 35 H (21-25) mmol/L ABG Total CO2 37 H (19-24) mmol/L ABG O2 Saturation 98.4 H >100.0 H (94-97) % Hemoglobin 11.5 L 11.1 L (13.0-17.5) gm/dL Sodium (137-145) mmol/L BUN (9-20) mg/dL Creatinine (0.66-1.25) mg/dL Glucose (74-99) mg/dL POC Glucose (mg/dL) 167 H (70-110) mg/dL 08/26/24 08/26/24 08/26/24 Range/Units 00:04 04:30 04:30 RBC 3.11 L (4.40-5.60) 10*6/uL Hgb 9.9 L (13.0-17.0) g/dL Hct 30.4 L (39.6-50.0) % MCV 97.7 H (80.0-97.0) fL MPV 8.8 L (9.5-12.2) fL Immature Gran # 0.07 H (0.00-0.04) 10*3/uL ABG pH (7.35-7.45) ABG pCO2 (35-45) mmHg ABG pO2 (83-108) mmHg ABG HCO3 (21-25) mmol/L ABG Total CO2 (19-24) mmol/L ABG O2 Saturation (94-97) % Hemoglobin (13.0-17.5) gm/dL Sodium 134 L (137-145) mmol/L BUN 7 L (9-20) mg/dL Creatinine <0.15 L (0.66-1.25) mg/dL Glucose 123 H (74-99) mg/dL POC Glucose (mg/dL) 117 H (70-110) mg/dL 08/26/24 08/26/24 Range/Units 04:31 05:15 RBC (4.40-5.60) 10*6/uL Hgb (13.0-17.0) g/dL Hct (39.6-50.0) % MCV (80.0-97.0) fL MPV (9.5-12.2) fL Immature Gran # (0.00-0.04) 10*3/uL ABG pH 7.48 H (7.35-7.45) ABG pCO2 (35-45) mmHg ABG pO2 118 H (83-108) mmHg ABG HCO3 31 H (21-25) mmol/L ABG Total CO2 32 H (19-24) mmol/L ABG O2 Saturation 99.5 H (94-97) % Hemoglobin 10.1 L (13.0-17.5) gm/dL Sodium (137-145) mmol/L BUN (9-20) mg/dL Creatinine (0.66-1.25) mg/dL Glucose (74-99) mg/dL POC Glucose (mg/dL) 124 H (70-110) mg/dL Microbiology - Last 24 Hours (Table) 08/25/24 12:05 Gram Stain - Preliminary Bronchoalviolar Lavage - Right Assessment and Plan Plan: Acute on chronic hypoxic/hypercapnic respiratory failure with significant respiratory acidosis. The patient failed extubation twice. He was extubated for the second time on 08/24/2024 to be reintubated on 08/25/2024 for severe hypoxic and hypercapnic respiratory acidosis and signs of CO2 narcosis. Post bronchoscopy on 08/25/2024 and therapeutic airway suctioning was done and a BAL of the right lower lobe was also done. This is a case of severe muscle dystrophy along with significant restrictive lung disease secondary to neuromuscular weakness and severe kyphoscoliosis of the chest. Will discuss pos sibility of tracheostomy with the family. Follow-up chest x-ray from today shows a persistent consolidation of the right lower lobe. Lung volumes remain small and the blood gases showing a component of respiratory alkalosis. Diminished level of consciousness secondary to CO2 narcosis, improvement in acid-base status based on the most recent blood gas Sepsis, resolved. Postcardiopulmonary arrest, recovered Duchenne muscular dystrophy. Severe kyphoscoliosis of the thoracic spine Chronic sinus tachycardia, hemodynamically stable Benign essential hypertension. Seasonal allergic rhinitis. Plan: Continue ventilator support and dropped respiratory rate down to 14 and drop the FiO2 down to 40% Continue bronchodilators Cover the patient with broad-spectrum antibiotics pending the results of the BAL and the patient will be started on a combination of Zosyn and vancomycin Continue enteral feeding for nutritional support and the patient is currently on vital HP D5 half-normal saline at rate of 100 cc an hour Precedex for sedation Adequate urine output No signs of any fluid overload Continue Lovenox for DVT prophylaxis Continue scopolamine and Robinul Dilaudid for pain control IV Protonix Had a lengthy discussion with the family regarding goals of treatment. The patient has failed extubation twice. Based on his underlying significant neur omuscular weakness related to Duchenne muscle dystrophy and severe kyphoscoliosis of the chest, it is reasonable to consider tracheostomy at a later stage for chronic respiratory care. May be a candidate for long- term/permanent ventilator. Will continue to follow. Family has not made a final decision. This evaluation was done and 45 minutes excluding time to do any procedures. Time with Patient: Greater than 30
[2024-08-26 11:30] VITALS: BMI 33.5
[2024-08-26 11:45] LABS: Glucose,Whole Blood 123 mg/dL (70-110)
--- NOTE | 2024-08-26 16:05 | P.GSCN ---
History of Present Illness Consult date: 08/26/24 History of present illness: This is a 25-year-old white male known history of Duchenne muscular dystrophy, wheelchair-bound, nonambulatory, brought in to the emergency room, shortly after he had a cough episode, and patient had difficulty clearing his secretions according to his parents. Patient was noted to be gasping for air, then he was moved to his wheelchair and he started developing more gasping episodes. Then the patient went blue and unresponsive. EMS was brought in started CPR on the patient for about 5 minutes. Shortly after patient was noted to have return of spontaneous circulation, he was responsive, however he was still having difficulty breathing. Patient was Ambu bag and brought into the ER. Upon arrival, patient was intubated and mechanically ventilated. According to family the patient was not sick recently, he had no fever, no chills, and no sick contacts. Patient has been hospitalized for several days with multiple attempts at ext ubation. Surgery was consulted for tracheostomy and peg tube placement. Review of Systems - Constitutional Reports as per HPI Past Medical History Past Medical History: Musculoskeletal Disorder Additional Past Medical History / Comment(s): Seasonal allergies, CPAP HS, History of Any Multi-Drug Resistant Organisms: None Reported Past Surgical History: No Surgical Hx Reported Past Anesthesia/Blood Transfusion Reactions: No Reported Reaction Past Psychological History: No Psychological Hx Reported - Past Family History Father Family Medical History: Hypertension Medications and Allergies Home Medications Medication Instructions Recorded Confirmed Type Ascorbic Acid [Vitamin C] 1,000 mg PO DAILY 08/16/24 08/16/24 History Azelastine HCl [Astelin Nasal 1 spray EA NOSTRIL BID 08/16/24 08/16/24 History Drummonds] Cetirizine HCl [Zyrtec] 10 mg PO DAILY 08/16/24 08/16/24 History Inulin/Chromium Picolinate [Fiber 2 tab PO DAILY 08/16/24 08/16/24 History Gummies Chew] Multivitamins, Thera [Multivitamin 1 tab PO DAILY 08/16/24 08/16/24 History (formulary)] Neely-3/Dha/Epa/Fish Oil [Fish Oil 1 cap PO DAILY 08/16/24 08/16/24 History 1,000 mg Softgel] atenoloL [Tenormin] 25 mg PO DAILY 08/16/24 08/16/24 History lisinopriL [Zestril] 5 mg PO DAILY 08/16/24 08/16/24 History Allergies Allergy/AdvReac Type Severity Reaction Status Date / Time No Known Allergies Allergy Verified 08/16/24 19:56 Surgical - Exam Osteopathic Statement: *. No significant issues noted on an osteopathic structural exam other than those noted in the History and Physical/Consult. Vital Signs Temp Pulse Resp BP Pulse Ox 95 F L 51 L 30 H 198/121 87 L 08/16/24 17:35 08/16/24 17:35 08/16/24 17:35 08/16/24 17:35 08/16/24 17:35 gen: nad contracted cv: rrr pul: non labored on vent abd: soft, distended, non tender to palpation Results - Labs 08/26/24 04:30 08/26/24 04:30 Abnormal Lab Results - Last 24 Hours (Table) 08/26/24 08/26/24 08/26/24 Range/Units 00:04 04:30 04:30 RBC 3.11 L (4.40-5.60) 10*6/uL Hgb 9.9 L (13.0-17.0) g/dL Hct 30.4 L (39.6-50.0) % MCV 97.7 H (80.0-97.0) fL MPV 8.8 L (9.5-12.2) fL Immature Gran # 0.07 H (0.00-0.04) 10*3/uL ABG pH (7.35-7.45) ABG pO2 (83-108) mmHg ABG HCO3 (21-25) mmol/L ABG Total CO2 (19-24) mmol/L ABG O2 Saturation (94-97) % Hemoglobin (13.0-17.5) gm/dL Sodium 134 L (137-145) mmol/L BUN 7 L (9-20) mg/dL Creatinine <0.15 L (0.66-1.25) mg/dL Glucose 123 H (74-99) mg/dL POC Glucose (mg/dL) 117 H (70-110) mg/dL 08/26/24 08/26/24 08/26/24 Range/Units 04:31 05:15 11:43 RBC (4.40-5.60) 10*6/uL Hgb (13.0-17.0) g/dL Hct (39.6-50.0) % MCV (80.0-97.0) fL MPV (9.5-12.2) fL Immature Gran # (0.00-0.04) 10*3/uL ABG pH 7.48 H (7.35-7.45) ABG pO2 118 H (83-108) mmHg ABG HCO3 31 H (21-25) mmol/L ABG Total CO2 32 H (19-24) mmol/L ABG O2 Saturation 99.5 H (94-97) % Hemoglobin 10.1 L (13.0-17.5) gm/dL Sodium (137-145) mmol/L BUN (9-20) mg/dL Creatinine (0.66-1.25) mg/dL Glucose (74-99) mg/dL POC Glucose (mg/dL) 124 H 123 H (70-110) mg/dL Microbiology - Last 24 Hours (Table) 08/25/24 12:05 Gram Stain - Preliminary Bronchoalviolar Lavage - Right Bronchial Washings Culture - Preliminary Diabetes panel 08/26/24 Range/Units 04:30 Sodium 134 L (137-145) mmol/L Potassium 4.0 (3.5-5.1) mmol/L Chloride 101 (98-107) mmol/L Carbon Dioxide 30 (22-30) mmol/L BUN 7 L (9-20) mg/dL Creatinine <0.15 L (0.66-1.25) mg/dL Glucose 123 H (74-99) mg/dL Calcium 8.6 (8.4-10.2) mg/dL Calcium panel 08/26/24 Range/Units 04:30 Calcium 8.6 (8.4-10.2) mg/dL Pituitary panel 08/26/24 Range/Units 04:30 Sodium 134 L (137-145) mmol/L Potassium 4.0 (3.5-5.1) mmol/L Chloride 101 (98-107) mmol/L Carbon Dioxide 30 (22-30) mmol/L BUN 7 L (9-20) mg/dL Creatinine <0.15 L (0.66-1.25) mg/dL Glucose 123 H (74-99) mg/dL Calcium 8.6 (8.4-10.2) mg/dL Adrenal panel 08/26/24 Range/Units 04:30 Sodium 134 L (137-145) mmol/L Potassium 4.0 (3.5-5.1) mmol/L Chloride 101 (98-107) mmol/L Carbon Dioxide 30 (22-30) mmol/L BUN 7 L (9-20) mg/dL Creatinine <0.15 L (0.66-1.25) mg/dL Glucose 123 H (74-99) mg/dL Calcium 8.6 (8.4-10.2) mg/dL Assessment and Plan Assessment: 24 yo male muscular dystrophy failure to thrive -extensive discussion w/ mom regarding possible surgery, surgery will be difficult but possible. Discussed possible complications. Right now her and are on the fence about surgery. I recommend palliative care consult to help make the decision of surgery vs non surgical options. please call with questions Dr. Waite [phone] Surgery Time with Patient: Less than 30
[2024-08-26 18:31] LABS: Glucose,Whole Blood 150 mg/dL (70-110)
[2024-08-27 01:00] LABS: Glucose,Whole Blood 138 mg/dL (70-110)
[2024-08-27 03:32] LABS: Basophils # (A) 0.05 10*3/uL (0.00-0.10); Basophils % (A) 0.7 %; Eosinophils # (A) 0.16 10*3/uL (0.04-0.35); Eosinophils % (A) 2.3 %; HGB 10.1 g/dL (13.0-17.0); Lymphocytes # (A) 2.56 10*3/uL (0.90-5.00); Lymphocytes % (A) 37.5 %; MCH 31.5 pg (27.0-32.0); MCHC 31.6 g/dL (32.0-37.0); MCV 99.7 fL (80.0-97.0); Mean Platelet Volume 8.6 fL (9.5-12.2); Monocytes # (A) 0.69 10*3/uL (0.20-1.00); Monocytes % (A) 10.1 %; Neutrophils # (A) 3.33 10*3/uL (1.80-7.70); Neutrophils % (A) 48.8 %; Platelet Count 405 10*3/uL (140-440); RBC 3.21 10*6/uL (4.40-5.60); RDW 12.8 % (11.5-14.5); WBC 6.83 10*3/uL (4.50-10.00)
[2024-08-27 03:48] LABS: African American GFR (CKD) >90 (>60 ml/min/1.73 sqM); Anion Gap 8 mmol/L; Blood Urea Nitrogen 4 mg/dL (9-20); Calcium 8.9 mg/dL (8.4-10.2); Carbon Dioxide 27 mmol/L (22-30); Chloride 103 mmol/L (98-107); Glucose 117 mg/dL (74-99); Non-African American GFR(CKD) >90 (>60 ml/min/1.73 sqM); Sodium 138 mmol/L (137-145)
[2024-08-27 05:30] LABS: ABG Base Excess 5.1 mmol/L; ABG HCO3 30 mmol/L (21-25); ABG Oxygen Saturation 99.9 % (94-97); ABG PCO2 46 mmHg (35-45); ABG PH 7.43 (7.35-7.45); ABG PO2 159 mmHg (83-108); ABG TCO2 32 mmol/L (19-24)
[2024-08-27 05:37] LABS: Allen Test Performed? No
--- NOTE | 2024-08-27 05:42 | XR ---
EXAM: XR Chest, 1 View CLINICAL HISTORY: ITS.REASON XR Reason: NG tube placement TECHNIQUE: Frontal view of the chest. COMPARISON: No relevant prior studies available. FINDINGS/IMPRESSION: Examination is nondiagnostic due to patient positioning.
[2024-08-27 06:59] LABS: Glucose,Whole Blood 149 mg/dL (70-110)
[2024-08-27] MEDS: FUROSEMIDE 10 MG/ML 4 ML VIAL IV STA (08:24)
[2024-08-27] MEDS: FUROSEMIDE 10 MG/ML 2 ML VIAL IV STA (08:36)
[2024-08-27 10:23] LABS: ABG Base Excess 8.2 mmol/L; ABG HCO3 34 mmol/L (21-25); ABG Oxygen Saturation 99.3 % (94-97); ABG PCO2 56 mmHg (35-45); ABG PO2 123 mmHg (83-108); ABG TCO2 36 mmol/L (19-24); Allen Test Performed? Yes
--- NOTE | 2024-08-27 11:04 | P.PN ---
Subjective Progress Note Date: 08/27/24 SURGICAL PROGRESS NOTE CHIEF COMPLAINT: Respiratory failure HISTORY OF PRESENT ILLNESS: Patient remains in the ICU intubated and on mechanical ventilation. Patient being assessed again today per critical care if he can be weaned from the vent. Family is scheduled to talk to hospice for informational palliative care education. At this time family is undecided about trach and PEG. Afebrile. PHYSICAL EXAM: VITAL SIGNS: Reviewed. GENERAL: No acute distress, contracted ABDOMEN: Soft. Nondistended. Nontender. NEUROLOGIC: Awake ASSESSMENT: 1. Respiratory failure 2. Failure to thrive 3. History of Duchenne muscular dystrophy PLAN: - Consult placed for hospice/palliative care informational meeting - Awaiting family's decision regarding possible trach and PEG tube placement - Vent management per critical care service Physician [employer] Cutter Finisher note has been reviewed by physician. Signing provider agrees with the documented findings, assessment, and plan of care. Objective - Vital Signs Vital signs: Vital Signs Temp 98.3 F 08/27/24 08:00 Pulse 100 08/27/24 10:00 Resp 21 08/27/24 10:00 BP 82/49 08/27/24 10:00 Pulse Ox 100 08/27/24 10:00 FiO2 40 08/27/24 08:14 Intake & Output 08/26/24 08/27/24 08/27/24 18:59 06:59 18:59 Intake Total 2268.821 2221.431 1030.419 Output Total 1850 1700 1195 Balance 418.821 521.431 -164.581 Weight 80.5 kg 79.8 kg Intake: IV 1733 1733 952 D5-0.45% NaCl with KCl 1100 1100 340 20Meq/l 1,000 ml @ 40 mls /hr IV .Q24H [facility] Rx#: [id number] Piperacillin-Tazobactam 3 100 100 100 .375 gm In Sodium Chloride 0.9% 100 ml @ 25 mls/hr IVPB Q8HR [facility] Rx# :[id number] Pressure Bag 33 33 12 Vancomycin 1,500 mg In 500 500 500 Sodium Chloride 0.9% 500 ml 500 ml @ 167 mls/hr IVPB Q12H [facility] Rx#: [id number] Intake, IV Titration 93.821 140.431 46.419 Amount Dexmedetomidine/0.9% NaCl 93.821 140.431 46.419 (Pmx) 400 mcg In Empty Bag 1 bag @ 0.2 MCG/KG/HR 3.81 mls/hr IV .Q24H [facility] Rx#:[id number] Tube Feeding 352 288 32 Other 90 60 Output: Urine 1850 1700 1195 Other: Voiding Method Indwelling Catheter Indwelling Catheter Indwelling Catheter ABP, PAP, CO, CI - Last Documented Arterial Blood Pressure 98/48 - Labs CBC & Chem 7: 08/27/24 03:16 08/27/24 03:16 Labs: Abnormal Lab Results - Last 24 Hours (Table) 08/26/24 08/26/24 08/27/24 Range/Units 11:43 18:30 00:58 RBC (4.40-5.60) 10*6/uL Hgb (13.0-17.0) g/dL Hct (39.6-50.0) % MCV (80.0-97.0) fL MCHC (32.0-37.0) g/dL MPV (9.5-12.2) fL ABG pCO2 (35-45) mmHg ABG pO2 (83-108) mmHg ABG HCO3 (21-25) mmol/L ABG Total CO2 (19-24) mmol/L ABG O2 Saturation (94-97) % Hemoglobin (13.0-17.5) gm/dL BUN (9-20) mg/dL Creatinine (0.66-1.25) mg/dL Glucose (74-99) mg/dL POC Glucose (mg/dL) 123 H 150 H 138 H (70-110) mg/dL 08/27/24 08/27/24 08/27/24 Range/Units 03:16 03:16 05:28 RBC 3.21 L (4.40-5.60) 10*6/uL Hgb 10.1 L (13.0-17.0) g/dL Hct 32.0 L (39.6-50.0) % MCV 99.7 H (80.0-97.0) fL MCHC 31.6 L (32.0-37.0) g/dL MPV 8.6 L (9.5-12.2) fL ABG pCO2 46 H (35-45) mmHg ABG pO2 159 H (83-108) mmHg ABG HCO3 30 H (21-25) mmol/L ABG Total CO2 32 H (19-24) mmol/L ABG O2 Saturation 99.9 H (94-97) % Hemoglobin 10.2 L (13.0-17.5) gm/dL BUN 4 L (9-20) mg/dL Creatinine <0.15 L (0.66-1.25) mg/dL Glucose 117 H (74-99) mg/dL POC Glucose (mg/dL) (70-110) mg/dL 08/27/24 08/27/24 Range/Units 06:58 10:18 RBC (4.40-5.60) 10*6/uL Hgb (13.0-17.0) g/dL Hct (39.6-50.0) % MCV (80.0-97.0) fL MCHC (32.0-37.0) g/dL MPV (9.5-12.2) fL ABG pCO2 56 H (35-45) mmHg ABG pO2 123 H (83-108) mmHg ABG HCO3 34 H (21-25) mmol/L ABG Total CO2 36 H (19-24) mmol/L ABG O2 Saturation 99.3 H (94-97) % Hemoglobin 10.4 L (13.0-17.5) gm/dL BUN (9-20) mg/dL Creatinine (0.66-1.25) mg/dL Glucose (74-99) mg/dL POC Glucose (mg/dL) 149 H (70-110) mg/dL Microbiology - Last 24 Hours (Table) 08/25/24 12:05 Gram Stain - Final Bronchoalviolar Lavage - Right Bronchial Washings Culture - Final Assessment and Plan Assessment: had an extensive discussion w/ Mick/Shari no surgical intervention requested from family please call prn for intervention Time with Patient: Less than 30
[2024-08-27 12:03] LABS: Glucose,Whole Blood 109 mg/dL (70-110)
--- NOTE | 2024-08-27 12:50 | P.PN ---
Subjective Progress Note Date: 08/27/24 This is a 25-year-old white male known history of Duchenne muscular dystrophy, wheelchair-bound, nonambulatory, brought in last night to the emergency room, shortly after he had a cough episode, and patient had difficulty clearing his secretions according to his parents. Patient was noted to be gasping for air, then he was moved to his wheelchair and he started developing more gasping episodes. Then the patient went blue and unresponsive. EMS was brought in started CPR on the patient for about 5 minutes. Shortly after patient was noted to have return of spontaneous circulation, he was responsive, however he was still having difficulty breathing. Patient was Ambu bag and brought into the ER. Upon arrival, patient was intubated and mechanically ventilated. According to family the patient was not sick recently, he had no fever, no chills, and no sick contacts. No history of pulmonary embolism or DVT. Patient had extensive workup in the ER including a chest x-ray, CT angiogram of the chest, and CT of abdomen. CT angiogram of the chest showed no evidence of pulmonary embolism there was evidence however of small pneumomediastinum endotracheal tube was noted to be in proper positions. There was evidence of secretions within the right lower lobe and right middle lobe and atelectasis of the right middle lobe. No evidence of intra-abdominal process noted. And it confirmed orogastric tube in the stomach. Patient was placed empirically on antibiotics, I was notified about this patient, and I accepted the patient to be admitted to the ICU. Saw the patient today, he is on assist-control rate of 22 tidal volume 350 FiO2 was 50% and I cut it down to 40% PEEP of 5. ABG earlier today at 60% showed a pO2 of 158 pCO2 29 pH of 7.42. Patient is on propofol at 45 mcg/kg/min he is also on LR at 100 cc/h patient is normally on atenolol and he had a scopolamine patch applied because of excessive secretions through the endotracheal tube. Antibiotics chase patient is on Rocephin and Zithromax. Chest x-ray today is a very poor quality especially with his body habitus cannot tell much based on chest x-ray findings. Extremely suboptimal chest x-ray. I was about to consider weaning and extubation of this patient, however I noted that the patient had leukocytosis with WBC of 17.5, his electrolytes are reflecting anion gap metabolic acidosis with bicarb of 16 and anion gap of 17. Lactic acid was normal electrolytes were relatively unremarkable except for slightly low sodium and potassium, hence I will hold back on weaning today, the plan is to continue antibiotics, continue suctioning of secretions, and weaning to be addressed in the next 24 hours. I believe it is a bit too early to wean and extubate this patient at this point yet. 08/18/2024 patient seen and examined at bedside. Patient seen in the ICU intubated, sedated and on mechanical ventilation. No acute events overnight. Current ventilator settings volume control with a rate of 22, tidal volume 350, FiO2 40% and a PEEP of 5. Chest x-ray today showed severe thoracic deformity secondary to underlying scoliosis, improving aeration of the left, hazy density filling most of the right side suspected pleural effusion with underlying atelectasis and/or consolidation, ET tube estimated 1.7 to from the meir. Current drips propofol 50 mcg/kg/min, [id number] saline running at 100 cc/h. Currently on empiric antibiotics with ceftriaxone IVPB. Labs today: WBC 13.8, hemoglobin 11.9, platelet count 252,000, sodium 133, potassium 2.1, bicarb 21, BUN to creatinine less than 0.15, glucose 129, calcium 8.2. ABG showed pH 7.48, PCO2 23, PO2 115 08/19/2024 patient seen and examined at bedside in the ICU. Still currently intubated, sedated and on mechanical ventilation. No acute events overnight. A ttempted SBT yesterday failed as patient became tachycardic, higher respiratory rate, NIF -6 and low tidal volumes during the trial. Current ventilator settings volume control with a rate of 22, tidal volume 350, FiO2 30% and a PEEP of 5. Current drips propofol 40 mcg/kg/min, J5-[id number]-nswrhw saline running at 100 cc/h. Tube feeds at 40mL/hr. Currently on empiric antibiotics with ceftriaxone IVPB. Labs: WBC 10.3, hemoglobin 11.8, platelet count 253,000, sodium 137, potassium 4.1, bicarb 22, calcium 8.1, BUN 4, creatinine 0.15, glucose 99. ABG showed PO2 83, pCO2 33, pH 7.52, FiO2 30% Imaging; chest x-ray today showed stable aeration of the right and left lungs despite limited visualization due to patient's anatomy 08/20/2024 patient seen and examined at bedside in the ICU. Still currently i ntubated, sedated and on mechanical ventilation. No acute events overnight. Attempted SBT yesterday and failed due to low tidal volumes and shallow breathing, increased respiratory rate with copius oral secretions. Current ventilator settings volume control with a rate of 20, tidal volume 350, FiO2 30% PEEP of 5. Propofol held at this time. Tube feeds held due to OG tube being disconnected. Labs: WBC 7.7, hemoglobin 10.2, platelet count 273,000, sodium 138, potassium 2.9, magnesium 1.5, bicarb 25, calcium 7.9, glucose 109, BUN 2, creatinine less than 0.15. ABG showed pO2 163, pCO2 26, pH 7.59 on FiO2 30%. Sputum culture negative. Imaging; chest x-ray showed low lying endotracheal tube, persistent low lung volumes of bilateral central opacities 08/21/2024 patient seen and examined at bedside in the ICU. DIS SBT attempted yesterday with marginal weaning parameters but patient's overall clinical status has improved and extubation was done. Patient's oxygenation requirements increased throughout the day, requiring BiPAP around 6pm and eventually requiring reintubation. Current mechanical ventilator settings volume control with a rate of 20, tidal volume 350, FiO2 50% and PEEP of 5. Current IV drip of propofol 40 mcg/kg/min. Tube feed vital high-protein at 10 mL/h. Labs: WBC 6.92, hemoglobin 11.2, platelet count 1 61,000, sodium 136, potassium 3.2, bicarb 25, BUN less than 2, creatinine less than 0.15, calcium 8.3, magnesium 2.1, glucose 92. VBG bicarb 26, CO2 26, pH 7.6. Imaging; chest x-ray today showed stable bilateral central opacities consistent with acute infiltrates/edema and low lung volumes 08/22/2024 patient seen and examined at bedside in the ICU. No acute events overnight. Attempted ART line placement yesterday but was not successful. Current mechanical ventilator settings volume control with a rate of 20, tidal volume 350, FiO2 50% and PEEP of 5. Current IV drip of propofol 35 mcg/kg/min. Tube feed vital high-protein at 32 mL/h. Labs: WBC 7.76, hemoglobin 11.2, sodium 138, potassium 3.7, bicarb 27, glucose 102, calcium 8.5, BUN less than 2, creatinine less than 0.15. VBG showed bicarb 27, CO2 30, pH 7.56 Imaging; chest x-ray showed persistent and stable bilateral central opacities with persistent lower lung volumes 08/23/2024 patient seen and examined at bedside in the ICU. No acute events overnight. Current mechanical ventilator settings volume control with a rate of 16, tidal volume 350, FiO2 40% and PEEP of 5. Current IV drip of propofol 35 mcg/kg/min. Tube feed vital high-protein at 32 mL/h. Labs: WBC 9.4, hemoglobin 10.7, platelet count 302,000, sodium 140, potassium 4, bicarb 31, glucose 129, calcium 8.5, BUN 30, creatinine less than 0.15. VBG showed bicarb 31, CO2 46, pH 7.4 Imaging; chest x-ray today showed stable low lung volumes and bilateral central opacities Progress note dated August 24, 2024. The patient is seen this morning, in room 254. He remains on volume assist- control, rate 16, tidal volume 350, FiO2 40%, PEEP of 5. He is receiving D5 with half-normal saline at 100 cc an hour, propofol at 40 mcg/kg/min, and vital high-protein at goal, which is 32 cc an hour. Laboratory data this morning includes a white count of 7.93, hemoglobin 11, hematocrit 34.9, and platelet count 302,000. Sodium 140, potassium 4.6, chlorides 106, CO2 28, anion gap 6, BUN 5, and creatinine less than 0.15. Glucose is 103. Calcium is 8.7. Chest x-ray again is suboptimal. Basilar atelectasis is noted. A portion of the stomach is in the chest cavity with an air-fluid level. His chest x-ray is largely unchanged. The patient was previously extubated on August 21, but required re-intubation on the same day. His daily weaning parameters are marginal. I did speak to the family about tracheostomy eventually. 08/25/2024, patient is being seen for a follow-up in the intensive care unit. Unresponsive, shallow rapid breathing while being on a BiPAP at a pressure of 14.5 cm of water and FiO2 of 90%. Tidal volume generators are barely above 200 with respiratory rate of 33 and a pulse ox of 92%. He has an NG tube in place. Not responsive to any painful or verbal stimulation. He is on D5 half-normal saline at rate of 100 cc an hour. Urine output is noted of 100 cc an hour. Fluid balance is +273. Blood work from today shows white cell count of 8.2 with a hemoglobin 11.2 and a platelet count of 349. Sodium is at 139 and a potassium level is at 4.7, bicarb is at 30 with a BUN of 40 and a creatinine of 0.15. Ca lcium is at 8.9. I inserted an arterial line and the blood gas showed a pH of 7.15 with a PCO2 of above 98 and pO2 128. Based on that, I intubated the patient with a #7.5 orotracheal tube. Following that, I performed bronchoscopy and moderate amount of thick respiratory secretions identified in the lower lung foster bilaterally and therapeutic airway suctioning was done. The patient remains hemodynamically stable. The patient is on no pressors. 08/26/2024, the patient remains intubated on mechanical ventilator. The patient was taken off propofol and the patient seems to be calm and comfortable in symptoms mechanical ventilator while being on Precedex 0.3 mcg/kg/h. This morning, he is on assist-control mode of mechanical ventilation at rate of 20, tidal volume of 350, FiO2 50% with a PEEP of 5. Blood gases show a component of respiratory alkalosis with a pH of 7.48 and a pCO2 of 41 and PO2 of 118. Chest x-ray shows right lower lobe consolidation along with severe kyphoscoliosis of the spine. ET tube is in a good location. Bronchoscopy in the BAL was done and results are still pending for now. Meanwhile, going to cover the patient with empiric antibiotics. The patient is on D5 half-normal saline with potassium supplements at a rate of 100 cc an hour. He is on vital high-protein at rate of 32 cc an hour. Fluid balance is positive to 73 cc over the past 24 hours. Her white cell count of 8.2 with a hemoglobin of 0.9 and platelet count of 404. BUN is 7 with a creatinine of 0.15. Sodium is at 134 and potassium level is at 4. 08/27/2024, patient is being seen for a follow-up. This morning, the patient is awake and alert on Precedex running at 0.7 mcg/kg/min. Remains on a mechanical ventilator assist-control mode rate of 14, tidal volume of 350, FiO2 40% with a PEEP of 5. Blood gas showed a pH of 7.43 with a [id number] and PO2 159. Fluid balance is +940 cc over the past 24 hours and the patient remains on D5 half- normal saline at rate of 100 cc an hour. The patient is eating vital high- protein at rate of 32 cc an hour. The bronchioloalveolar lavage showed no microbial growth. The white cell count is at 6.8 with a hemoglobin 10.1 and a platelet count of 405. Based on all this, the patient was switched to a pressure support mode of mechanical ventilation. He was able to tolerate a PSV of 5 and a PEEP of 5 for more than an hour. No altered mentation. No encephalopathy. Subsequent blood gas showed a pH of 7.4 with a PCO2 of 56 and pO2 of 123 and this was on FiO2 of 40%. Based on all this, and after having a lengthy discussion with the family, we decided to extubate the patient. BiPAP for the third time. If BiPAP therapy fails, the patient will ultimately need a tracheostomy tube insertion. Family was in line and agreeable to this plan. Patient is hemodynamically stable. Objective - Vital Signs Vital signs: Vital Signs Temp 98.3 F 08/27/24 08:00 Pulse 137 H 08/27/24 12:05 Resp 21 08/27/24 10:00 BP 82/49 08/27/24 10:00 Pulse Ox 100 08/27/24 10:00 FiO2 50 08/27/24 12:42 Intake & Output 08/26/24 08/27/24 08/27/24 18:59 06:59 18:59 Intake Total 2268.821 2221.431 1030.419 Output Total 1850 1700 1195 Balance 418.821 521.431 -164.581 Weight 80.5 kg 79.8 kg Intake: IV 1733 1733 952 D5-0.45% NaCl with KCl 1100 1100 340 20Meq/l 1,000 ml @ 40 mls /hr IV .Q24H [facility] Rx#: [id number] Piperacillin-Tazobactam 3 100 100 100 .375 gm In Sodium Chloride 0.9% 100 ml @ 25 mls/hr IVPB Q8HR [facility] Rx# :[id number] Pressure Bag 33 33 12 Vancomycin 1,500 mg In 500 500 500 Sodium Chloride 0.9% 500 ml 500 ml @ 167 mls/hr IVPB Q12H [facility] Rx#: [id number] Intake, IV Titration 93.821 140.431 46.419 Amount Dexmedetomidine/0.9% NaCl 93.821 140.431 46.419 (Pmx) 400 mcg In Empty Bag 1 bag @ 0.2 MCG/KG/HR 3.81 mls/hr IV .Q24H [facility] Rx#:[id number] Tube Feeding 352 288 32 Other 90 60 Output: Urine 1850 1700 1195 Other: Voiding Method Indwelling Catheter Indwelling Catheter Indwelling Catheter ABP, PAP, CO, CI - Last Documented Arterial Blood Pressure 98/48 - Exam No acute distress, sedated, with an orally placed endotracheal tube.The patient has a 7.5 orotracheal tube. Sedated on Precedex and the patient is calm and comfortable. The patient also argumentative in place. Body mass index of 31.7. He has a short stature. Significant muscle atrophy in all 4 extremities. Severe kyphoscoliosis of the thoracolumbar spine. The patient is effectively sedated on Precedex HEENT examination is grossly unremarkable. Orogastric and orotracheal tube are both in place. Neck supple. Full range of motion. No adenopathy thyromegaly or neck vein distention. Cardiovascular examination reveals regular rhythm rate. S1-S2 normal. No S3 or S4. No discernible murmur noted. Heart sounds are distant. Lungs reveal scattered coarse rhonchi. No wheezes. No crackles. Diminished breath sounds bilateral especially lung bases Abdomen soft with bowel sounds. No masses. Extremities are intact. The patient has significant contractures. Skin is without rash or lesion. Neurologic examination is sedated on propofol and the patient is calm and comfortable. - Labs CBC & Chem 7: 08/27/24 03:16 08/27/24 03:16 Labs: Abnormal Lab Results - Last 24 Hours (Table) 08/26/24 08/27/24 08/27/24 Range/Units 18:30 00:58 03:16 RBC 3.21 L (4.40-5.60) 10*6/uL Hgb 10.1 L (13.0-17.0) g/dL Hct 32.0 L (39.6-50.0) % MCV 99.7 H (80.0-97.0) fL MCHC 31.6 L (32.0-37.0) g/dL MPV 8.6 L (9.5-12.2) fL ABG pCO2 (35-45) mmHg ABG pO2 (83-108) mmHg ABG HCO3 (21-25) mmol/L ABG Total CO2 (19-24) mmol/L ABG O2 Saturation (94-97) % Hemoglobin (13.0-17.5) gm/dL BUN (9-20) mg/dL Creatinine (0.66-1.25) mg/dL Glucose (74-99) mg/dL POC Glucose (mg/dL) 150 H 138 H (70-110) mg/dL 08/27/24 08/27/24 08/27/24 Range/Units 03:16 05:28 06:58 RBC (4.40-5.60) 10*6/uL Hgb (13.0-17.0) g/dL Hct (39.6-50.0) % MCV (80.0-97.0) fL MCHC (32.0-37.0) g/dL MPV (9.5-12.2) fL ABG pCO2 46 H (35-45) mmHg ABG pO2 159 H (83-108) mmHg ABG HCO3 30 H (21-25) mmol/L ABG Total CO2 32 H (19-24) mmol/L ABG O2 Saturation 99.9 H (94-97) % Hemoglobin 10.2 L (13.0-17.5) gm/dL BUN 4 L (9-20) mg/dL Creatinine <0.15 L (0.66-1.25) mg/dL Glucose 117 H (74-99) mg/dL POC Glucose (mg/dL) 149 H (70-110) mg/dL 08/27/24 Range/Units 10:18 RBC (4.40-5.60) 10*6/uL Hgb (13.0-17.0) g/dL Hct (39.6-50.0) % MCV (80.0-97.0) fL MCHC (32.0-37.0) g/dL MPV (9.5-12.2) fL ABG pCO2 56 H (35-45) mmHg ABG pO2 123 H (83-108) mmHg ABG HCO3 34 H (21-25) mmol/L ABG Total CO2 36 H (19-24) mmol/L ABG O2 Saturation 99.3 H (94-97) % Hemoglobin 10.4 L (13.0-17.5) gm/dL BUN (9-20) mg/dL Creatinine (0.66-1.25) mg/dL Glucose (74-99) mg/dL POC Glucose (mg/dL) (70-110) mg/dL Microbiology - Last 24 Hours (Table) 08/25/24 12:05 Gram Stain - Final Bronchoalviolar Lavage - Right Bronchial Washings Culture - Final Assessment and Plan Plan: Acute on chronic hypoxic/hypercapnic respiratory failure with significant respiratory acidosis. The patient failed extubation twice. He was extubated for the second time on 08/24/2024 to be reintubated on 08/25/2024 for severe hypo xic and hypercapnic respiratory acidosis and signs of CO2 narcosis. Post bronchoscopy on 08/25/2024 and therapeutic airway suctioning was done and a BAL of the right lower lobe was also done. This is a case of severe muscle dystrophy along with significant restrictive lung disease secondary to jason romuscular weakness and severe kyphoscoliosis of the chest. The patient was able to tolerate a PSV of 5 and a PEEP of 5 for almost an hour. Subsequent blood gases showed adequate oxygenation and ventilation. There was some mild hypercapnia that was well compensated. The bronchoscopy and the bronchoalveolar lavage showed no microbial growth. Chest x-ray findings are unchanged. We are considering extubation to a BiPAP and the plan will be to reintubate and proceed with tracheostomy tube insertion if the patient fails this third extubation. Diminished level of consciousness secondary to CO2 narcosis, improvement in acid-base status based on the most recent blood gas, the patient is awake and alert being on low-dose Precedex running at 0.3 mcg/kg/h. Sepsis, resolved. Postcardiopulmonary arrest, recovered Duchenne muscular dystrophy. Severe kyphoscoliosis of the thoracic spine Chronic sinus tachycardia, hemodynamically stable Benign essential hypertension. Seasonal allergic rhinitis. Plan: Extubate the patient to a BiPAP at a pressure of 10 over 5 cm of water and titrate FiO2 Monitor minute ventilation in the generated tidal volume while being on a BiPAP Obtain a follow-up blood gas postextubation Continue bronchodilators Continue current antibiotic coverage the patient is currently on Zosyn and vancomycin Given a dose of Lasix 40 mg IV push D5 half-normal saline at rate of 100 cc an hour Precedex for sedation Adequate urine output No signs of any fluid overload Continue Lovenox for DVT prophylaxis Continue scopolamine and Robinul Dilaudid for pain control IV Protonix Had a lengthy discussion with the family regarding goals of treatment. The patient has failed extubation twice. If the third extubation fails, the plan w ould be to proceed with tracheostomy tube insertion. This is working progress. Will continue to follow and will make further recommendations based on patient's condition postextubation. This evaluation was done and 45 minutes excluding time to do any procedures. Time with Patient: Greater than 30
[2024-08-27 14:55] LABS: Allen Test Performed? Yes
[2024-08-27 14:56] LABS: ABG Base Excess 9.1 mmol/L; ABG HCO3 36 mmol/L (21-25); ABG Oxygen Saturation 99.7 % (94-97); ABG PCO2 60 mmHg (35-45); ABG PH 7.39 (7.35-7.45); ABG PO2 159 mmHg (83-108); ABG TCO2 38 mmol/L (19-24)
[2024-08-27 15:29] LABS: ABG Base Excess 6.9 mmol/L; ABG HCO3 34 mmol/L (21-25); ABG Oxygen Saturation 96.6 % (94-97); ABG PCO2 63 mmHg (35-45); ABG PH 7.34 (7.35-7.45); ABG PO2 86 mmHg (83-108); ABG TCO2 36 mmol/L (19-24); Allen Test Performed? Yes
[2024-08-27 18:21] LABS: Glucose,Whole Blood 119 mg/dL (70-110)
[2024-08-27 23:36] LABS: Glucose,Whole Blood 113 mg/dL (70-110)
[2024-08-28 04:35] VITALS: TEMP 98
[2024-08-28 05:29] LABS: Glucose,Whole Blood 115 mg/dL (70-110)
--- NOTE | 2024-08-28 07:18 | XR ---
EXAMINATION TYPE: XR chest 1V portable DATE OF EXAM: 08/28/2024 5:23 AM COMPARISON: Chest radiograph from one day prior. CLINICAL INDICATION: Male, 24 years old with history of Tube placement; [facility] TECHNIQUE: XR chest 1V portable Frontal view of the chest. FINDINGS: Rotated exam limits evaluation. Lungs/Pleura: Elevated diaphragms as seen on prior CT. Haziness in the right lung possibly atelectasi s. Pulmonary vascularity: Unremarkable. Heart/mediastinum: Cardiomediastinal silhouette is unremarkable. Musculoskeletal: No acute osseous pathology. Scoliosis changes. Removal of endotracheal tube Nasogastric tube distal tip terminating in the gastric lumen. IMPRESSION: Stable appearance of lungs which are obscured because of patient positioning. Nasogastric tube in satisfactory position. [facility], , 08/28/2024 7:15 AM
[2024-08-28] MEDS ORDERED: BENZOCAINE SPRAY 1 EACH MUCOUS MEM PRN (08:17)
[2024-08-28] MEDS: VANCOMYCIN TROUGH DUE 1 EACH MISC MISCELLANE ONE (08:18)
[2024-08-28 08:46] LABS: Basophils # (A) 0.06 10*3/uL (0.00-0.10); Eosinophils # (A) 0.07 10*3/uL (0.04-0.35); Eosinophils % (A) 1.1 %; HCT 34.1 % (39.6-50.0); HGB 10.8 g/dL (13.0-17.0); Lymphocytes % (A) 22.7 %; MCH 31.6 pg (27.0-32.0); MCHC 31.7 g/dL (32.0-37.0); MCV 99.7 fL (80.0-97.0); Mean Platelet Volume 8.7 fL (9.5-12.2); Monocytes # (A) 0.45 10*3/uL (0.20-1.00); Monocytes % (A) 7.3 %; Neutrophils # (A) 4.17 10*3/uL (1.80-7.70); Neutrophils % (A) 67.7 %; Platelet Count 399 10*3/uL (140-440); RBC 3.42 10*6/uL (4.40-5.60); RDW 12.6 % (11.5-14.5); WBC 6.16 10*3/uL (4.50-10.00)
[2024-08-28 08:59] LABS: Anion Gap 6 mmol/L; Blood Urea Nitrogen 5 mg/dL (9-20); Calcium 9.2 mg/dL (8.4-10.2); Carbon Dioxide 33 mmol/L (22-30); Chloride 100 mmol/L (98-107); Glucose 113 mg/dL (74-99); Potassium 4.3 mmol/L (3.5-5.1); Sodium 139 mmol/L (137-145)
[2024-08-28 09:00] LABS: African American GFR (CKD) >90 (>60 ml/min/1.73 sqM); Non-African American GFR(CKD) >90 (>60 ml/min/1.73 sqM)
[2024-08-28] MEDS: FUROSEMIDE 10 MG/ML 2 ML VIAL IV STA (09:51)
[2024-08-28 11:18] LABS: Glucose,Whole Blood 116 mg/dL (70-110)
--- NOTE | 2024-08-28 11:20 | P.PN ---
Subjective Progress Note Date: 08/28/24 This is a 25-year-old white male known history of Duchenne muscular dystrophy, wheelchair-bound, nonambulatory, brought in last night to the emergency room, shortly after he had a cough episode, and patient had difficulty clearing his secretions according to his parents. Patient was noted to be gasping for air, then he was moved to his wheelchair and he started developing more gasping episodes. Then the patient went blue and unresponsive. EMS was brought in started CPR on the patient for about 5 minutes. Shortly after patient was noted to have return of spontaneous circulation, he was responsive, however he was still having difficulty breathing. Patient was Ambu bag and brought into the ER. Upon arrival, patient was intubated and mechanically ventilated. According to family the patient was not sick recently, he had no fever, no chills, and no sick contacts. No history of pulmonary embolism or DVT. Patient had extensive workup in the ER including a chest x-ray, CT angiogram of the chest, and CT of abdomen. CT angiogram of the chest showed no evidence of pulmonary embolism there was evidence however of small pneumomediastinum endotracheal tube was noted to be in proper positions. There was evidence of secretions within the right lower lobe and right middle lobe and atelectasis of the right middle lobe. No evidence of intra-abdominal process noted. And it confirmed orogastric tube in the stomach. Patient was placed empirically on antibiotics, I was notified about this patient, and I accepted the patient to be admitted to the ICU. Saw the patient today, he is on assist-control rate of 22 tidal volume 350 FiO2 was 50% and I cut it down to 40% PEEP of 5. ABG earlier today at 60% showed a pO2 of 158 pCO2 29 pH of 7.42. Patient is on propofol at 45 mcg/kg/min he is also on LR at 100 cc/h patient is normally on atenolol and he had a scopolamine patch applied because of excessive secretions through the endotracheal tube. Antibiotics chase patient is on Rocephin and Zithromax. Chest x-ray today is a very poor quality especially with his body habitus cannot tell much based on chest x-ray findings. Extremely suboptimal chest x-ray. I was about to consider weaning and extubation of this patient, however I noted that the patient had leukocytosis with WBC of 17.5, his electrolytes are reflecting anion gap metabolic acidosis with bicarb of 16 and anion gap of 17. Lactic acid was normal electrolytes were relatively unremarkable except for slightly low sodium and potassium, hence I will hold back on weaning today, the plan is to continue antibiotics, continue suctioning of secretions, and weaning to be addressed in the next 24 hours. I believe it is a bit too early to wean and extubate this patient at this point yet. 08/18/2024 patient seen and examined at bedside. Patient seen in the ICU intubated, sedated and on mechanical ventilation. No acute events overnight. Current ventilator settings volume control with a rate of 22, tidal volume 350, FiO2 40% and a PEEP of 5. Chest x-ray today showed severe thoracic deformity secondary to underlying scoliosis, improving aeration of the left, hazy density filling most of the right side suspected pleural effusion with underlying atelectasis and/or consolidation, ET tube estimated 1.7 to from the meir. Current drips propofol 50 mcg/kg/min, [id number] saline running at 100 cc/h. Currently on empiric antibiotics with ceftriaxone IVPB. Labs today: WBC 13.8, hemoglobin 11.9, platelet count 252,000, sodium 133, potassium 2.1, bicarb 21, BUN to creatinine less than 0.15, glucose 129, calcium 8.2. ABG showed pH 7.48, PCO2 23, PO2 115 08/19/2024 patient seen and examined at bedside in the ICU. Still currently intubated, sedated and on mechanical ventilation. No acute events overnight. A ttempted SBT yesterday failed as patient became tachycardic, higher respiratory rate, NIF -6 and low tidal volumes during the trial. Current ventilator settings volume control with a rate of 22, tidal volume 350, FiO2 30% and a PEEP of 5. Current drips propofol 40 mcg/kg/min, [id number]-hbuhjj saline running at 100 cc/h. Tube feeds at 40mL/hr. Currently on empiric antibiotics with ceftriaxone IVPB. Labs: WBC 10.3, hemoglobin 11.8, platelet count 253,000, sodium 137, potassium 4.1, bicarb 22, calcium 8.1, BUN 4, creatinine 0.15, glucose 99. ABG showed PO2 83, pCO2 33, pH 7.52, FiO2 30% Imaging; chest x-ray today showed stable aeration of the right and left lungs despite limited visualization due to patient's anatomy 08/20/2024 patient seen and examined at bedside in the ICU. Still currently i ntubated, sedated and on mechanical ventilation. No acute events overnight. Attempted SBT yesterday and failed due to low tidal volumes and shallow breathing, increased respiratory rate with copius oral secretions. Current ventilator settings volume control with a rate of 20, tidal volume 350, FiO2 30% PEEP of 5. Propofol held at this time. Tube feeds held due to OG tube being disconnected. Labs: WBC 7.7, hemoglobin 10.2, platelet count 273,000, sodium 138, potassium 2.9, magnesium 1.5, bicarb 25, calcium 7.9, glucose 109, BUN 2, creatinine less than 0.15. ABG showed pO2 163, pCO2 26, pH 7.59 on FiO2 30%. Sputum culture negative. Imaging; chest x-ray showed low lying endotracheal tube, persistent low lung volumes of bilateral central opacities 08/21/2024 patient seen and examined at bedside in the ICU. DIS SBT attempted yesterday with marginal weaning parameters but patient's overall clinical status has improved and extubation was done. Patient's oxygenation requirements increased throughout the day, requiring BiPAP around 6pm and eventually requiring reintubation. Current mechanical ventilator settings volume control with a rate of 20, tidal volume 350, FiO2 50% and PEEP of 5. Current IV drip of propofol 40 mcg/kg/min. Tube feed vital high-protein at 10 mL/h. Labs: WBC 6.92, hemoglobin 11.2, platelet count 1 61,000, sodium 136, potassium 3.2, bicarb 25, BUN less than 2, creatinine less than 0.15, calcium 8.3, magnesium 2.1, glucose 92. VBG bicarb 26, CO2 26, pH 7.6. Imaging; chest x-ray today showed stable bilateral central opacities consistent with acute infiltrates/edema and low lung volumes 08/22/2024 patient seen and examined at bedside in the ICU. No acute events overnight. Attempted ART line placement yesterday but was not successful. Current mechanical ventilator settings volume control with a rate of 20, tidal volume 350, FiO2 50% and PEEP of 5. Current IV drip of propofol 35 mcg/kg/min. Tube feed vital high-protein at 32 mL/h. Labs: WBC 7.76, hemoglobin 11.2, sodium 138, potassium 3.7, bicarb 27, glucose 102, calcium 8.5, BUN less than 2, creatinine less than 0.15. VBG showed bicarb 27, CO2 30, pH 7.56 Imaging; chest x-ray showed persistent and stable bilateral central opacities with persistent lower lung volumes 08/23/2024 patient seen and examined at bedside in the ICU. No acute events overnight. Current mechanical ventilator settings volume control with a rate of 16, tidal volume 350, FiO2 40% and PEEP of 5. Current IV drip of propofol 35 mcg/kg/min. Tube feed vital high-protein at 32 mL/h. Labs: WBC 9.4, hemoglobin 10.7, platelet count 302,000, sodium 140, potassium 4, bicarb 31, glucose 129, calcium 8.5, BUN 30, creatinine less than 0.15. VBG showed bicarb 31, CO2 46, pH 7.4 Imaging; chest x-ray today showed stable low lung volumes and bilateral central opacities Progress note dated August 24, 2024. The patient is seen this morning, in room 254. He remains on volume assist- control, rate 16, tidal volume 350, FiO2 40%, PEEP of 5. He is receiving D5 with half-normal saline at 100 cc an hour, propofol at 40 mcg/kg/min, and vital high-protein at goal, which is 32 cc an hour. Laboratory data this morning includes a white count of 7.93, hemoglobin 11, hematocrit 34.9, and platelet count 302,000. Sodium 140, potassium 4.6, chlorides 106, CO2 28, anion gap 6, BUN 5, and creatinine less than 0.15. Glucose is 103. Calcium is 8.7. Chest x-ray again is suboptimal. Basilar atelectasis is noted. A portion of the stomach is in the chest cavity with an air-fluid level. His chest x-ray is largely unchanged. The patient was previously extubated on August 21, but required re-intubation on the same day. His daily weaning parameters are marginal. I did speak to the family about tracheostomy eventually. 08/25/2024, patient is being seen for a follow-up in the intensive care unit. Unresponsive, shallow rapid breathing while being on a BiPAP at a pressure of 14.5 cm of water and FiO2 of 90%. Tidal volume generators are barely above 200 with respiratory rate of 33 and a pulse ox of 92%. He has an NG tube in place. Not responsive to any painful or verbal stimulation. He is on D5 half-normal saline at rate of 100 cc an hour. Urine output is noted of 100 cc an hour. Fluid balance is +273. Blood work from today shows white cell count of 8.2 with a hemoglobin 11.2 and a platelet count of 349. Sodium is at 139 and a potassium level is at 4.7, bicarb is at 30 with a BUN of 40 and a creatinine of 0.15. Ca lcium is at 8.9. I inserted an arterial line and the blood gas showed a pH of 7.15 with a PCO2 of above 98 and pO2 128. Based on that, I intubated the patient with a #7.5 orotracheal tube. Following that, I performed bronchoscopy and moderate amount of thick respiratory secretions identified in the lower lung foster bilaterally and therapeutic airway suctioning was done. The patient remains hemodynamically stable. The patient is on no pressors. 08/26/2024, the patient remains intubated on mechanical ventilator. The patient was taken off propofol and the patient seems to be calm and comfortable in symptoms mechanical ventilator while being on Precedex 0.3 mcg/kg/h. This morning, he is on assist-control mode of mechanical ventilation at rate of 20, tidal volume of 350, FiO2 50% with a PEEP of 5. Blood gases show a component of respiratory alkalosis with a pH of 7.48 and a pCO2 of 41 and PO2 of 118. Chest x-ray shows right lower lobe consolidation along with severe kyphoscoliosis of the spine. ET tube is in a good location. Bronchoscopy in the BAL was done and results are still pending for now. Meanwhile, going to cover the patient with empiric antibiotics. The patient is on D5 half-normal saline with potassium supplements at a rate of 100 cc an hour. He is on vital high-protein at rate of 32 cc an hour. Fluid balance is positive to 73 cc over the past 24 hours. Her white cell count of 8.2 with a hemoglobin of 0.9 and platelet count of 404. BUN is 7 with a creatinine of 0.15. Sodium is at 134 and potassium level is at 4. 08/27/2024, patient is being seen for a follow-up. This morning, the patient is awake and alert on Precedex running at 0.7 mcg/kg/min. Remains on a mechanical ventilator assist-control mode rate of 14, tidal volume of 350, FiO2 40% with a PEEP of 5. Blood gas showed a pH of 7.43 with a [id number] and PO2 159. Fluid balance is +940 cc over the past 24 hours and the patient remains on D5 half- normal saline at rate of 100 cc an hour. The patient is eating vital high- protein at rate of 32 cc an hour. The bronchioloalveolar lavage showed no microbial growth. The white cell count is at 6.8 with a hemoglobin 10.1 and a platelet count of 405. Based on all this, the patient was switched to a pressure support mode of mechanical ventilation. He was able to tolerate a PSV of 5 and a PEEP of 5 for more than an hour. No altered mentation. No encephalopathy. Subsequent blood gas showed a pH of 7.4 with a PCO2 of 56 and pO2 of 123 and this was on FiO2 of 40%. Based on all this, and after having a lengthy discussion with the family, we decided to extubate the patient. BiPAP for the third time. If BiPAP therapy fails, the patient will ultimately need a tracheostomy tube insertion. Family was in line and agreeable to this plan. Patient is hemodynamically stable. On 08/28/2024, the patient is being seen for a follow-up. The patient was weaned off the mechanical ventilator and the patient was extubated yesterday and since then, the patient has been maintained on a BiPAP at a pressure of 10/5 and FiO2 was weaned down to 50% this morning. The patient is awake alert and communicating. He has muscle dystrophy and the patient has global generalized weakness and a weak cough. He generated tidal volume on the BiPAP disorder of 230 cc and the respiratory rate is around 28. He remains on D5 half-normal saline with potassium supplements at a rate of 40 cc an hour. NG tube is in place. Tube feeds are currently on hold. Fluid balance is -3.1 L over the past 24 hours. He remains on low-dose Precedex at 0.4 mcg/kg/h. No blood gases obtained today as the patient lost his arterial line. His white cell count is 6 .1 with a hemoglobin 10.8 with a platelet count of 399. BUN is at 5 with a creatinine of 0.15 and a serum bicarbonate of 33 and sodium levels at 139. Family is at the bedside. They have made a decision for a DNR/DNI CODE STATUS. Objective - Vital Signs Vital signs: Vital Signs Temp 98.0 F 08/28/24 04:00 Pulse 78 08/28/24 07:00 Resp 39 H 08/28/24 07:00 BP 80/42 08/28/24 07:00 Pulse Ox 96 08/28/24 06:00 FiO2 65 08/28/24 05:46 Intake & Output 08/27/24 08/28/24 08/28/24 18:59 06:59 18:59 Intake Total 1495.183 494.603 3 Output Total 3945 1150 45 Balance -2449.817 -655.397 -42 Weight 79.9 kg Intake: IV 1396 216 3 D5-0.45% NaCl with KCl 660 80 20Meq/l 1,000 ml @ 40 mls /hr IV .Q24H [facility] Rx#: [id number] Piperacillin-Tazobactam 3 200 100 .375 gm In Sodium Chloride 0.9% 100 ml @ 25 mls/hr IVPB Q8HR [facility] Rx# :[id number] Pressure Bag 36 36 3 Vancomycin 1,500 mg In 500 Sodium Chloride 0.9% 500 ml 500 ml @ 167 mls/hr IVPB Q12H [facility] Rx#: [id number] Intake, IV Titration 67.183 98.603 Amount Dexmedetomidine/0.9% NaCl 67.183 98.603 (Pmx) 400 mcg In Empty Bag 1 bag @ 0.2 MCG/KG/HR 3.81 mls/hr IV .Q24H [facility] Rx#:[id number] Tube Feeding 32 Other 180 Output: Urine 3945 1150 45 Other: Voiding Method Indwelling Catheter Indwelling Catheter ABP, PAP, CO, CI - Last Documented Arterial Blood Pressure 62/59 - Exam No acute distress, calm and comfortable on the BiPAP pressure of 10/5 cmH2O and FiO2 50%. Patient remains on low-dose Precedex. The patient has significant deformities related to severe kyphoscoliosis of the spine and he has diffuse muscle atrophy in all 4 extremities. HEENT examination is grossly unremarkable. Orogastric and orotracheal tube are both in place. Neck supple. Full range of motion. No adenopathy thyromegaly or neck vein distention. Cardiovascular examination reveals regular rhythm rate. S1-S2 normal. No S3 or S4. No discernible murmur noted. Heart sounds are distant. Lungs reveal scattered coarse rhonchi. No wheezes. No crackles. Diminished breath sounds bilateral especially lung bases, severe kyphoscoliosis of the thoracic spine Abdomen soft with bowel sounds. No masses. Extremities are intact. The patient has significant contractures. Skin is without rash or lesion. Neurologic examination shows a weak cough, impaired motor function in all 4 extremities and the patient is significant muscle atrophy in addition to diminished motor function in all 4 extremities. Able to communicate. No facial asymmetry. - Labs CBC & Chem 7: 08/28/24 08:26 08/28/24 08:26 Labs: Abnormal Lab Results - Last 24 Hours (Table) 08/27/24 08/27/24 08/27/24 Range/Units 10:18 14:48 15:25 ABG pH 7.34 L (7.35-7.45) ABG pCO2 56 H 60 H 63 H (35-45) mmHg ABG pO2 123 H 159 H (83-108) mmHg ABG HCO3 34 H 36 H 34 H (21-25) mmol/L ABG Total CO2 36 H 38 H 36 H (19-24) mmol/L ABG O2 Saturation 99.3 H 99.7 H (94-97) % Hemoglobin 10.4 L 10.8 L 11.0 L (13.0-17.5) gm/dL POC Glucose (mg/dL) (70-110) mg/dL 08/27/24 08/27/24 08/28/24 Range/Units 18:19 23:35 05:28 ABG pH (7.35-7.45) ABG pCO2 (35-45) mmHg ABG pO2 (83-108) mmHg ABG HCO3 (21-25) mmol/L ABG Total CO2 (19-24) mmol/L ABG O2 Saturation (94-97) % Hemoglobin (13.0-17.5) gm/dL POC Glucose (mg/dL) 119 H 113 H 115 H (70-110) mg/dL Microbiology - Last 24 Hours (Table) 08/25/24 12:05 Gram Stain - Final Bronchoalviolar Lavage - Right Bronchial Washings Culture - Final Assessment and Plan Plan: Acute on chronic hypoxic/hypercapnic respiratory failure with significant respiratory acidosis. The patient failed extubation twice. He was extubated for the second time on 08/24/2024 to be reintubated on 08/25/2024 for severe hypoxic and hypercapnic respiratory acidosis and signs of CO2 narcosis. Post bronchoscopy on 08/25/2024 and therapeutic airway suctioning was done and a BAL of the right lower lobe was also done. This is a case of severe muscle dystrophy along with significant restrictive lung disease secondary to neuromuscular weakness and severe kyphoscoliosis of the chest. The bronchoscopy and the bronchoalveolar lavage showed no microbial growth. The patient was extubated again on 08/27/2024 and the patient remains on BiPAP with pressure of 10/5 cmH2O with an FiO2 of 40%. Awake and alert. Communicating. Chronically debilitated due to advanced skeletal deformities, severe kyphoscoliosis and neuromuscular weakness related to muscle dystrophy. Diminished level of consciousness secondary to CO2 narcosis, improvement in acid-base status based on the most recent blood gas, the patient is awake and alert being on low-dose Precedex running at 0. 4 mcg/kg/h. Sepsis, resolved. Postcardiopulmonary arrest, recovered Duchenne muscular dystrophy. Severe kyphoscoliosis of the thoracic spine Chronic sinus tachycardia, hemodynamically stable Benign essential hypertension. Seasonal allergic rhinitis. Plan: Keep BiPAP at a pressure of 10 over 5 cm of water and titrate FiO2, we may give the patient a trial of Airvo Keep NG tube in place and hold tube feeds Give a dose of Lasix 20 mg IV push x 1 Continue low-dose Precedex Continue bronchodilators Continue current antibiotic coverage the patient is currently on Zosyn and vancomycin D5 half-normal saline at rate of 40 cc an hour Adequate urine output No signs of any fluid overload Continue Lovenox for DVT prophylaxis Continue scopolamine and Robinul Dilaudid for pain control IV Protonix I am in constant discussions with the family after discussing case quite debilitated condition and his poor long-term prognosis, the family opted to proceed with a DNR/DNI CODE STATUS. No plans for intubation if the patient ramin ls this third extubation. This evaluation was done and 45 minutes excluding time to do any procedures. Time with Patient: Greater than 30
--- NOTE | 2024-08-28 14:49 | P.PN ---
Subjective Progress Note Date: 08/28/24 SURGICAL PROGRESS NOTE CHIEF COMPLAINT: Respiratory failure HISTORY OF PRESENT ILLNESS: Patient remains in the ICU and on Bipap. CODE STATUS was changed to DNR/DNI. Afebrile PHYSICAL EXAM: VITAL SIGNS: Reviewed. GENERAL: No acute distress, contracted ABDOMEN: Soft. Nondistended. Nontender. NEUROLOGIC: Awake ASSESSMENT: 1. Respiratory failure 2. Failure to thrive 3. Duchenne muscular dystrophy PLAN: -Critical care team recommendations noted. Patient has been made DNR/DNI -Surgical service will remain on standby for if trach and peg are needed Physician Bsa Officer note has been reviewed by physician. Signing provider agrees with the documented findings, assessment, and plan of care. Attestation Patient seen and examined at bedside on 08/28/2024. Chief complaint respiratory failure. Patient has been made DNR/DNI. Currently, family evaluating whether they want to move forward with trach and PEG. Surgical service will remain on standby if decision is made for this. Continue current management based on ICU team. Héctor Aleman DO Objective - Vital Signs Vital signs: Vital Signs Temp 98.0 F 08/28/24 04:00 Pulse 96 08/28/24 10:00 Resp 32 H 08/28/24 10:00 BP 114/72 08/28/24 10:00 Pulse Ox 95 08/28/24 10:00 FiO2 65 08/28/24 11:28 Intake & Output 08/27/24 08/28/24 08/28/24 18:59 06:59 18:59 Intake Total 1495.183 494.603 77.196 Output Total 3945 1150 1045 Balance -2449.817 -655.397 -967.804 Weight 79.9 kg Intake: IV 1396 216 3 D5-0.45% NaCl with KCl 660 80 20Meq/l 1,000 ml @ 40 mls /hr IV .Q24H [facility] Rx#: [id number] Piperacillin-Tazobactam 3 200 100 .375 gm In Sodium Chloride 0.9% 100 ml @ 25 mls/hr IVPB Q8HR [facility] Rx# :[id number] Pressure Bag 36 36 3 Vancomycin 1,500 mg In 500 Sodium Chloride 0.9% 500 ml 500 ml @ 167 mls/hr IVPB Q12H [facility] Rx#: [id number] Intake, IV Titration 67.183 98.603 44.196 Amount Dexmedetomidine/0.9% NaCl 67.183 98.603 44.196 (Pmx) 400 mcg In Empty Bag 1 bag @ 0.2 MCG/KG/HR 3.81 mls/hr IV .Q24H [facility] Rx#:[id number] Tube Feeding 32 Other 180 30 Output: Urine 3945 1150 1045 Other: Voiding Method Indwelling Catheter Indwelling Catheter Indwelling Catheter ABP, PAP, CO, CI - Last Documented Arterial Blood Pressure 62/59 - Labs CBC & Chem 7: 08/28/24 08:26 08/28/24 08:26 Labs: Abnormal Lab Results - Last 24 Hours (Table) 08/27/24 08/27/24 08/27/24 Range/Units 14:48 15: 18:19 RBC (4.40-5.60) 10*6/uL Hgb (13.0-17.0) g/dL Hct (39.6-50.0) % MCV (80.0-97.0) fL MCHC (32.0-37.0) g/dL MPV (9.5-12.2) fL ABG pH 7.34 L (7.35-7.45) ABG pCO2 60 H 63 H (35-45) mmHg ABG pO2 159 H (83-108) mmHg ABG HCO3 36 H 34 H (21-25) mmol/L ABG Total CO2 38 H 36 H (19-24) mmol/L ABG O2 Saturation 99.7 H (94-97) % Hemoglobin 10.8 L 11.0 L (13.0-17.5) gm/dL Carbon Dioxide (22-30) mmol/L BUN (9-20) mg/dL Creatinine (0.66-1.25) mg/dL Glucose (74-99) mg/dL POC Glucose (mg/dL) 119 H (70-110) mg/dL 08/27/24 08/28/24 08/28/24 Range/Units 23:35 05:28 08:26 RBC 3.42 L (4.40-5.60) 10*6/uL Hgb 10.8 L (13.0-17.0) g/dL Hct 34.1 L (39.6-50.0) % MCV 99.7 H (80.0-97.0) fL MCHC 31.7 L (32.0-37.0) g/dL MPV 8.7 L (9.5-12.2) fL ABG pH (7.35-7.45) ABG pCO2 (35-45) mmHg ABG pO2 (83-108) mmHg ABG HCO3 (21-25) mmol/L ABG Total CO2 (19-24) mmol/L ABG O2 Saturation (94-97) % Hemoglobin (13.0-17.5) gm/dL Carbon Dioxide (22-30) mmol/L BUN (9-20) mg/dL Creatinine (0.66-1.25) mg/dL Glucose (74-99) mg/dL POC Glucose (mg/dL) 113 H 115 H (70-110) mg/dL 08/28/24 08/28/24 Range/Units 08:26 11:17 RBC (4.40-5.60) 10*6/uL Hgb (13.0-17.0) g/dL Hct (39.6-50.0) % MCV (80.0-97.0) fL MCHC (32.0-37.0) g/dL MPV (9.5-12.2) fL ABG pH (7.35-7.45) ABG pCO2 (35-45) mmHg ABG pO2 (83-108) mmHg ABG HCO3 (21-25) mmol/L ABG Total CO2 (19-24) mmol/L ABG O2 Saturation (94-97) % Hemoglobin (13.0-17.5) gm/dL Carbon Dioxide 33 H (22-30) mmol/L BUN 5 L (9-20) mg/dL Creatinine <0.15 L (0.66-1.25) mg/dL Glucose 113 H (74-99) mg/dL POC Glucose (mg/dL) 116 H (70-110) mg/dL Microbiology - Last 24 Hours (Table) 08/25/24 12:05 Gram Stain - Final Bronchoalviolar Lavage - Right Bronchial Washings Culture - Final
[2024-08-28] MEDS ORDERED: IPRATROPIUM-ALBUTEROL 3 ML NEB INHALATION PRN (14:58)
[2024-08-28] MEDS ORDERED: ONDANSETRON 4 MG/2 ML VIAL IVP PRN (17:11)
[2024-08-28] MEDS ORDERED: MORPHINE SULFATE 4 MG/ML SYRINGE IVP PRN (17:11)
[2024-08-28] MEDS ORDERED: HYDROmorphone 1 MG/ML 1 ML SYRINGE IVP PRN (17:11)
[2024-08-28] MEDS ORDERED: MORPHINE SULFATE 2 MG/ML SYRINGE IVP PRN (17:11)
[2024-08-28] MEDS ORDERED: VANCOMYCIN 1,500 MG in SODIUM CHLORIDE 0.9% 500 ML 500 ML IVPB SCH (18:00)
[2024-08-28] MEDS: MORPHINE SULFATE 100 MG in SODIUM CHLORIDE 0.9% 90 ML IV SCH (18:29)
--- NOTE | 2024-08-28 21:49 | P.PN ---
Subjective Progress Note Date: 08/25/24 History of present illness; patient is a 24-year-old gentleman with past medical history significant for Duchenne muscular dystrophy who presents the ER from home for respiratory distress. Apparently patient was all right yesterday morning when while at home patient starting having cough and started having shortness of breath. Patient started gasping for air, patient went unresponsive, patient family started CPR and EMS was called. Patient had CPR for approximately 5 minutes. EMS arrived at the spot and bagged en route to the hospital. In the ER, patient was continued to have respiratory distress and was intubated Initial lab work done in the ER showed WBC 7.01, hemoglobin 14.2, platelet count 413 sodium 138, potassium 3.7, chloride 99, BUN 9, creatinine 0.19, glucose 215, lactate 7, AST 61, troponin 0.034 UA done showed no infection EKG done in the ER showed heart rate of , no ST segment elevation or depression seen, no T-wave inversions seen. Chest x-ray done in the ER showed endotracheal tube in the left main bronchus, retraction recommended of 2 to 3 cm. gaseous distention of bowel and stomach CT chest PE protocol done showed no evidence of PE, no evidence of bowel obstruction. Secretions in the right lower lobe and right middle lobe airways with atelectasis of the right middle lobe Patient admitted to internal medicine service 08/18/2024 Patient is in the ICU. Intubated and sedated and on mechanical ventilator. Assist-control with respiratory rate 22, tidal volume 350 FiO2 40% and PEEP of 5. Chest x-ray showed severe thoracic deformity secondary to underlying scolio sis limiting the evaluation. Improving aeration on the left. Hazy density feeling most of the right side of the chest suspected pleural effusion with underlying atelectasis and/or consolidation likely similar. Patient had antibiotic ceftriaxone. Also on IV hydration with D5 normal saline at 100 cc/h. Laboratory data showed WBC 13.8 hemoglobin 11.9 and platelets 252 sodium 133 potassium 2.1 chloride 104 bicarb is 21 BUN less than 20 creatinine 0.15 and blood sugar 129 and calcium 8.2. Critical care team on board. 08/19/2024 Patient is in the MICU. Intubated, sedated and on mechanical ventilator. Continued on IV antibiotics and follow ceftriaxone 1 g IV PV and also on IV hydration with normal saline. Patient was also started on tube feeding at 40 cc/h. Laboratory data showed WBC 10.3 hemoglobin 11.8 and platelets 253 BUN 4 and creatinine 0.15 and calcium 8.1. Chest x-ray this morning showed severely limited exam due to combination of thoracic deformity, positioning and sitting down. Unable to visualize ET tube. Suspect underlying sizable right pleural effusion with adjacent atelectasis and/or consolidation. 08/20/2024 Patient is in the MICU. On mechanical ventilator. Sedation is on hold.. Failed weaning trial yesterday. Currently on assist-control with respirate rate of 20 tidal volume 350 FiO2 30% and PEEP of 5. Patient remains on antibiotics in the form of ceftriaxone 1 g daily. Chest x-ray showed suboptimal study. Low-lying endotracheal tube should be pulled back 1 to 2 cm to be more ideal position. Persistent low lung volumes and bilateral central opacities consistent with acute infiltrates and marrow edema. 08/21/2024 Patient is in the MICU. He had weaning trial yesterday and was placed on BiPAP until 6 PM and eventually he became more short of breath and obtunded. Patient was reintubated. Currently on assist-control with tidal volume 350 respiratory 20 FiO2 50% and PEEP of 5. Patient is also sedated and on tube feeding. Chest x-ray showed suboptimal study. Persisted low lung volumes and bilateral central opacities consistent with acute infiltrates and edema. Patient is on ceftriaxone empirically. Laboratory data showed WBC 7.9 hemoglobin 11.2 and platelets 161 sodium 136 potassium 3.2 chloride 103 bicarbonate 25 BUN less than 20 creatinine 0.15 and calcium 8.3. Critical care team is on board. 08/25/2024 Patient is MICU. Patient had shallow rapid breathing while on BiPAP. Become unresponsive to painful and verbal stimuli. Patient was reintubated. Bronchoscopy was done followed by intubation and showed moderate amount of thick respiratory secretions identified in the lower lung foster bilaterally and therapeutic airway suctioning was done. Patient is on tube NG feeding. Chest x-ray showed low lung volumes with perihilar opacities possibly representing pulmonary edema versus pneumonia versus atelectasis. NG tube diego ears to be in appropriate position with gaseous distention of the stomach. Laboratory data showed WBC 8.2 hemoglobin 11.2 and platelets 349 sodium 139 potassium 4.7 chloride 102 bicarb is 30 BUN 4 and creatinine 0.15 and blood sugar 112 and calcium 8.9. Critical care team is on board. Current medications reviewed. REVIEW OF SYSTEMS: Review of system cannot be obtained as patient currently intubated PHYSICAL EXAMINATION: GENERAL: The patient is intubated HEENT: Pupils are round and equally reacting to light. No scleral icterus. No conjunctival pallor. Normocephalic, atraumatic. CARDIOVASCULAR: S1 and S2 present. No murmurs, rubs, or gallops. PULMONARY: Coarse breath sound bilaterally, diminished at the bases ABDOMEN: Soft, nontender, nondistended, normoactive bowel sounds. No palpable organomegaly. MUSCULOSKELETAL: No joint swelling or deformity. EXTREMITIES: No cyanosis, clubbing, or pedal edema. NEUROLOGICAL: Intubated SKIN: No rashes. Assessment and plan Acute hypoxic respiratory failure likely secondary to right bronchial mucous plugging Possible bacterial pneumonia Sepsis secondary to above Status post brief cardiac arrest Lactic acidosis. Improved History of Duchenne's muscle dystrophy Chronic sinus tachycardia maintained on atenolol Seasonal allergic rhinitis Benign essential hypertension Monitor vital signs Monitor CBC Monitor CMP Continue telemetry monitoring Serial ABGs Continue vent management Serial chest x-rays Ordered breathing treatment Continue IV Rocephin Procalcitonin 0.53 Critical care team is on board. Continue with frequent suctioning. Labs and medication were reviewed.. Monitor labs and vitals. DVT and GI prophylaxis. Dictation was produced using [employer] dictation software. please excuse any grammatical, word or spelling errors. Objective - Vital Signs Vital signs: Vital Signs Temp 101.8 F H 08/25/24 16:00 Pulse 134 H 08/25/24 18:00 Resp 20 08/25/24 18:00 BP 94/66 08/25/24 18:00 Pulse Ox 99 08/25/24 18:00 FiO2 50 08/25/24 16:29 Intake & Output 08/24/24 08/25/24 08/25/24 18:59 06:59 18:59 Intake Total 2876.325 1542 1785.367 Output Total 1945 2200 1305 Balance 931.325 -658 480.367 Weight 76.2 kg 76.2 kg Intake: IV 2300 1100 1200 D5-0.45% NaCl with KCl 1300 1100 1200 20Meq/l 1,000 ml @ 100 mls/hr IV .Q10H [facility] Rx#: [id number] Lactated Ringers 1,000 ml 1000 @ 999 mls/hr IV .Q1H1M [facility] Rx#:[id number] Intake, IV Titration 70.325 111.367 Amount Dexmedetomidine/0.9% NaCl 1.461 (Pmx) 400 mcg In Empty Bag 1 bag @ 0.2 MCG/KG/HR 3.81 mls/hr IV .Q24H [facility] Rx#:[id number] propofoL 1,000 mg In 70.325 Empty Bag 1 bag @ 15 MCG/ KG/MIN 6.813 mls/hr IV . [id number] [facility] Rx#:[id number] propofoL 1,000 mg In 109.906 Empty Bag 1 bag @ 15 MCG/ KG/MIN 6.858 mls/hr IV . [id number] [facility] Rx#:[id number] Tube Feeding 416 352 384 Other 90 90 90 Output: Urine 1545 2200 1305 Other 400 Other: Voiding Method Indwelling Catheter Indwelling Catheter Indwelling Catheter ABP, PAP, CO, CI - Last Documented Arterial Blood Pressure 94/57 - Labs CBC & Chem 7: 08/28/24 08:26 08/28/24 08:26 Labs: Abnormal Lab Results - Last 24 Hours (Table) 08/24/24 08/24/24 08/24/24 Range/Units 21:14 21:45 23:44 RBC (4.40-5.60) 10*6/uL Hgb (13.0-17.0) g/dL Hct (39.6-50.0) % MCV (80.0-97.0) fL MCHC (32.0-37.0) g/dL MPV (9.5-12.2) fL Immature Gran # (0.00-0.04) 10*3/uL Monocytes # (0.20-1.00) 10*3/uL ABG pH (7.35-7.45) ABG pCO2 (35-45) mmHg ABG pO2 (83-108) mmHg ABG HCO3 (21-25) mmol/L ABG Total CO2 (19-24) mmol/L ABG O2 Saturation (94-97) % VBG HCO3 29 H (24-28) mmol/L Hemoglobin (13.0-17.5) gm/dL BUN (9-20) mg/dL Creatinine (0.66-1.25) mg/dL Glucose (74-99) mg/dL POC Glucose (mg/dL) 140 H 115 H (70-110) mg/dL 08/25/24 08/25/24 08/25/24 Range/Units 05:37 05:37 09:50 RBC 3.52 L (4.40-5.60) 10*6/uL Hgb 11.2 L (13.0-17.0) g/dL Hct 35.5 L (39.6-50.0) % MCV 100.9 H (80.0-97.0) fL MCHC 31.5 L (32.0-37.0) g/dL MPV 9.2 L (9.5-12.2) fL Immature Gran # 0.05 H (0.00-0.04) 10*3/uL Monocytes # 1.10 H (0.20-1.00) 10*3/uL ABG pH 7.15 L* (7.35-7.45) ABG pCO2 >98 H* (35-45) mmHg ABG pO2 126 H (83-108) mmHg ABG HCO3 (21-25) mmol/L ABG Total CO2 (19-24) mmol/L ABG O2 Saturation 98.4 H (94-97) % VBG HCO3 (24-28) mmol/L Hemoglobin 11.5 L (13.0-17.5) gm/dL BUN 4 L (9-20) mg/dL Creatinine <0.15 L (0.66-1.25) mg/dL Glucose 112 H (74-99) mg/dL POC Glucose (mg/dL) (70-110) mg/dL 08/25/24 08/25/24 Range/Units 12:24 12:30 RBC (4.40-5.60) 10*6/uL Hgb (13.0-17.0) g/dL Hct (39.6-50.0) % MCV (80.0-97.0) fL MCHC (32.0-37.0) g/dL MPV (9.5-12.2) fL Immature Gran # (0.00-0.04) 10*3/uL Monocytes # (0.20-1.00) 10*3/uL ABG pH (7.35-7.45) ABG pCO2 59 H (35-45) mmHg ABG pO2 255 H (83-108) mmHg ABG HCO3 35 H (21-25) mmol/L ABG Total CO2 37 H (19-24) mmol/L ABG O2 Saturation >100.0 H (94-97) % VBG HCO3 (24-28) mmol/L Hemoglobin 11.1 L (13.0-17.5) gm/dL BUN (9-20) mg/dL Creatinine (0.66-1.25) mg/dL Glucose (74-99) mg/dL POC Glucose (mg/dL) 167 H (70-110) mg/dL
--- NOTE | 2024-08-28 21:54 | P.PN ---
Subjective Progress Note Date: 08/26/24 History of present illness; patient is a 24-year-old gentleman with past medical history significant for Duchenne muscular dystrophy who presents the ER from home for respiratory distress. Apparently patient was all right yesterday morning when while at home patient starting having cough and started having shortness of breath. Patient started gasping for air, patient went unresponsive, patient family started CPR and EMS was called. Patient had CPR for approximately 5 minutes. EMS arrived at the spot and bagged en route to the hospital. In the ER, patient was continued to have respiratory distress and was intubated Initial lab work done in the ER showed WBC 7.01, hemoglobin 14.2, platelet count 413 sodium 138, potassium 3.7, chloride 99, BUN 9, creatinine 0.19, glucose 215, lactate 7, AST 61, troponin 0.034 UA done showed no infection EKG done in the ER showed heart rate of , no ST segment elevation or depression seen, no T-wave inversions seen. Chest x-ray done in the ER showed endotracheal tube in the left main bronchus, retraction recommended of 2 to 3 cm. gaseous distention of bowel and stomach CT chest PE protocol done showed no evidence of PE, no evidence of bowel obstruction. Secretions in the right lower lobe and right middle lobe airways with atelectasis of the right middle lobe Patient admitted to internal medicine service 08/18/2024 Patient is in the ICU. Intubated and sedated and on mechanical ventilator. Assist-control with respiratory rate 22, tidal volume 350 FiO2 40% and PEEP of 5. Chest x-ray showed severe thoracic deformity secondary to underlying scolio sis limiting the evaluation. Improving aeration on the left. Hazy density feeling most of the right side of the chest suspected pleural effusion with underlying atelectasis and/or consolidation likely similar. Patient had antibiotic ceftriaxone. Also on IV hydration with D5 normal saline at 100 cc/h. Laboratory data showed WBC 13.8 hemoglobin 11.9 and platelets 252 sodium 133 potassium 2.1 chloride 104 bicarb is 21 BUN less than 20 creatinine 0.15 and blood sugar 129 and calcium 8.2. Critical care team on board. 08/19/2024 Patient is in the MICU. Intubated, sedated and on mechanical ventilator. Continued on IV antibiotics and follow ceftriaxone 1 g IV PV and also on IV hydration with normal saline. Patient was also started on tube feeding at 40 cc/h. Laboratory data showed WBC 10.3 hemoglobin 11.8 and platelets 253 BUN 4 and creatinine 0.15 and calcium 8.1. Chest x-ray this morning showed severely limited exam due to combination of thoracic deformity, positioning and sitting down. Unable to visualize ET tube. Suspect underlying sizable right pleural effusion with adjacent atelectasis and/or consolidation. 08/20/2024 Patient is in the MICU. On mechanical ventilator. Sedation is on hold.. Failed weaning trial yesterday. Currently on assist-control with respirate rate of 20 tidal volume 350 FiO2 30% and PEEP of 5. Patient remains on antibiotics in the form of ceftriaxone 1 g daily. Chest x-ray showed suboptimal study. Low-lying endotracheal tube should be pulled back 1 to 2 cm to be more ideal position. Persistent low lung volumes and bilateral central opacities consistent with acute infiltrates and marrow edema. 08/21/2024 Patient is in the MICU. He had weaning trial yesterday and was placed on BiPAP until 6 PM and eventually he became more short of breath and obtunded. Patient was reintubated. Currently on assist-control with tidal volume 350 respiratory 20 FiO2 50% and PEEP of 5. Patient is also sedated and on tube feeding. Chest x-ray showed suboptimal study. Persisted low lung volumes and bilateral central opacities consistent with acute infiltrates and edema. Patient is on ceftriaxone empirically. Laboratory data showed WBC 7.9 hemoglobin 11.2 and platelets 161 sodium 136 potassium 3.2 chloride 103 bicarbonate 25 BUN less than 20 creatinine 0.15 and calcium 8.3. Critical care team is on board. 08/25/2024 Patient is MICU. Patient had shallow rapid breathing while on BiPAP. Become unresponsive to painful and verbal stimuli. Patient was reintubated. Bronchoscopy was done followed by intubation and showed moderate amount of thick respiratory secretions identified in the lower lung foster bilaterally and therapeutic airway suctioning was done. Patient is on tube NG feeding. Chest x-ray showed low lung volumes with perihilar opacities possibly representing pulmonary edema versus pneumonia versus atelectasis. NG tube diego ears to be in appropriate position with gaseous distention of the stomach. Laboratory data showed WBC 8.2 hemoglobin 11.2 and platelets 349 sodium 139 potassium 4.7 chloride 102 bicarb is 30 BUN 4 and creatinine 0.15 and blood sugar 112 and calcium 8.9. Critical care team is on board. 08/26/2024 Patient is in the MICU. On mechanical ventilator. Sedation is off. Currently on his control with tidal volume 350, respiratory rate 20, FiO2 50% with a PEEP of 5. Chest x-ray showed right lower lobe consolidation along with severe kyphoscoliosis of the spine. NG tube feeding. BAL cultures pending. Currently on antibiotics. Laboratory data showed WBC 8.27, hemoglobin 9.9 and platelets 404, sodium 134 potassium 4.0 chloride 101 bicarb is 30 BUN 7 and creatinine 0.15 and blood sugar 123. Calcium 8.6. Current medications reviewed. REVIEW OF SYSTEMS: Review of system cannot be obtained as patient currently intubated PHYSICAL EXAMINATION: GENERAL: The patient is intubated HEENT: Pupils are round and equally reacting to light. No scleral icterus. No conjunctival pallor. Normocephalic, atraumatic. CARDIOVASCULAR: S1 and S2 present. No murmurs, rubs, or gallops. PULMONARY: Coarse breath sound bilaterally, diminished at the bases ABDOMEN: Soft, nontender, nondistended, normoactive bowel sounds. No palpable organomegaly. MUSCULOSKELETAL: No joint swelling or deformity. EXTREMITIES: No cyanosis, clubbing, or pedal edema. NEUROLOGICAL: Intubated SKIN: No rashes. Assessment and plan Acute hypoxic respiratory failure likely secondary to right bronchial mucous plugging. Patient was reintubated on 08/25/2024. Status post bronchoscopy. Possible bacterial pneumonia Sepsis secondary to above Status post brief cardiac arrest Lactic acidosis. Improved History of Duchenne's muscle dystrophy Chronic sinus tachycardia maintained on atenolol Seasonal allergic rhinitis Benign essential hypertension Monitor vital signs Monitor CBC Monitor CMP Continue telemetry monitoring Serial ABGs Continue vent management Serial chest x-rays Ordered breathing treatment Continue IV Rocephin empirically. Procalcitonin 0.53 Critical care team is on board. Continue with frequent suctioning. Status post bronchoscopy. Follow-up BAL cultures. Labs and medication were reviewed.. Monitor labs and vitals. DVT and GI prophylaxis. Dictation was produced using [employer] software. please excuse any grammatical, word or spelling errors. Objective - Vital Signs Vital signs: Vital Signs Temp 98.4 F 08/26/24 20:00 Pulse 96 08/26/24 21:00 Resp 16 08/26/24 21:00 BP 90/52 08/26/24 21:00 Pulse Ox 98 08/26/24 21:00 FiO2 40 08/26/24 20:00 Intake & Output 08/26/24 08/26/24 08/27/24 06:59 18:59 06:59 Intake Total 1752 2268.821 498.247 Output Total 1150 1850 550 Balance 602 418.821 -51.753 Weight 80.5 kg 80.5 kg Intake: IV 1336 1733 309 D5-0.45% NaCl with KCl 1300 1100 300 20Meq/l 1,000 ml @ 100 mls/hr IV .Q10H [facility] Rx#: [id number] Piperacillin-Tazobactam 3 100 .375 gm In Sodium Chloride 0.9% 100 ml @ 25 mls/hr IVPB Q8HR [facility] Rx# :[id number] Pressure Bag 36 33 9 Vancomycin 1,500 mg In 500 Sodium Chloride 0.9% 500 ml 500 ml @ 167 mls/hr IVPB Q12H [facility] Rx#: [id number] Intake, IV Titration 93.821 63.247 Amount Dexmedetomidine/0.9% NaCl 93.821 63.247 (Pmx) 400 mcg In Empty Bag 1 bag @ 0.2 MCG/KG/HR 3.81 mls/hr IV .Q24H [facility] Rx#:[id number] Tube Feeding 416 352 96 Other 90 30 Output: Urine 1150 1850 550 Other: Voiding Method Indwelling Catheter Indwelling Catheter Indwelling Catheter ABP, PAP, CO, CI - Last Documented Arterial Blood Pressure 85/62 - Labs CBC & Chem 7: 08/28/24 08:26 08/28/24 08:26 Labs: Abnormal Lab Results - Last 24 Hours (Table) 08/26/24 08/26/24 08/26/24 Range/Units 00:04 04:30 04:30 RBC 3.11 L (4.40-5.60) 10*6/uL Hgb 9.9 L (13.0-17.0) g/dL Hct 30.4 L (39.6-50.0) % MCV 97.7 H (80.0-97.0) fL MPV 8.8 L (9.5-12.2) fL Immature Gran # 0.07 H (0.00-0.04) 10*3/uL ABG pH (7.35-7.45) ABG pO2 (83-108) mmHg ABG HCO3 (21-25) mmol/L ABG Total CO2 (19-24) mmol/L ABG O2 Saturation (94-97) % Hemoglobin (13.0-17.5) gm/dL Sodium 134 L (137-145) mmol/L BUN 7 L (9-20) mg/dL Creatinine <0.15 L (0.66-1.25) mg/dL Glucose 123 H (74-99) mg/dL POC Glucose (mg/dL) 117 H (70-110) mg/dL 08/26/24 08/26/24 08/26/24 Range/Units 04:31 05:15 11:43 RBC (4.40-5.60) 10*6/uL Hgb (13.0-17.0) g/dL Hct (39.6-50.0) % MCV (80.0-97.0) fL MPV (9.5-12.2) fL Immature Gran # (0.00-0.04) 10*3/uL ABG pH 7.48 H (7.35-7.45) ABG pO2 118 H (83-108) mmHg ABG HCO3 31 H (21-25) mmol/L ABG Total CO2 32 H (19-24) mmol/L ABG O2 Saturation 99.5 H (94-97) % Hemoglobin 10.1 L (13.0-17.5) gm/dL Sodium (137-145) mmol/L BUN (9-20) mg/dL Creatinine (0.66-1.25) mg/dL Glucose (74-99) mg/dL POC Glucose (mg/dL) 124 H 123 H (70-110) mg/dL 08/26/24 Range/Units 18:30 RBC (4.40-5.60) 10*6/uL Hgb (13.0-17.0) g/dL Hct (39.6-50.0) % MCV (80.0-97.0) fL MPV (9.5-12.2) fL Immature Gran # (0.00-0.04) 10*3/uL ABG pH (7.35-7.45) ABG pO2 (83-108) mmHg ABG HCO3 (21-25) mmol/L ABG Total CO2 (19-24) mmol/L ABG O2 Saturation (94-97) % Hemoglobin (13.0-17.5) gm/dL Sodium (137-145) mmol/L BUN (9-20) mg/dL Creatinine (0.66-1.25) mg/dL Glucose (74-99) mg/dL POC Glucose (mg/dL) 150 H (70-110) mg/dL Microbiology - Last 24 Hours (Table) 08/25/24 12:05 Gram Stain - Preliminary Bronchoalviolar Lavage - Right Bronchial Washings Culture - Preliminary
--- NOTE | 2024-08-28 22:01 | P.PN ---
Subjective Progress Note Date: 08/27/24 History of present illness; patient is a 24-year-old gentleman with past medical history significant for Duchenne muscular dystrophy who presents the ER from home for respiratory distress. Apparently patient was all right yesterday morning when while at home patient starting having cough and started having shortness of breath. Patient started gasping for air, patient went unresponsive, patient family started CPR and EMS was called. Patient had CPR for approximately 5 minutes. EMS arrived at the spot and bagged en route to the hospital. In the ER, patient was continued to have respiratory distress and was intubated Initial lab work done in the ER showed WBC 7.01, hemoglobin 14.2, platelet count 413 sodium 138, potassium 3.7, chloride 99, BUN 9, creatinine 0.19, glucose 215, lactate 7, AST 61, troponin 0.034 UA done showed no infection EKG done in the ER showed heart rate of , no ST segment elevation or depression seen, no T-wave inversions seen. Chest x-ray done in the ER showed endotracheal tube in the left main bronchus, retraction recommended of 2 to 3 cm. gaseous distention of bowel and stomach CT chest PE protocol done showed no evidence of PE, no evidence of bowel obstruction. Secretions in the right lower lobe and right middle lobe airways with atelectasis of the right middle lobe Patient admitted to internal medicine service 08/18/2024 Patient is in the ICU. Intubated and sedated and on mechanical ventilator. Assist-control with respiratory rate 22, tidal volume 350 FiO2 40% and PEEP of 5. Chest x-ray showed severe thoracic deformity secondary to underlying scolio sis limiting the evaluation. Improving aeration on the left. Hazy density feeling most of the right side of the chest suspected pleural effusion with underlying atelectasis and/or consolidation likely similar. Patient had antibiotic ceftriaxone. Also on IV hydration with D5 normal saline at 100 cc/h. Laboratory data showed WBC 13.8 hemoglobin 11.9 and platelets 252 sodium 133 potassium 2.1 chloride 104 bicarb is 21 BUN less than 20 creatinine 0.15 and blood sugar 129 and calcium 8.2. Critical care team on board. 08/19/2024 Patient is in the MICU. Intubated, sedated and on mechanical ventilator. Continued on IV antibiotics and follow ceftriaxone 1 g IV PV and also on IV hydration with normal saline. Patient was also started on tube feeding at 40 cc/h. Laboratory data showed WBC 10.3 hemoglobin 11.8 and platelets 253 BUN 4 and creatinine 0.15 and calcium 8.1. Chest x-ray this morning showed severely limited exam due to combination of thoracic deformity, positioning and sitting down. Unable to visualize ET tube. Suspect underlying sizable right pleural effusion with adjacent atelectasis and/or consolidation. 08/20/2024 Patient is in the MICU. On mechanical ventilator. Sedation is on hold.. Failed weaning trial yesterday. Currently on assist-control with respirate rate of 20 tidal volume 350 FiO2 30% and PEEP of 5. Patient remains on antibiotics in the form of ceftriaxone 1 g daily. Chest x-ray showed suboptimal study. Low-lying endotracheal tube should be pulled back 1 to 2 cm to be more ideal position. Persistent low lung volumes and bilateral central opacities consistent with acute infiltrates and marrow edema. 08/21/2024 Patient is in the MICU. He had weaning trial yesterday and was placed on BiPAP until 6 PM and eventually he became more short of breath and obtunded. Patient was reintubated. Currently on assist-control with tidal volume 350 respiratory 20 FiO2 50% and PEEP of 5. Patient is also sedated and on tube feeding. Chest x-ray showed suboptimal study. Persisted low lung volumes and bilateral central opacities consistent with acute infiltrates and edema. Patient is on ceftriaxone empirically. Laboratory data showed WBC 7.9 hemoglobin 11.2 and platelets 161 sodium 136 potassium 3.2 chloride 103 bicarbonate 25 BUN less than 20 creatinine 0.15 and calcium 8.3. Critical care team is on board. 08/25/2024 Patient is MICU. Patient had shallow rapid breathing while on BiPAP. Become unresponsive to painful and verbal stimuli. Patient was reintubated. Bronchoscopy was done followed by intubation and showed moderate amount of thick respiratory secretions identified in the lower lung foster bilaterally and therapeutic airway suctioning was done. Patient is on tube NG feeding. Chest x-ray showed low lung volumes with perihilar opacities possibly representing pulmonary edema versus pneumonia versus atelectasis. NG tube diego ears to be in appropriate position with gaseous distention of the stomach. Laboratory data showed WBC 8.2 hemoglobin 11.2 and platelets 349 sodium 139 potassium 4.7 chloride 102 bicarb is 30 BUN 4 and creatinine 0.15 and blood sugar 112 and calcium 8.9. Critical care team is on board. 08/26/2024 Patient is in the MICU. On mechanical ventilator. Sedation is off. Currently on his control with tidal volume 350, respiratory rate 20, FiO2 50% with a PEEP of 5. Chest x-ray showed right lower lobe consolidation along with severe kyphoscoliosis of the spine. NG tube feeding. BAL cultures pending. Currently on antibiotics. Laboratory data showed WBC 8.27, hemoglobin 9.9 and platelets 404, sodium 134 potassium 4.0 chloride 101 bicarb is 30 BUN 7 and creatinine 0.15 and blood sugar 123. Calcium 8.6. 08/27/2024 Patient is in the MICU. Awake and alert. On mechanical ventilator., Assist-c ontrol respiratory rate 14 tidal volume 350 FiO2 40% and PEEP of 5. Currently on Precedex at 0.7 mcg/kg/min. Tolerating NG tube feeding. On IV hydration with D5 half-normal saline at 100 cc/h. Laboratory data showed WBC 6.8 hemoglobin 10.1 and platelets 405 sodium 138 potassium 4.0 chloride 103 bicarb is 27 BUN 4 and creatinine 0.15 and blood sugar 117 and calcium 8.9. BAL cultures showed no growth. Family is agreeable for tracheostomy if BiPAP fails. Current medications reviewed. REVIEW OF SYSTEMS: Review of system cannot be obtained as patient currently intubated PHYSICAL EXAMINATION: GENERAL: The patient is intubated HEENT: Pupils are round and equally reacting to light. No scleral icterus. No conjunctival pallor. Normocephalic, atraumatic. CARDIOVASCULAR: S1 and S2 present. No murmurs, rubs, or gallops. PULMONARY: Coarse breath sound bilaterally, diminished at the bases ABDOMEN: Soft, nontender, nondistended, normoactive bowel sounds. No palpable organomegaly. MUSCULOSKELETAL: No joint swelling or deformity. EXTREMITIES: No cyanosis, clubbing, or pedal edema. NEUROLOGICAL: Intubated SKIN: No rashes. Assessment and plan Acute hypoxic respiratory failure likely secondary to right bronchial mucous plugging. Patient was reintubated on 08/25/2024. Status post bronchoscopy. BAL cultures negative. Possible bacterial pneumonia Sepsis secondary to above Status post brief cardiac arrest Lactic acidosis. Improved History of Duchenne's muscle dystrophy Chronic sinus tachycardia maintained on atenolol Seasonal allergic rhinitis Benign essential hypertension Monitor vital signs Monitor CBC Monitor CMP Continue telemetry monitoring Serial ABGs Continue vent management Serial chest x-rays Ordered breathing treatment Continue IV Rocephin empirically. Procalcitonin 0.53 Critical care team is on board. Continue with frequent suctioning. Status post bronchoscopy. Follow-up BAL cultures negative. Family is agreeable for tracheostomy if BiPAP fails. General surgery is on board. Labs and medication were reviewed.. Monitor labs and vitals. DVT and GI prophylaxis. Dictation was produced using [employer] dictation software. please excuse any grammatical, word or spelling errors. Objective - Vital Signs Vital signs: Vital Signs Temp 98.8 F 08/27/24 20:00 Pulse 93 08/27/24 22:42 Resp 24 08/27/24 21:00 BP 85/51 08/27/24 21:00 Pulse Ox 100 08/27/24 21:00 FiO2 90 08/27/24 22:42 Intake & Output 08/27/24 08/27/24 08/28/24 06:59 18:59 06:59 Intake Total 2221.431 1495.183 281.817 Output Total 1700 3945 350 Balance 521.431 -2449.817 -68.183 Weight 79.8 kg Intake: IV 1733 1396 189 D5-0.45% NaCl with KCl 1100 660 80 20Meq/l 1,000 ml @ 40 mls /hr IV .Q24H [facility] Rx#: [id number] Piperacillin-Tazobactam 3 100 200 100 .375 gm In Sodium Chloride 0.9% 100 ml @ 25 mls/hr IVPB Q8HR [facility] Rx# :[id number] Pressure Bag 33 36 9 Vancomycin 1,500 mg In 500 500 Sodium Chloride 0.9% 500 ml 500 ml @ 167 mls/hr IVPB Q12H [facility] Rx#: [id number] Intake, IV Titration 140.431 67.183 32.817 Amount Dexmedetomidine/0.9% NaCl 140.431 67.183 32.817 (Pmx) 400 mcg In Empty Bag 1 bag @ 0.2 MCG/KG/HR 3.81 mls/hr IV .Q24H [facility] Rx#:[id number] Tube Feeding 288 32 Other 60 60 Output: Urine 1700 3945 350 Other: Voiding Method Indwelling Catheter Indwelling Catheter Indwelling Catheter ABP, PAP, CO, CI - Last Documented Arterial Blood Pressure 77/60 - Labs CBC & Chem 7: 08/28/24 08:26 08/28/24 08:26 Labs: Abnormal Lab Results - Last 24 Hours (Table) 08/27/24 08/27/24 08/27/24 Range/Units 00:58 03:16 03:16 RBC 3.21 L (4.40-5.60) 10*6/uL Hgb 10.1 L (13.0-17.0) g/dL Hct 32.0 L (39.6-50.0) % MCV 99.7 H (80.0-97.0) fL MCHC 31.6 L (32.0-37.0) g/dL MPV 8.6 L (9.5-12.2) fL ABG pH (7.35-7.45) ABG pCO2 (35-45) mmHg ABG pO2 (83-108) mmHg ABG HCO3 (21-25) mmol/L ABG Total CO2 (19-24) mmol/L ABG O2 Saturation (94-97) % Hemoglobin (13.0-17.5) gm/dL BUN 4 L (9-20) mg/dL Creatinine <0.15 L (0.66-1.25) mg/dL Glucose 117 H (74-99) mg/dL POC Glucose (mg/dL) 138 H (70-110) mg/dL 08/27/24 08/27/24 08/27/24 Range/Units 05:28 06:58 10:18 RBC (4.40-5.60) 10*6/uL Hgb (13.0-17.0) g/dL Hct (39.6-50.0) % MCV (80.0-97.0) fL MCHC (32.0-37.0) g/dL MPV (9.5-12.2) fL ABG pH (7.35-7.45) ABG pCO2 46 H 56 H (35-45) mmHg ABG pO2 159 H 123 H (83-108) mmHg ABG HCO3 30 H 34 H (21-25) mmol/L ABG Total CO2 32 H 36 H (19-24) mmol/L ABG O2 Saturation 99.9 H 99.3 H (94-97) % Hemoglobin 10.2 L 10.4 L (13.0-17.5) gm/dL BUN (9-20) mg/dL Creatinine (0.66-1.25) mg/dL Glucose (74-99) mg/dL POC Glucose (mg/dL) 149 H (70-110) mg/dL 08/27/24 08/27/24 08/27/24 Range/Units 14:48 15:25 18:19 RBC (4.40-5.60) 10*6/uL Hgb (13.0-17.0) g/dL Hct (39.6-50.0) % MCV (80.0-97.0) fL MCHC (32.0-37.0) g/dL MPV (9.5-12.2) fL ABG pH 7.34 L (7.35-7.45) ABG pCO2 60 H 63 H (35-45) mmHg ABG pO2 159 H (83-108) mmHg ABG HCO3 36 H 34 H (21-25) mmol/L ABG Total CO2 38 H 36 H (19-24) mmol/L ABG O2 Saturation 99.7 H (94-97) % Hemoglobin 10.8 L 11.0 L (13.0-17.5) gm/dL BUN (9-20) mg/dL Creatinine (0.66-1.25) mg/dL Glucose (74-99) mg/dL POC Glucose (mg/dL) 119 H (70-110) mg/dL Microbiology - Last 24 Hours (Table) 08/25/24 12:05 Gram Stain - Final Bronchoalviolar Lavage - Right Bronchial Washings Culture - Final
--- NOTE | 2024-08-28 22:04 | P.PN ---
Subjective Progress Note Date: 08/28/24 History of present illness; patient is a 24-year-old gentleman with past medical history significant for Duchenne muscular dystrophy who presents the ER from home for respiratory distress. Apparently patient was all right yesterday morning when while at home patient starting having cough and started having shortness of breath. Patient started gasping for air, patient went unresponsive, patient family started CPR and EMS was called. Patient had CPR for approximately 5 minutes. EMS arrived at the spot and bagged en route to the hospital. In the ER, patient was continued to have respiratory distress and was intubated Initial lab work done in the ER showed WBC 7.01, hemoglobin 14.2, platelet count 413 sodium 138, potassium 3.7, chloride 99, BUN 9, creatinine 0.19, glucose 215, lactate 7, AST 61, troponin 0.034 UA done showed no infection EKG done in the ER showed heart rate of , no ST segment elevation or depression seen, no T-wave inversions seen. Chest x-ray done in the ER showed endotracheal tube in the left main bronchus, retraction recommended of 2 to 3 cm. gaseous distention of bowel and stomach CT chest PE protocol done showed no evidence of PE, no evidence of bowel obstruction. Secretions in the right lower lobe and right middle lobe airways with atelectasis of the right middle lobe Patient admitted to internal medicine service 08/18/2024 Patient is in the ICU. Intubated and sedated and on mechanical ventilator. Assist-control with respiratory rate 22, tidal volume 350 FiO2 40% and PEEP of 5. Chest x-ray showed severe thoracic deformity secondary to underlying scolio sis limiting the evaluation. Improving aeration on the left. Hazy density feeling most of the right side of the chest suspected pleural effusion with underlying atelectasis and/or consolidation likely similar. Patient had antibiotic ceftriaxone. Also on IV hydration with D5 normal saline at 100 cc/h. Laboratory data showed WBC 13.8 hemoglobin 11.9 and platelets 252 sodium 133 potassium 2.1 chloride 104 bicarb is 21 BUN less than 20 creatinine 0.15 and blood sugar 129 and calcium 8.2. Critical care team on board. 08/19/2024 Patient is in the MICU. Intubated, sedated and on mechanical ventilator. Continued on IV antibiotics and follow ceftriaxone 1 g IV PV and also on IV hydration with normal saline. Patient was also started on tube feeding at 40 cc/h. Laboratory data showed WBC 10.3 hemoglobin 11.8 and platelets 253 BUN 4 and creatinine 0.15 and calcium 8.1. Chest x-ray this morning showed severely limited exam due to combination of thoracic deformity, positioning and sitting down. Unable to visualize ET tube. Suspect underlying sizable right pleural effusion with adjacent atelectasis and/or consolidation. 08/20/2024 Patient is in the MICU. On mechanical ventilator. Sedation is on hold.. Failed weaning trial yesterday. Currently on assist-control with respirate rate of 20 tidal volume 350 FiO2 30% and PEEP of 5. Patient remains on antibiotics in the form of ceftriaxone 1 g daily. Chest x-ray showed suboptimal study. Low-lying endotracheal tube should be pulled back 1 to 2 cm to be more ideal position. Persistent low lung volumes and bilateral central opacities consistent with acute infiltrates and marrow edema. 08/21/2024 Patient is in the MICU. He had weaning trial yesterday and was placed on BiPAP until 6 PM and eventually he became more short of breath and obtunded. Patient was reintubated. Currently on assist-control with tidal volume 350 respiratory 20 FiO2 50% and PEEP of 5. Patient is also sedated and on tube feeding. Chest x-ray showed suboptimal study. Persisted low lung volumes and bilateral central opacities consistent with acute infiltrates and edema. Patient is on ceftriaxone empirically. Laboratory data showed WBC 7.9 hemoglobin 11.2 and platelets 161 sodium 136 potassium 3.2 chloride 103 bicarbonate 25 BUN less than 20 creatinine 0.15 and calcium 8.3. Critical care team is on board. 08/25/2024 Patient is MICU. Patient had shallow rapid breathing while on BiPAP. Become unresponsive to painful and verbal stimuli. Patient was reintubated. Bronchoscopy was done followed by intubation and showed moderate amount of thick respiratory secretions identified in the lower lung foster bilaterally and therapeutic airway suctioning was done. Patient is on tube NG feeding. Chest x-ray showed low lung volumes with perihilar opacities possibly representing pulmonary edema versus pneumonia versus atelectasis. NG tube diego ears to be in appropriate position with gaseous distention of the stomach. Laboratory data showed WBC 8.2 hemoglobin 11.2 and platelets 349 sodium 139 potassium 4.7 chloride 102 bicarb is 30 BUN 4 and creatinine 0.15 and blood sugar 112 and calcium 8.9. Critical care team is on board. 08/26/2024 Patient is in the MICU. On mechanical ventilator. Sedation is off. Currently on his control with tidal volume 350, respiratory rate 20, FiO2 50% with a PEEP of 5. Chest x-ray showed right lower lobe consolidation along with severe kyphoscoliosis of the spine. NG tube feeding. BAL cultures pending. Currently on antibiotics. Laboratory data showed WBC 8.27, hemoglobin 9.9 and platelets 404, sodium 134 potassium 4.0 chloride 101 bicarb is 30 BUN 7 and creatinine 0.15 and blood sugar 123. Calcium 8.6. 08/27/2024 Patient is in the MICU. Awake and alert. On mechanical ventilator., Assist-c ontrol respiratory rate 14 tidal volume 350 FiO2 40% and PEEP of 5. Currently on Precedex at 0.7 mcg/kg/min. Tolerating NG tube feeding. On IV hydration with D5 half-normal saline at 100 cc/h. Laboratory data showed WBC 6.8 hemoglobin 10.1 and platelets 405 sodium 138 potassium 4.0 chloride 103 bicarb is 27 BUN 4 and creatinine 0.15 and blood sugar 117 and calcium 8.9. BAL cultures showed no growth. Family is agreeable for tracheostomy if BiPAP fails. 08/28/2024 Patient is in the MICU. Patient is awake and alert. Trying to communicate. Patient is currently on BiPAP 10 /15 and FiO2 weaned down to 50% this morning. Continued on IV hydration with D5 half normal saline and NG tube feeding. Cultures negative. Antibiotics have been discontinued. Patient was given a dose of IV Lasix 20 mg x 1 today. Chest x-ray showed stable appearance of lungs which are obscured because of patient positioning. Laboratory data showed WBC 6.1 hemoglobin 10.8 and platelets 399 sodium 139 potassium 4.3 chloride 100 bicarb is 33 BUN 5 and creatinine 0.15 and blood sugar 113 and calcium 9.2. Current medications reviewed. REVIEW OF SYSTEMS: Review of system cannot be obtained as patient currently intubated PHYSICAL EXAMINATION: GENERAL: The patient is intubated HEENT: Pupils are round and equally reacting to light. No scleral icterus. No conjunctival pallor. Normocephalic, atraumatic. CARDIOVASCULAR: S1 and S2 present. No murmurs, rubs, or gallops. PULMONARY: Coarse breath sound bilaterally, diminished at the bases ABDOMEN: Soft, nontender, nondistended, normoactive bowel sounds. No palpable organomegaly. MUSCULOSKELETAL: No joint swelling or deformity. EXTREMITIES: No cyanosis, clubbing, or pedal edema. NEUROLOGICAL: Intubated SKIN: No rashes. Assessment and plan Acute hypoxic respiratory failure likely secondary to right bronchial mucous plugging. Patient was reintubated on 08/25/2024. Status post bronchoscopy. BAL cultures negative. Patient was extubated on 08/27/2024. Tolerating BiPAP. Possible bacterial pneumonia Sepsis secondary to above Status post brief cardiac arrest Lactic acidosis. Improved History of Duchenne's muscle dystrophy Chronic sinus tachycardia maintained on atenolol Seasonal allergic rhinitis Benign essential hypertension Monitor vital signs Monitor CBC Monitor CMP Continue telemetry monitoring Serial ABGs Serial chest x-rays Ordered breathing treatment Antibiotics have been discontinued. Continue with IV hydration Critical care team is on board. Continue with frequent suctioning. Status post bronchoscopy on 08/25/2024. Follow-up BAL cultures negative. Currently on BiPAP. Family is agreeable for tracheostomy if BiPAP fails. General surgery is on board. Labs and medication were reviewed.. Monitor labs and vitals. DVT and GI prophylaxis. Dictation was produced using [employer] dictation software. please excuse any grammatical, word or spelling errors. Objective - Vital Signs Vital signs: Vital Signs Temp 98.0 F 08/28/24 04:00 Pulse 76 08/28/24 19:00 Resp 29 H 08/28/24 19:00 BP 100/70 08/28/24 19:00 Pulse Ox 100 08/28/24 19:00 FiO2 65 08/28/24 19:43 Intake & Output 08/28/24 08/28/24 08/29/24 06:59 18:59 06:59 Intake Total 494.603 77.196 90.679 Output Total 1150 2545 Balance -655.397 -2467.804 90.679 Weight 79.9 kg Intake: IV 216 3 D5-0.45% NaCl with KCl 80 20Meq/l 1,000 ml @ 40 mls /hr IV .Q24H [facility] Rx#: [id number] Piperacillin-Tazobactam 3 100 .375 gm In Sodium Chloride 0.9% 100 ml @ 25 mls/hr IVPB Q8HR [facility] Rx# :[id number] Pressure Bag 36 3 Intake, IV Titration 98.603 44.196 90.679 Amount Dexmedetomidine/0.9% NaCl 98.603 44.196 87.046 (Pmx) 400 mcg In Empty Bag 1 bag @ 0.2 MCG/KG/HR 3.81 mls/hr IV .Q24H [facility] Rx#:[id number] Morphine Sulfate 100 mg 3.633 In Sodium Chloride 0.9% 90 ml @ 2 MG/HR 2 mls/hr IV .Q24H [facility] Rx#: [id number] Other 180 30 Output: Urine 1150 2545 Other: Voiding Method Indwelling Catheter Indwelling Catheter ABP, PAP, CO, CI - Last Documented Arterial Blood Pressure 62/59 - Labs CBC & Chem 7: 08/28/24 08:26 08/28/24 08:26 Labs: Abnormal Lab Results - Last 24 Hours (Table) 08/27/24 08/28/24 08/28/24 Range/Units 23:35 05:28 08:26 RBC 3.42 L (4.40-5.60) 10*6/uL Hgb 10.8 L (13.0-17.0) g/dL Hct 34.1 L (39.6-50.0) % MCV 99.7 H (80.0-97.0) fL MCHC 31.7 L (32.0-37.0) g/dL MPV 8.7 L (9.5-12.2) fL Carbon Dioxide (22-30) mmol/L BUN (9-20) mg/dL Creatinine (0.66-1.25) mg/dL Glucose (74-99) mg/dL POC Glucose (mg/dL) 113 H 115 H (70-110) mg/dL 08/28/24 08/28/24 Range/Units 08:26 11:17 RBC (4.40-5.60) 10*6/uL Hgb (13.0-17.0) g/dL Hct (39.6-50.0) % MCV (80.0-97.0) fL MCHC (32.0-37.0) g/dL MPV (9.5-12.2) fL Carbon Dioxide 33 H (22-30) mmol/L BUN 5 L (9-20) mg/dL Creatinine <0.15 L (0.66-1.25) mg/dL Glucose 113 H (74-99) mg/dL POC Glucose (mg/dL) 116 H (70-110) mg/dL
[2024-08-28] MEDS: LORazepam 1 MG/0.5 ML VIAL IV PRN (23:26)
[2024-08-29 04:04] VITALS: BP 107/68; PULSE 144; RESP 30
--- NOTE | 2024-09-01 10:29 | P.DS ---
Providers Date of admission: 08/16/24 20:06 Expected date of discharge: 08/28/24 Attending physician: Estella Alvarez Consults: 08/16/24 20:03 Consult Physician Stat Consulting Provider: Kierra Soto Consult Reason/Comments: cardiac/respiratory arrest, vent dependance Do you want consulting provider notified?: Already Contacted 08/26/24 10:33 Consult Physician Routine Consulting Provider: Héctor Aleman Consult Reason/Comments: Tracheostomy and PEG tube placement Do you want consulting provider notified?: Yes Primary care physician: Ervin More DO Hospital Course: Final diagnosis Acute hypoxic respiratory failure likely secondary to right bronchial mucous plugging. Patient was reintubated on 08/25/2024. Status post bronchoscopy. BAL cultures negative. Patient was extubated on 08/27/2024. Clinically declining Possible bacterial pneumonia Sepsis secondary to above Status post brief cardiac arrest Lactic acidosis. Improved History of Duchenne's muscle dystrophy Chronic sinus tachycardia maintained on atenolol Seasonal allergic rhinitis Benign essential hypertension Discharge disposition Patient being transition to comfort care measures per family. Total time taken is greater than 35 minutes. Hospital course History of present illness; patient is a 24-year-old gentleman with past medical history significant for Duchenne muscular dystrophy who presents the ER from home for respiratory distress. Apparently patient was all right yesterday morning when while at home patient starting having cough and started having shortness of breath. Patient started gasping for air, patient went unresponsive, patient family started CPR and EMS was called. Patient had CPR for approximately 5 minutes. EMS arrived at the spot and bagged en route to the hospital. In the ER, patient was continued to have respiratory distress and was intubated Initial lab work done in the ER showed WBC 7.01, hemoglobin 14.2, platelet count 413 sodium 138, potassium 3.7, chloride 99, BUN 9, creatinine 0.19, glucose 215, lactate 7, AST 61, troponin 0.034 UA done showed no infection EKG done in the ER showed heart rate of , no ST segment elevation or depression seen, no T-wave inversions seen. Chest x-ray done in the ER showed endotracheal tube in the left main bronchus, retraction recommended of 2 to 3 cm. gaseous distention of bowel and stomach CT chest PE protocol done showed no evidence of PE, no evidence of bowel obstruction. Secretions in the right lower lobe and right middle lobe airways with atelectasis of the right middle lobe Patient admitted to internal medicine service 08/18/2024 Patient is in the ICU. Intubated and sedated and on mechanical ventilator. Assist-control with respiratory rate 22, tidal volume 350 FiO2 40% and PEEP of 5. Chest x-ray showed severe thoracic deformity secondary to underlying scoliosis limiting the evaluation. Improving aeration on the left. Hazy density feeling most of the right side of the chest suspected pleural effusion with underlying atelectasis and/or consolidation likely similar. Patient had antibiotic ceftriaxone. Also on IV hydration with D5 normal saline at 100 cc/h. Laboratory data showed WBC 13.8 hemoglobin 11.9 and platelets 252 sodium 133 potassium 2.1 chloride 104 bicarb is 21 BUN less than 20 creatinine 0.15 and blood sugar 129 and calcium 8.2. Critical care team on board. 08/19/2024 Patient is in the MICU. Intubated, sedated and on mechanical ventilator. Continued on IV antibiotics and follow ceftriaxone 1 g IV PV and also on IV hydration with normal saline. Patient was also started on tube feeding at 40 cc/h. Laboratory data showed WBC 10.3 hemoglobin 11.8 and platelets 253 BUN 4 and creatinine 0.15 and calcium 8.1. Chest x-ray this morning showed severely limited exam due to combination of thoracic deformity, positioning and sitting down. Unable to visualize ET tube. Suspect underlying sizable right pleural effusion with adjacent atelectasis and/or consolidation. 08/20/2024 Patient is in the MICU. On mechanical ventilator. Sedation is on hold.. Failed weaning trial yesterday. Currently on assist-control with respirate rate of 20 tidal volume 350 FiO2 30% and PEEP of 5. Patient remains on antibiotics in the form of ceftriaxone 1 g daily. Chest x-ray showed suboptimal study. Low-lying endotracheal tube should be pulled back 1 to 2 cm to be more ideal position. Persistent low lung volumes and bilateral central opacities consistent with acute infiltrates and marrow edema. 08/21/2024 Patient is in the MICU. He had weaning trial yesterday and was placed on BiPAP until 6 PM and eventually he became more short of breath and obtunded. Patient was reintubated. Currently on assist-control with tidal volume 350 respiratory 20 FiO2 50% and PEEP of 5. Patient is also sedated and on tube feeding. Chest x-ray showed suboptimal study. Persisted low lung volumes and bilateral central opacities consistent with acute infiltrates and edema. Patient is on ceftriaxone empirically. Laboratory data showed WBC 7.9 hemoglobin 11.2 and platelets 161 sodium 136 potassium 3.2 chloride 103 bicarbonate 25 BUN less than 20 creatinine 0.15 and calcium 8.3. Critical care team is on board. 08/25/2024 Patient is MICU. Patient had shallow rapid breathing while on BiPAP. Become unresponsive to painful and verbal stimuli. Patient was reintubated. Bronchoscopy was done followed by intubation and showed moderate amount of thick respiratory secretions identified in the lower lung foster bilaterally and therapeutic airway suctioning was done. Patient is on tube NG feeding. Chest x-ray showed low lung volumes with perihilar opacities possibly representing pulmonary edema versus pneumonia versus atelectasis. NG tube appears to be in appropriate position with gaseous distention of the stomach. Laboratory data showed WBC 8.2 hemoglobin 11.2 and platelets 349 sodium 139 potassium 4.7 chloride 102 bicarb is 30 BUN 4 and creatinine 0.15 and blood sugar 112 and calcium 8.9. Critical care team is on board. 08/26/2024 Patient is in the MICU. On mechanical ventilator. Sedation is off. Currently on his control with tidal volume 350, respiratory rate 20, FiO2 50% with a PEEP of 5. Chest x-ray showed right lower lobe consolidation along with severe kyphoscoliosis of the spine. NG tube feeding. BAL cultures pending. Currently on antibiotics. Laboratory data showed WBC 8.27, hemoglobin 9.9 and platelets 404, sodium 134 potassium 4.0 chloride 101 bicarb is 30 BUN 7 and creatinine 0.15 and blood sugar 123. Calcium 8.6. 08/27/2024 Patient is in the MICU. Awake and alert. On mechanical ventilator., Assist- control respiratory rate 14 tidal volume 350 FiO2 40% and PEEP of 5. Currently on Precedex at 0.7 mcg/kg/min. Tolerating NG tube feeding. On IV hydration with D5 half-normal saline at 100 cc/h. Laboratory data showed WBC 6.8 hemoglobin 10.1 and platelets 405 sodium 138 potassium 4.0 chloride 103 bicarb is 27 BUN 4 and creatinine 0.15 and blood sugar 117 and calcium 8.9. BAL cultures showed no growth. Family is agreeable for tracheostomy if BiPAP fails. 08/28/2024 Patient is in the MICU. Patient is awake and alert. Trying to communicate. Patient is currently on BiPAP and FiO2 weaned down to 50% this morning. Continued on IV hydration with D5 half normal saline and NG tube feeding. Cultures negative. Antibiotics have been discontinued. Patient was given a dose of IV Lasix 20 mg x 1 today. Chest x-ray showed stable appearance of lungs which are obscured because of patient positioning. Laboratory data showed WBC 6.1 hemoglobin 10.8 and platelets 399 sodium 139 potassium 4.3 chloride 100 bicarb is 33 BUN 5 and creatinine 0.15 and blood sugar 113 and calcium 9.2. Family decided on hospice and making comfort measures only 08/29/2024 Patient has . According to nursing documentation, time of is 06 40 on 08/29/2024. The impression and plan of care has been dictated by Princess Mojica, Nurse Practitioner as directed. Dr. Xochilt MD I have performed a history and examination and MDM of this patient, discussed the same with the dictator, and agree with the dictator's assessment and plan as written ,documented as a scribe. Based on total visit time, I have performed more than 50% of the visit. Patient Condition at Discharge: Undetermined Plan - Discharge Summary Discharge Rx Participant: No New Discharge Prescriptions: No Action atenoloL [Tenormin] 25 mg PO DAILY Inulin/Chromium Picolinate [Fiber Gummies Chew] 2 tab PO DAILY Cetirizine HCl [Zyrtec] 10 mg PO DAILY Alpine-3/Dha/Epa/Fish Oil [Fish Oil 1,000 mg Softgel] 1 cap PO DAILY lisinopriL [Zestril] 5 mg PO DAILY Multivitamins, Thera [Multivitamin (formulary)] 1 tab PO DAILY Azelastine HCl [Astelin Nasal [place]] 1 spray EA NOSTRIL BID Ascorbic Acid [Vitamin C] 1,000 mg PO DAILY Discharge Medication List Ascorbic Acid [Vitamin C] 1,000 mg PO DAILY 08/16/24 [History] Azelastine HCl [Astelin Nasal [place]] 1 spray EA NOSTRIL BID 08/16/24 [History] Cetirizine HCl [Zyrtec] 10 mg PO DAILY 08/16/24 [History] Inulin/Chromium Picolinate [Fiber Gummies Chew] 2 tab PO DAILY 08/16/24 [History] Multivitamins, Thera [Multivitamin (formulary)] 1 tab PO DAILY 08/16/24 [History] Alpine-3/Dha/Epa/Fish Oil [Fish Oil 1,000 mg Softgel] 1 cap PO DAILY 08/16/24 [History] atenoloL [Tenormin] 25 mg PO DAILY 08/16/24 [History] lisinopriL [Zestril] 5 mg PO DAILY 08/16/24 [History] Follow up Appointment(s)/Referral(s): Ervin More DO [Primary Care Provider] - 1-2 days Discharge Disposition: - Preliminary Cause of Preliminary Cause of : Muscular dystrophy with respiratory failure
== END 2024-08-29 10:34 | disposition expired | DRG 870 ==
LOC: EC 17:33 → 2SICU 20:06 → 3SCARD 08-28 22:47
PROVIDERS: ADMIT Hospitalist; ATTEND Hospitalist
PROC: 5A1955Z Respiratory Ventilation, Greater than 96 Consecutive Hours (ICD-10-PCS; 2024-08-16)
PROC: 0BH18EZ Insertion of Endotracheal Airway into Trachea, Via Natural or Artificial Opening Endoscopic (ICD-10-PCS; 2024-08-16)
PROC: 0BH18EZ Insertion of Endotracheal Airway into Trachea, Via Natural or Artificial Opening Endoscopic (ICD-10-PCS; 2024-08-21)
PROC: 5A1945Z Respiratory Ventilation, 24-96 Consecutive Hours (ICD-10-PCS; 2024-08-21)
PROC: 5A09357 Assistance with Respiratory Ventilation, Less than 24 Consecutive Hours, Continuous Positive Airway Pressure (ICD-10-PCS; 2024-08-21)
PROC: 0BH18EZ Insertion of Endotracheal Airway into Trachea, Via Natural or Artificial Opening Endoscopic (ICD-10-PCS; principal; 2024-08-25)
PROC: 0B9J8ZZ Drainage of Left Lower Lung Lobe, Via Natural or Artificial Opening Endoscopic (ICD-10-PCS; 2024-08-25)
PROC: 0B9F8ZZ Drainage of Right Lower Lung Lobe, Via Natural or Artificial Opening Endoscopic (ICD-10-PCS; 2024-08-25)
PROC: 0B9F8ZX Drainage of Right Lower Lung Lobe, Via Natural or Artificial Opening Endoscopic, Diagnostic (ICD-10-PCS; 2024-08-25)
PROC: 5A1945Z Respiratory Ventilation, 24-96 Consecutive Hours (ICD-10-PCS; 2024-08-25)
PROC: 03HY32Z Insertion of Monitoring Device into Upper Artery, Percutaneous Approach (ICD-10-PCS; 2024-08-25)
PROC: 4A133B1 Monitoring of Arterial Pressure, Peripheral, Percutaneous Approach (ICD-10-PCS; 2024-08-25)
PROC: 4A133J1 Monitoring of Arterial Pulse, Peripheral, Percutaneous Approach (ICD-10-PCS; 2024-08-25)
DX: A41.9 Sepsis, unspecified organism (principal); J96.22 Acute and chronic respiratory failure with hypercapnia; J96.21 Acute and chronic respiratory failure with hypoxia; J15.9 Unspecified bacterial pneumonia; E87.4 Mixed disorder of acid-base balance; I46.9 Cardiac arrest, cause unspecified; J98.2 Interstitial emphysema; Z66 Do not resuscitate; Z51.5 Encounter for palliative care; R62.7 Adult failure to thrive; G71.01 Duchenne or Becker muscular dystrophy; J98.11 Atelectasis; I10 Essential (primary) hypertension; R54 Age-related physical debility; J30.2 Other seasonal allergic rhinitis; E87.6 Hypokalemia; E83.42 Hypomagnesemia; J98.4 Other disorders of lung; M41.9 Scoliosis, unspecified; Z79.899 Other long term (current) drug therapy; Z99.3 Dependence on wheelchair
CPT/HCPCS: 31500; 36410; 36415; 36600; 71045; 71275; 74160; 76937; 80048; 80053; 80202; 81001; 82803; 82805; 83605; 83735; 83880; 84132; 84145; 84443; 84484; 85025; 85027; 85610; 85730; 87070; 87205; 93005; 93306; 94002; 94003; 94640; 94660; 96361; 96374; 99291